=== PATIENT | female | born 1980 | race Caucasian/White ===

== ENCOUNTER → 2018-01-31 10:58 | Outpatient (CLI) | payer OTHER, SELFPAY | PROVIDERS: Family Provider Family Medicine; PCP Family Medicine; Visit Provider Family Medicine | DX: N39.0 Urinary tract infection, site not specified (principal) | CPT/HCPCS: 87086; 87088 ==

== ENCOUNTER → 2018-03-31 11:00 | Outpatient (CLI) | payer OTHER, SELFPAY ==
[2018-03-31 12:48] LABS: Vitamin D,25 Hydroxy 19.2 ng/mL (29.95-100.01)
[2018-03-31 12:50] LABS: Thyroid Stim Hormone (TSH) 0.45 uIU/mL (0.358-3.74)
== END ==
PROVIDERS: Family Provider Family Medicine; PCP Family Medicine; Visit Provider Family Medicine
DX: E55.9 Vitamin D deficiency, unspecified (principal); F41.9 Anxiety disorder, unspecified
CPT/HCPCS: 36415; 82306; 84443

== ENCOUNTER → 2018-04-04 13:14 | Outpatient (CLI) | payer OTHER, SELFPAY | PROVIDERS: Visit Provider Obstetrics & Gynecology | DX: N39.0 Urinary tract infection, site not specified (principal) | CPT/HCPCS: 87086; 87088 ==

== ENCOUNTER → 2018-05-11 13:13 | Outpatient (CLI) | payer OTHER, SELFPAY ==
[2018-05-16 09:07] LABS: HPV Reflexed? NOT INDICATED
== END ==
PROVIDERS: Family Provider Family Medicine; PCP Family Medicine; Visit Provider Obstetrics & Gynecology
DX: Z12.4 Encounter for screening for malignant neoplasm of cervix (principal)
CPT/HCPCS: 88175; G0145

== ENCOUNTER → 2018-07-04 15:43 | Outpatient (CLI) | payer OTHER, SELFPAY ==
[2018-07-04 19:42] LABS: Chlamydia Trachomatis by PCR Negative (Negative); Neisserai gonorrhoeae by PCR Negative (Negative); Probe Check PASS; Sample Adequacy Control PASS; Specimen Processing Control PASS
== END ==
PROVIDERS: Family Provider Family Medicine; PCP Family Medicine; Referring Provider Obstetrics & Gynecology; Visit Provider Obstetrics & Gynecology
DX: Z11.3 Encounter for screening for infections with a predominantly sexual mode of transmission (principal)
CPT/HCPCS: 87491; 87591

== ENCOUNTER → 2018-07-21 12:07 | Outpatient (CLI) | payer OTHER, SELFPAY ==
[2018-07-21 14:19] LABS: Absolute Neutrophil Count 3.9 X10^3/uL (2.0-7.7); Basophil# 0.02 X10^3/uL; Basophil% 0.3 % (0-1); Eosinophil# 0.17 X10^3/uL; Eosinophils% 2.5 % (0-5); Hematocrit 40.1 % (37-47); Lymphocyte % 31.4 % (19-41); Mean Corp Hgb Conc 32.4 g/gl (32-36); Mean Corpuscular Hgb 28.3 pg (27.0-32.0); Mean Corpuscular Volume 87.2 fL (81-99); Mean Platelet Vol. 10.9 fl (6.2-12.0); Monocyte# 0.51 X10^3/uL; Monocyte% 7.6 % (0-10); Neutrophil # 3.88 X10^3/uL (2.7-7.7); Neutrophil % 58.1 % (47-70); Platelet Count 204 K/mm3 (150-450); RBC Distribution Width CV 12.5 % (11.6-14.6); RBC Distribution Width SD 39.8 fl (35.1-43.9); White Blood Count 6.7 K/mm3 (4.4-11.0)
[2018-07-21 14:20] LABS: POSITIVE COUNT NO; POSITIVE DIFFERENTIAL NO; POSITIVE MORPHOLOGY NO
[2018-07-21 14:44] LABS: ALB/GLOB Ratio 1.1 RATIO (0.9-2.4); AST(SGOT) 18 U/L (15-37); Alanine Aminotransfer ALT/SGPT 27 U/L (13-56); Albumin, Serum 3.8 g/dL (3.2-5.0); Alkaline Phosphatase 52 U/L (45-117); Anion Gap 6 (5-15); BUN 17 mg/dL (7-18); BUN/Creat Ratio 19.4 RATIO (10-20); Calcium,Total 8.4 mg/dL (8.5-10.1); Chloride 105 mmol/L (98-107); Creatinine, Serum 0.88 mg/dL (0.55-1.02); EST Glomerular Filtration Rate 77 mL/min (>60); Est Glom Filt Rate - Afr Amer 93 mL/min (>60); Free T3 2.2 pg/mL (2.18-3.98); Globulin 3.5 g/dL (2.2-4.2); Glucose 83 mg/dL (74-106); Potassium 4.1 mmol/L (3.5-5.1); Protein, Total 7.3 g/dL (6.4-8.2); Sodium Level 139 mmol/L (136-145); T4 Free Direct 0.95 ng/dL (0.76-1.46); Thyroid Stim Hormone (TSH) 1.62 uIU/mL (0.358-3.74)
[2018-07-21 14:53] LABS: Vitamin D,25 Hydroxy 18.6 ng/mL (29.95-100.01)
== END ==
PROVIDERS: Family Provider Family Medicine; PCP Family Medicine; Visit Provider Family Medicine
DX: M25.50 Pain in unspecified joint (principal); E03.9 Hypothyroidism, unspecified; E55.9 Vitamin D deficiency, unspecified
CPT/HCPCS: 36415; 80053; 82306; 84439; 84443; 84481; 85025

== ENCOUNTER 2018-07-25 12:30 | Outpatient (RCR) | payer OTHER, SELFPAY ==
--- NOTE | 2018-04-28 13:06 | MASS.EVAL_ITS ---
Massage Therapy Evaluation: Initial Evaluation Date: 04/20/2018 SUBJECTIVE: Jolynn is a 37 year old female who was referred to the [facility] for a massotherapy evaluation by Dr. Cheatham with the diagnosis of back and neck pain. Jolynn presents today with the symptoms of neck and upper back pain and tension. She also has muscle tension and pain in his low back. She reports having a medical history of chronic neck pain with radiating pain in her neck, upper and mid back. She reports having minimal limitations during her daily activities. OBJECTIVE: Upon observation Jolynn has poor posture with her head forward and shoulders forward from the neutral position in sitting and standing. After examination and palpation I found her to have very high muscle tension with tenderness and myofascial restrictions in her sub occipitals, levator scapulae, trapezius, rhomboids, scalenes, and thoracic paraspinals. Her cervical through lumbar paraspinals were tight and ropey. The first treatment consisted of a one hour massage to her full body with myofascial release, muscle stripping, trigger point compression techniques, and cervical manual traction. ASSESSMENT: I feel that Jolynn is a good candidate for massotherapy at this time. She had a favorable response to the first treatment with reduction in her muscle aches, pain and tension. She was able to relax and tolerate deeper pressure when needed PLAN: The plan of care was reviewed with the patient. The patient is to be seen on as needed basis for a total of ten sessions with the recommendation of once every four weeks for a one hour treatment.
--- NOTE | 2018-08-14 11:20 | DS.PCM_ITS ---
Massage Therapy Discharge Summary: Initial Evaluation: 04/30/2018 Diagnosis: Cervicalgia No. of Visits: Date of last visit: 07/25/2018 Goals: Decreased headaches Decreased back and neck pain Decreased muscle tension This patient is being discharged from our care at the [facility]. Thank you, Ariadne Gonzalez LMT
== END 2018-07-25 19:00 | disposition home or self-care (01) ==
LOC: MASS 12:30
PROVIDERS: Family Provider Family Medicine; PCP Family Medicine; Visit Provider Family Medicine
DX: M54.2 Cervicalgia (principal); M54.9 Dorsalgia, unspecified
CPT/HCPCS: 97124

== ENCOUNTER → 2018-11-19 14:24 | Outpatient (CLI) | payer OTHER, SELFPAY ==
[2018-11-19 10:20] VITALS: BMI 25.0
[2018-11-19 14:25] LABS: Bacteria 0 SEEN /hpf (None Seen); Mucous, Urine 0 SEEN /hpf (<or=2+); Red Blood Cells-Urine 0 SEEN /hpf (0-5)
[2018-11-19 14:42] LABS: Color, Urine Yellow (Yellow); Glucose, Dipstick Normal (Normal); Ketone-Dipstick Negative (Negative); Leukocyte Esterase-Dipstick Negative /ul (Negative); Nitrite-Dipstick Negative (Negative); Occult Blood-Urine Negative /ul (Negative); Protein-Dipstick Negative (Negative); Urine Bilirubin Dipstick Negative (Negative); Urine Clarity Clear (Clear); Urine Urobilinogen Normal (Normal)
[2018-11-19 14:51] LABS: Squamous Epithelial Cells - UA 0-5 SEEN /hpf (5-10); White Blood Cells 0-5 SEEN /hpf (0-5)
== END ==
PROVIDERS: Family Provider Family Medicine; PCP Family Medicine; Referring Provider Physician Assistant; Visit Provider Physician Assistant
DX: R30.0 Dysuria (principal)
CPT/HCPCS: 81001; 87086; 87088

== ENCOUNTER → 2019-03-12 | Outpatient (CLI) | payer OTHER, SELFPAY ==
[2018-11-19 10:20] VITALS: BMI 25.0
[2019-03-12 10:06] LABS: Mucous, Urine 0 SEEN /hpf (<or=2+); Red Blood Cells-Urine 0 SEEN /hpf (0-5)
[2019-03-12 13:20] LABS: Color, Urine Straw (Yellow); Glucose, Dipstick Normal (Normal); Ketone-Dipstick 5 mg/dl (Negative); Leukocyte Esterase-Dipstick 500 /ul (Negative); Nitrite-Dipstick Negative (Negative); Occult Blood-Urine 25 /ul (Negative); Protein-Dipstick 30 mg/dl (Negative); Specific Gravity, Urine 1.025 (1.002-1.030); Urine Bilirubin Dipstick Negative (Negative); Urine Clarity Cloudy (Clear); Urine Urobilinogen Normal (Normal)
[2019-03-12 13:23] LABS: White Blood Cells >100 SEEN /hpf (0-5)
[2019-03-12 13:24] LABS: Amorphous Sediment 3+; Bacteria 4+ /hpf (None Seen); Squamous Epithelial Cells - UA 0-5 SEEN /hpf (5-10)
== END | disposition home or self-care (01) ==
LOC: LABSPEC 10:03
PROVIDERS: Family Provider Family Medicine; PCP Family Medicine; Referring Provider Family Medicine; Visit Provider Family Medicine
DX: R30.0 Dysuria (principal)
CPT/HCPCS: 81001; 87086; 87088

== ENCOUNTER → 2019-04-26 08:41 | Outpatient (CLI) | payer OTHER, SELFPAY ==
[2018-11-19 10:20] VITALS: BMI 25.0
[2019-04-26 10:49] LABS: Thyroid Stim Hormone (TSH) 0.69 uIU/mL (0.358-3.74)
[2019-04-27 14:43] LABS: PTHIN 60.6 pg/mL (18.4-80.1)
== END ==
PROVIDERS: Family Provider Family Medicine; PCP Family Medicine; Referring Provider Family Medicine; Visit Provider Family Medicine
DX: E03.9 Hypothyroidism, unspecified (principal); E55.9 Vitamin D deficiency, unspecified
CPT/HCPCS: 36415; 82306; 83970; 84443

== ENCOUNTER → 2019-07-25 13:15 | Outpatient (CLI) | payer SELFPAY ==
[2018-11-19 10:20] VITALS: BMI 25.0
--- NOTE | 2019-07-25 13:32 | MRI_ITS ---
STUDY: BILATERAL BREAST MR WITHOUT AND WITH CONTRAST REASON FOR EXAM: Female, 38 years old. Bilateral implant placement in 2002. Evaluation for implant integrity. TECHNIQUE: Multi-sequence multi-echo imaging of both breasts was performed with a dedicated breast coil. T1-weighted and T2-weighted images were performed without intravenous contrast. COMPARISON: MRI of the breast dated October 12, 2016. FINDINGS: Bilateral subpectoral silicone implants with prominent folds bilaterally, relatively unchanged. No intracapsular or extracapsular rupture. There are no enlarged or abnormal lymph nodes. There is no abnormality in the visualized regions of the chest or liver. MRI/BREAST W/O CONT BILAT IMPRESSION: Bilateral subpectoral silicone implants with prominent folds and no other abnormality. CATEGORY: BIRADS Category 2: Benign. A letter regarding these results will be sent to the patient by the facility within 30 days. Electronically Signed: Horacio Noel MD at 18:00 EST , Service support ,
== END ==
PROVIDERS: Family Provider Family Medicine; PCP Family Medicine; Referring Provider Family Medicine; Visit Provider Family Medicine
DX: Z98.82 Breast implant status (principal)
CPT/HCPCS: 77047

== ENCOUNTER → 2019-10-15 11:53 | Outpatient (CLI) | payer OTHER, SELFPAY ==
[2018-11-19 10:20] VITALS: BMI 25.0
[2019-10-15 15:57] LABS: Free T3 2.6 pg/mL (2.18-3.98); T4 Free Direct 1.07 ng/dL (0.76-1.46); Thyroid Stim Hormone (TSH) 0.75 uIU/mL (0.358-3.74)
== END ==
PROVIDERS: Nurse Practitioner Adult Health; PCP Family Medicine; Referring Provider Family Medicine; Visit Provider Family Medicine
DX: E03.9 Hypothyroidism, unspecified (principal)
CPT/HCPCS: 36415; 84439; 84443; 84481

== ENCOUNTER 2020-03-18 14:00 | Outpatient (RCR) | payer OTHER, SELFPAY ==
[2020-03-10 09:21] VITALS: BMI 25.0
--- NOTE | 2020-03-18 14:36 | BH.MTP_ITS ---
Master Treatment Plan - Patient Information Program Physician:: Dr. Gaona Primary Therapist:: Rosalba Wood, [facility] - Psychiatric Diagnoses Psychiatric Diagnoses:: Major depressive disorder, recurrent, severe without psychosis; generalized anxiety disorder Diagnosis Code(s):: F33.2 - Estimated LOS Estimated LOS (in weeks):: 6 Problem/Goal #1 - Problem/Goal #1 Stated Goal:: Client will decrease depression, feeling of worthlessness, and suicidal ideation due to Major Depression Disorder through Intensive Outpatient Program. Description of Barriers: Pt's negative thought patterns, low self-esteem, dissatisfaction with work, relationship stress and daily suicidal thoughts. Functional Impact: Pt presented to [facility] with increased suicidal thoughts, worsening depression and anxiety. Pt reported struggling with worsening mental health symptoms at beginning of 2019. Pt attributed worsening mental health symptoms to numerous changes within her work department that led to decreased job satisfaction. Pt was planning to move to a different position but once the pandemic happened pt stated there were no positions available. Pt stated her mental health symptoms interfere with her ability to function at baseline while at work. Pt reported she sleeps a lot which impacts her involvement with her daughter. Pt is seeking FMLA off of work due to mental health symptoms. Goal Relevant Strengths/Supports: Pt is resilient, intelligent, goal-oriented, and expresses motivation to get better. - Objectives Objective #1 Stated Objective: Identify and replace 3-4 negative and distorted thought pa tterns that reinforce depressive symptoms.?? Interventions: Therapist will help client identify distorted, negative beliefs about self and world and replace those messages with positive, affirmative messages.? Discharge Criteria: Client will have achieved this goal when can identify at least 3 negative and distorted messages and replace those messages with positive, affirmative messages and be able to combat suicidal thoughts. Target Date: 04/29/20 Review Date: 04/15/20 Objective #2 Stated Objective: Pt will decrease depressive symptoms AEB pt?s score on the DSM 5 cross-cutting measure and improve pt?s daily functioning. Interventions: Through groups and individual therapy, pt will be provided with education on cognitive distortions, mistaken beliefs, and identifying and combating negative self-talk. Therapist will assist pt with getting back into the activities she once enjoyed as well as increasing healthy coping strategies. Discharge Criteria: Pt will have met this goal when pt?s score on the DSM 5 c ross cutting measure for depression has been decreased and per pt?s report daily functioning has improved. Target Date: 04/29/20 Review Date: 04/15/20 Problem/Goal #2 - Problem/Goal #2 Stated Goal:: Client will reduce overall frequency, intensity, and duration of the anxiety so that daily functioning is not impaired.? Description of Barriers: Pt's negative thought patterns, low self-esteem, dissatisfaction with work, relationship stress and daily suicidal thoughts. Functional Impact: Pt presented to [facility] with increased suicidal thoughts, worsening depression and anxiety. Pt reported struggling with worsening mental health symptoms at beginning of 2019. Pt attributed worsening mental health symptoms to numerous changes within her work department that led to decreased job satisfaction. Pt was planning to move to a different position but once the pandemic happened pt stated there were no positions available. Pt stated her mental health symptoms interfere with her ability to function at baseline while at work. Pt reported she sleeps a lot which impacts her involvement with her daughter. Pt is seeking FMLA off of work due to mental health symptoms. Goal Relevant Strengths/Supports: Pt is resilient, intelligent, goal-oriented, and expresses motivation to get better. - Objectives Objective #1 Stated Objective: Client will learn and implement 2-3 calming skills to reduce overall anxiety and manage anxiety symptoms. Interventions: Therapist will teach client calming/relaxation skills and assign client homework which practices relaxation skills daily. Discharge Criteria: Client will have achieved this goal when can verbalize at least 2 calming skills and implement those skills successfully. Target Date: 04/29/20 Review Date: 04/15/20 Objective #2 Stated Objective: Pt will decrease anxious symptoms AEB pt?s score on the DSM 5 cross-cutting measure improve pt?s daily functioning. Interventions: Through groups and individual therapy, pt will be provided education about anxiety?s impact on body and common physiological reaction to anxiety. Therapist will teach pt appropriate breathing techniques and build healthy coping skills to manage daily anxieties. Discharge Criteria: Pt will have met this goal when pt?s score on the DSM 5 cross cutting measure for anxiety has been decreased and per pt?s report daily functioning has improved. Target Date: 04/29/20 Review Date: 04/15/20
--- NOTE | 2020-03-18 15:33 | BH.MDN ---
Multi-Disciplinary Note - Note 60-min Individual Time Started:: 13:00 Date: 03/18/20 Time Stopped:: 14:00
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
--- NOTE | 2020-03-19 13:09 | BH.PSY.EVA_ITS ---
Initial Treatment Plan - Patient Information Visit Information: ADMISSION DATE: EXPECTED LOS: 4-6 weeks - Problems/Symptoms Problem #1:: Depression Symptom:: Sadness, crying, hopelessness, worthlessness, anhedonia, suicidal paola ation, biological disruption of sleep Problem #2:: Anxiety Symptom:: Inner restlessness< rumination, worry
--- NOTE | 2020-03-20 13:33 | BH.MDN ---
Multi-Disciplinary Note - Note 45-min Individual Time Started:: 11:05 Date: 03/20/20 Time Stopped:: 11:45
--- NOTE | 2020-03-21 14:34 | BH.MDN ---
Multi-Disciplinary Note - Note 45-min Individual Time Started:: 11:02 Date: 03/21/20 Time Stopped:: 11:50
--- NOTE | 2020-03-25 14:34 | BH.MDN ---
Multi-Disciplinary Note - Note 45-min Individual Time Started:: 14:33 Date: 03/25/20 Time Stopped:: 15:19
--- NOTE | 2020-03-31 09:05 | BH.SGPN.GN ---
Behaviors/Verbalizations/Mental Status: []Client alert and oriented, neatly dressed and groomed. Eye contact good. Motor activity appropriate. Speech within normal limits. Affect unable to gather due to wearing a mask for COVID-19 protocol, mood dysthymic. Thoughts linear, logical, no signs of hallucinations or delusions. Reviewed client?s symptom tracker, and client indicated a 2/5 for thoughts of suicide and 0/5 for risk of suicide. Client Response/Progress/Benefit: []Client responded well to session, receptive to feedback and support. Client's first day of IOP group and client reports feeling anxious and depressed this morning. Client shared her depression and anxiety are what brought client to IOP and client shared her symptoms have been getting worse since October. Client stated she was unable to take time off work because her department was under-staffed. Client stated when she finally took time off for her mental health I lost it. Client reported she wants to work on building healthy coping skills to reduce her anxiety and depression. Client would like to improve her mental health, so client can return to work and function at her baseline. Appeared to benefit from connecting with peers. Will continue IOP tx to prevent decompensation, maintain safety, and improve emotional regulation. Narrative Note: []
--- NOTE | 2020-03-31 10:14 | BH.SGPN.GN ---
Behaviors/Verbalizations/Mental Status: []Client alert and oriented, casual dress, hygiene tended to. Eye contact fair. Motor activity appropriate. Speech within normal limits. Affect could not be assessed due to pt wearing a mask as a requirement for COVID-19 pandemic. mood anxious and dysthymic. Thoughts linear, logical, no signs of hallucinations or delusions. Client Response/Progress/Benefit: []Pt receptive to session, quiet but provided input at times and listened attentively to peers. Provided input as the group brainstormed the positive and negative aspects of stress on physical and mental health. Group did well to identify that the benefits of stress include: motivates us, heightened senses/focus, increased productivity, and keeps us safe. Client identified her current stressors that impact her the most include: feeling like not good enough mom for her daughter, not feeling good enough for her boyfriend and wanting to find a new job. Seemed to benefit from increased awareness of personal stressors and understanding impact of stress of the mind and body. First day in IOP groups. Recommended to continue IOP tx to improve healthy coping skill application, increase self-confidence, and prevent decompensation. Narrative Note: []
--- NOTE | 2020-03-31 11:16 | BH.SGPN.GN ---
Behaviors/Verbalizations/Mental Status: []Client alert and oriented, casually dressed and groomed. Eye contact good. Motor activity appropriate. Speech within normal limits, quiet. Affect unable to gather due to wearing a mask for COVID-19 protocol, mood depressed and anxious. Thoughts linear, logical, no signs of hallucinations or delusions. Client Response/Progress/Benefit: []Client engaged participant in session AEB client listening attentively to others, providing some input, and taking notes during session. Client reported when she does not manage stress well client experiences increased isolation and negative thinking. Reports this ?helps in the short-term but makes things worse in the long-run?. Client contributing during discussion about the 4 A's of managing stress. Client able to give different strategies for all the A's and indicated agreeing with several of the suggestions presented by the group. Identified she wants to work on managing stressor of feeling ?I?m not enough for my daughter? by identifying and altering her distorted thoughts and instead focusing on her strengths as a mother. Client shared this will help reduce negative thoughts and increase self-confidence. Client seemed to benefit from increased awareness of the impact of stress on mental health and increasing repertoire of stress management strategies. Will continue IOP tx to promote use of healthy coping skills, improve management of depression and anxiety, as well as prevent decompensation. Narrative Note: []
--- NOTE | 2020-03-31 14:35 | BH.MDN ---
Multi-Disciplinary Note - Note 45-min Individual Time Started:: 12:08 Date: 03/31/20 Time Stopped:: 12:46
--- NOTE | 2020-04-01 09:05 | BH.SGPN.GN ---
Behaviors/Verbalizations/Mental Status: [] Client alert and oriented, casual dress, hygiene tended to. Eye contact good. Motor activity appropriate. Speech within normal limits. Affect unable to accurately assess as client wearing mask per COVID-19 protocol, mood depressed and anxious. Thoughts linear, logical, no signs of hallucinations or delusions. Reviewed client?s symptom tracker, suicidal ideation self-reported as a 2/5 which is consistent with baseline, pt denies plan, or intent as of 04/01/20. Client Response/Progress/Benefit: [] Pt responded well to session, attentive and willing to provide input. Reports feeling anxious today as it is her second day in group treatment and is still learning to adjust to group setting. She did well to identify current mental health wins from prior day which included not going back to bed after group and spending time with her daughter. Did well to challenge herself to identify spending time with her daughter as a personal strength as a mother which she reports has been an area of struggle recently. Pt noted that her current stressor includes ongoing negative thoughts related to her current relationship. Identified thought challenging as a strategy helpful in managing her distortions. Progress limited as pt new to IOP setting, though appears to be doing well to internalize skills learned. Pt to continue IOP tx to increase coping skill repertoire, improve thought challenge skills, reduce depressive symptoms, and prevent decompensation.
--- NOTE | 2020-04-01 11:13 | BH.SGPN.GN ---
Behaviors/Verbalizations/Mental Status: []Client alert and oriented, casual appearance. Eye contact good. Motor activity appropriate. Speech within normal limits. Affect unable to gather due to wearing a mask for COVID-19 protocol, mood depressed. Thoughts linear, logical, no signs of hallucinations or delusions. Client Response/Progress/Benefit: []Client responded well to session, participating during the group activity and willing to complete the worksheet. Client completed the fear of failure worksheet and reported that fear of failure has kept client from pursuing a higher position at work and being vulnerable in relationships. Client able to identify barriers that reinforce her fear of failure which included: negative self-talk, discounting positives, lack of self-care, and unrealistic expectations. Client attentive during discussion of the different strategies to help overcome fear of failure. Group identified strategies such as: self-compassion, grounding, challenging distortions, and positive affirmations. Client reported her past failures have taught client that ?there are other chances, it?s not absolute.? Client appeared to benefit from learning ways to overcome fear of failure. Will continue IOP tx to prevent decompensation, increase healthy coping skills, and reduce distortions. Narrative Note: []
--- NOTE | 2020-04-03 13:36 | BH.MDN ---
Multi-Disciplinary Note - Note 60-min Individual Time Started:: 09:09 Date: 04/03/20 Purpose of session/treatment goals addressed:: To address current symptoms, negative thoughts, and stressors. Another goal was to create small behavioral activation goals for today. Eye Contact:: Good Motor Activity:: Appropriate Appearance:: Neat Speech:: Soft Mood:: Dysthymic Affect:: Congruent - tearful Thoughts:: Linear, Logical, No evidence of hallucinations/delusions noted Staff Interventions:: Therapist used active listening and open-ended questions to explore client's current stressors, symptoms, and negative thoughts. Therapist provided psychoeducation on maintenance cycles, distorted thoughts, and depression. Therapist used cognitive restructuring to help client identify and challenge distorted thoughts reinforcing depression and anxiety. Therapist used strengths perspective to help client identify mental health wins and combat self-judgment. Therapist gave client homework to engage in behavioral activation activities using LUNA (accomplishment, closeness, and enjoyment). Client Response:: Client responded well to session, open to meeting with this therapist as her usual IOP therapist is off today. Client stated on days she does not come to IOP, client has a very difficult time getting out of bed. Client reported I won't even be tired, I'll just lay in bed. Client connected with psychoeducation on depression and maintenance cycles. Client was tearful at times, especially when using should language on herself and thinking about her boyfriend. Client often used cognitive distortions and was receptive to this therapist helping client challenge them. Client admits to being hard on herself and shared that her low self-worth has caused client to push away supports. Discussed mind-reading and how pushing away supports reinforces depression and negative self-talk. Client and therapist discussed the benefits of self-care and client willing to set an LUNA goal today. Client stated her depression makes it hard for client to get things done because client does not have motivation. Client also has not been enjoying things, but client recognized that she cannot wait to find enjoyment client must create it. Client's goal today was to clean her bathroom, play a game with her daughter, and go to the [employer] store for supplies to try pour painting. Client shared she will follow through with these goals because typically if I tell someone I'll do something I do it. Plans to attend group tomorrow. Risks/Concerns:: Client reports having fleeting suicidal ideations every day, but denies any intent to act on these thoughts as of 04/03/20. Client reports ability to keep herself safe today and was future oriented. Client plans to go get craft supplies after IOP and play a game with her daughter ramona. Daughter is what keeps client from acting on her suicidal ideations. No access to weapons and her stepmother keeps client's medications. Progress Toward Goals/Plan:: Client's first week of IOP. Per client's report she is connecting well with peers and it is helpful to know I'm not alone. Client endorses a depressed mood with anhedonia, lack of energy, isolative behaviors, fleeting SI with methods of overdosing, negative thoughts of self, crying spells, weight loss, and lack of motivation. Client continues to feel able to keep herself safe and client does not have access to weapons and her stepmother has client's medications. Client will continue IOP tx to prevent decompensation, maintain safety, and increase healthy coping skills. Time Stopped:: 10:04
--- NOTE | 2020-04-04 09:00 | BH.SGPN.GN ---
Behaviors/Verbalizations/Mental Status: [] Eye contact is good. Motor activity is appropriate. Appearance is casual. Speech is Appropriate. Mood is euthymic. Affect is full. Thoughts are linear and logical. No evidence of psychosis. Reviewed daily check in sheet and no reports of suicidal ideations or intent. Client Response/Progress/Benefit: [] Pt participated at times during group discussion. Emotion for today is cautiously hopeful. Symptom tracker notes 4/5 for anxiety and hopelessness and 2/5 for agitation. Shared with the group that she completed her goal yesterday which involved LUNA in which she accomplished something, was close with someone, and did something that she enjoyed. States it was the best I've felt in months. Insight into how the tasks improved her mental health. Able to identify how she wanted to isolate however pushed herself to do something different which was effective. Progress noted. Benefited from group support, encouragement, and feedback. Will continue in IOP to maintain safety, improve functioning , and improve functioning to return to work. Narrative Note: []
--- NOTE | 2020-04-04 10:00 | BH.SGPN.GN ---
Behaviors/Verbalizations/Mental Status: []Client alert and oriented, casual appearance. Eye contact good. Motor activity appropriate. Speech within normal limits. Affect unable to gather due to wearing a mask for COVID, mood euthymic. Thoughts linear, logical, no signs of hallucinations or delusions. Client Response/Progress/Benefit: []Client responded well to session, attentive during discussion and engaged during the activity. Client connected with the quote and the barriers associated with making changes. Group reported even though change can be scary, change can be positive. Worked with the group to identify barriers to making change, which included: toxic supports, lack of resources and money, lack of time, cognitive distortions, and fear of failure. Client was frequently nodding when the group discussed fear of failure and fear of success as barriers to making changes. Client participated in the activity where they identified and discussed the emotions related to change. Benefited from increased awareness and understanding of emotions, benefits, and barriers related to change. Will continue IOP tx to prevent decompensation, maintain safety, and reduce cognitive distortions that reinforce low self-esteem. Narrative Note: []
--- NOTE | 2020-04-04 11:14 | BH.SGPN.GN ---
Behaviors/Verbalizations/Mental Status: []Client alert and oriented, casually dressed and groomed. Eye contact good. Motor activity appropriate. Speech within normal limits. Affect unable to gather due to wearing a mask for COVID-19 protocol, mood anxious. Thoughts linear, logical, no signs of hallucinations or delusions. Client Response/Progress/Benefit: []Client was an active participant throughout AEB actively listening and taking notes. Client attentive during discussion on the change process and review of emotions one might experience throughout the process of change. Expressed relating to the examples provided by fellow participants on their experiences in different stages of change. Client indicated discouragement, fear, and stress as emotions she has associated with change in the past. Client benefited from working with the group to identify potential strategies for promoting healthy change behaviors. Identified wanting to make more of an effort to track personal progress as a means of reminding herself of progress made towards the desired change already. Shared this will help remind her of where she is doing well even when faced with setbacks. Progress noted in pt self-report of increased skill application for challenging negative thoughts, though continues to struggle with negative self-talk and depression. Recommended continued IOP tx to prevent decompensation, promote increase use of affirmations, and increase application of anxiety and depression management skills. Narrative Note: []
--- NOTE | 2020-04-07 09:01 | BH.SGPN.GN ---
Behaviors/Verbalizations/Mental Status: []Client alert and oriented, casually dressed and groomed. Eye contact good. Motor activity appropriate. Speech within normal limits. Affect unable to gather due to wearing a mask for COVID-19 protocol- but tearful, mood dysthymic and anxious. Thoughts linear, logical, no signs of hallucinations or delusions. Reviewed client?s symptom tracker, 2/5 for thoughts of suicide and 0/5 for risk or intent as of 04/07/20. Future oriented. Client Response/Progress/Benefit: []Client responded well to session, attentive and providing supportive statements. Client reports feeling sick to my stomach today due to ruminations and stressors within her relationship. Client declined to go into detail about the relationship stressors. Client stated she only stayed in bed one day this weekend which is progress as client has been significantly struggling to get out of bed. Client shared she went for a hike, took pictures of the [place], and practiced thought challenging this weekend. Appeared to benefit from reflecting on her generalization of coping skills. Progress noted as client reported reduced isolation this weekend. Will continue IOP tx as to prevent decompensation, improve emotional regulation, and reduce negative thinking. Narrative Note: []
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
--- NOTE | 2020-04-07 11:15 | BH.SGPN.GN ---
Behaviors/Verbalizations/Mental Status: []Client alert and oriented, casually dressed and groomed. Eye contact fair. Motor activity appropriate. Speech within normal limits. Affect could not be assessed due to pt wearing a mask as a requirement during the COVID-19 pandemic. Mood depressed and anxious. Thoughts linear, logical, no signs of hallucinations or delusions. Client Response/Progress/Benefit: []Client responded well to session, contributing at times to discussion, and appeared to listen attentively to peers. Remained attentive during psychoeducation on the boundary setting styles and nodded as fellow participants discussed areas in which they have struggled with each style. Pt stated she has porous boundaries with her family and friends because she struggles with saying no and just goes along with what others want to do. Pt reported she has rigid boundaries within her romantic relationship because she keeps her current boyfriend at a distance because of fear she will get hurt. Pt recognizes Pt attributed having porous boundaries to having a whom is very rigid so she doesn't feel like her opinions matter. Pt did complete task of identifying a small goal she can work towards to improve her boundaries. Seemed to benefit from increased awareness of how her current boundary style impacts her mental health. Will continue IOP tx to increase use of healthy coping skills, maintain safety, and prevent decompensation. Narrative Note: []
--- NOTE | 2020-04-08 10:05 | BH.SGPN.GN ---
Behaviors/Verbalizations/Mental Status: []Client alert and oriented, neatly dressed and groomed. Eye contact good. Motor activity appropriate. Speech within normal limits. Affect unable to gather due to wearing a mask for COVID-19 protocol, mood dysthymic. Thoughts linear, logical, no signs of hallucinations or delusions Client Response/Progress/Benefit: []Client was an active participant as shown by contributing to discussion. Client shared connecting to group topic of self-care and commented that she often puts off self-care by telling herself ?I just need to get through this month.? However, client recognized this only makes her mental health suffer. Client helped the group discuss the costs of not practicing self-care which included: poor functioning, increased depression and anxiety, poor memory, lack of concentration, more negative thinking, and harms relationships. Participated in the discussion of the common myths about self-care including: ?one and done,? selfish, not a big deal, makes a person look weak, and not having time. Client participated in the discussion on debunking of these myths. Client seemed to benefit from increased awareness of the importance of self-care and challenging common myths that prevent practicing self-care. Progress noted as client reports more awareness of distortions that reinforce depression and anxiety. Will continue IOP tx to further decrease intensity of symptoms that impair functioning and to reduce cognitive distortions. Narrative Note: []
--- NOTE | 2020-04-08 11:14 | BH.SGPN.GN ---
Behaviors/Verbalizations/Mental Status: []Client alert and oriented, casual dress, hygiene tended to. Eye contact good. Motor activity appropriate. Speech within normal limits. Affect could not be assessed due to pt wearing a mask for COVID-19 safety precautions. mood anxious and depressed. Thoughts linear, logical, no signs of hallucinations or delusions. Client Response/Progress/Benefit: [] Client remained a more active participant AEB pt providing increased input during session, listening attentively to others, and willing to complete self-assessment worksheet. Contributed to group discussion on various areas of self-care, benefits, and types of self-care activities for each area. Expressed that balance in these different areas can be difficult to maintain at times. Client completed activity in which she assessed her own utilization of the different areas of self-care. She was able to identify current practices she actively uses, as well as areas she can improve upon. Client reported she can improve her areas of emotional and social self-care. Stated she could begin to do so by making more of an effort to reach out to her supports more often rather than isolating or relying solely on one support. Client appeared to benefit from increasing awareness of how she can improve self-care balance. Progress noted as client has been able to increase self-awareness and begin to learn healthy coping skills, though continues to appear to struggle with distorted thoughts associated with her own self-worth and relationships with others that impedes pt ability to set boundaries and engage in self-care. Will continue IOP tx to increase utilization of healthy coping skills, challenge negative thoughts, maintain safety, and prevent decompensation. Narrative Note: []
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
--- NOTE | 2020-04-09 09:02 | BH.SGPN.GN ---
Behaviors/Verbalizations/Mental Status: []Client alert and oriented, casually dressed and groomed. Eye contact good. Motor activity appropriate. Speech within normal limits, quiet. Affect unable to gather due to wearing a mask for COVID-19 protocol, mood dysthymic and anxious. Thoughts linear, logical, no signs of hallucinations or delusions. Reviewed client?s symptom tracker. Client suicidal ideation reported as a 2/5 which is consistent with baseline, denies any current plan or intent as of 04/09/20. Client Response/Progress/Benefit: []Pt responded well to session, actively engaged throughout and was willing to process with group. Reports feeling ?disappointed today as she discussed being upset she has allowed others to violate her boundaries in the past and negatively impact her emotions. Pt was receptive of and appeared to benefit from support provided by group as well as identifying personal areas of progress in this area. Noted that she has made progress in creating new boundaries and following through with maintaining them. Discussed her goal had been to turn off her phone before bed to prevent from answering calls and texts late at night. Expressed feeling empowered by her ability to do so successfully which had encouraged her to leave her phone in the car during group as well. Expressed this will help to focus on the present rather than ruminate about why her boyfriend isn?t texting her which has been an ongoing stressor. Share improved positive self-talk as a result as well. Pt will continue IOP tx to increase utilization of healthy coping and thought challenge skills, improve anxiety management, and prevent decompensation. Narrative Note: []
--- NOTE | 2020-04-09 10:10 | BH.SGPN.GN ---
Behaviors/Verbalizations/Mental Status: []Client alert and oriented, casual dress, hygiene tended to. Eye good. Motor activity appropriate. Speech within normal limits. Affect unable to assess as pt wearing a mask per COVID-19 protocol, mood dysthymic. Thoughts linear, logical, no signs of hallucinations or delusions. Client Response/Progress/Benefit: []Pt responded well to session AEB contributing to discussion. Pt appeared to connect well with the topic of resilience AEB nodding and report that being flexible in life is adventageous. Pt worked with the group during discussion of the costs of resisting change and the benefits of adapting to adversity. Participated in the activity and stated that it can be hard to be resilient when life throw a lot at her. Attentive during psychoeducation on various bradford factors in developing personal resilience. Pt contributed during group discussion identifying benefits of each factor in fostering resilience. Pt seemed to benefit from increasing awareness of strategies to increase personal resilience and the impacts of resilience on managing mental health sx. Progress noted in pt?s reduced suicidal ideations. Will continue IOP tx to promote the use of healthy coping skills, reduce depressive symptoms, and decrease negative self-talk. Narrative Note: []
--- NOTE | 2020-04-09 11:10 | BH.SGPN.GN ---
Behaviors/Verbalizations/Mental Status: [] Eye contact is good. Motor activity is appropriate. Appearance is casual. Speech is Appropriate. Mood is anxious. Affect is congruent. Thoughts are linear and logical. No evidence of psychosis. Client Response/Progress/Benefit: [] Pt was an active participant in group discussions and activity. Attentive during psychoeducation. In pt's small group they looked at defining and discussing how the certain building blocks of resiliency (making connections, avoid seeing crises as insurmountable, accept that change is a part of living, move toward your goals, and take decisive action) help one be self-reliant. Pt believes that she is best at making connections and set a goal to work on improve her keeping things in perspective and avoid seeing crisis as being insurmountable to increase her resilience. Progress noted. Pt benefited from education on the 10 building blocks of resilience and was able to identify areas to work on to improve resilience. Will continue in IOP to maintain safety, improve functioning to return to work, and learn more effective coping skills. Narrative Note: []
--- NOTE | 2020-04-09 11:24 | PCM.BH.PN ---
Progress Note Progress Note: Subjective: Patient is a 39-year-old female with a history of depression and anxiety who is seen in follow-up at the [facility] IOP program. I last saw the patient 3 weeks ago and no medication changes were made at that time as she had just started Wellbutrin and her dose of Prozac had just been increased about 3 days prior to when I saw her. The patient states that she feels she is benefiting from the IOP program and is making progress. Her mood is better insofar as she feels less depressed than she did before but is still very down. Her anxiety symptoms she feels are not improved. She still feels jittery and shaky all the time. She has somewhat of a decreased sleep but wakes up and cannot get back to sleep at times and gets about 5 hours of sleep at night. Her appetite is still little decreased but her weight is now stable. The patient states that she still has fleeting suicidal ideation at times but she says I will never act on it. She still only gets 1 week of medication at a time because she had a plan to overdose on medication but she states that this is not an active plan now. Patient feels her daughter is protective against her completing suicide. Patient goes back to work in about 2 weeks and is worried that her anxiety is not under enough control. Current psych medications: Prozac 60 mg p.o. daily (on this for 3 weeks); 1 Wellbutrin XL 150 mg p.o. every morning (x3 weeks now). Objective: Mental status exam: Patient is a 39-year-old female who appears normal for stated age and is seen wearing a mask due to the COVID pandemic. She has no psychomotor agitation or retardation. Eye contact is good and speech is normal rate and rhythm and fluent with no pressure. Mood is depressed and anxious. Affect is constricted and consistent with depression. Thought process: Goal-directed and organized. Thought content: There is evidence of fleeting suicidal ideation with a history of plan to overdose. No evidence of hallucinations or delusions. No evidence of active suicidal ideation. Insight: Some present. Judgment: Intact. Impulsivity: Moderate. Diagnosis: Major depressive disorder, recurrent, severe without psychosis; generalized anxiety disorder; hypo-thyroidism; primary support and work issues Plan: The patient will continue the IOP program as the education, support, structure, individual and group therapy will hopefully prevent worsening of the patient's symptoms which might require hospitalization. The risks, options, possible complications and side effects of various medications were discussed with the patient and she understands and accepts these. She felt safe during the interview and if at any time she does not feel safe she will let us know or go to the emergency room. The patient was given several options with medications. She was offered the option of Remeron at bedtime which would help with sleep and anxiety. However she refuses this as Remeron has a common side effect of weight gain. The patient wishes to stop the Prozac because she feels it never really helped her. The Prozac will be discontinued and the patient will be started on Effexor XR 75 mg p.o. daily. She will take half a tablet p.o. for the first 2 or 3 days and then increase to a whole tablet of 75 mg daily. She understands that when her anxiety improves her sleep should also improve. I will see the patient in follow-up in 1 to 2 weeks and at that time we will consider a medication for sleep if her sleep difficulty persists. The patient was offered Seroquel 50 mg for sleep but the patient does not want to start more than 1 medicine at a time.
--- NOTE | 2020-04-11 09:00 | BH.SGPN.GN ---
Behaviors/Verbalizations/Mental Status: [] Eye contact is good. Motor activity is appropriate. Appearance is neat. Speech is Appropriate. Mood is anxious. Affect is congruent. Thoughts are linear and logical. No evidence of psychosis. Reviewed daily check in sheet and pt reports 08/19 for suicidal ideations and for intent. Client Response/Progress/Benefit: [] Pt was an active participant in group discussion. Emotion for today is anxious. Shared with the group that her goal since last IOP was to write down and label her negative thoughts. Pt states that the exercise was insightful as she did not realize how often she used cognitive distortions. Progress noted per pt report. Notes increased awareness and insight. Also continues to utilize grounding, mindfullness, and opposite action skills. Benefited from group support, encouragement, and feedback. Will continue in IOP to maintain safety and improve functioning to return to work. Narrative Note: []
--- NOTE | 2020-04-11 10:10 | BH.SGPN.GN ---
Behaviors/Verbalizations/Mental Status: []Client alert and oriented, casually dressed and groomed. Eye contact good. Motor activity appropriate. Speech soft. Affect unable to gather due to wearing a mask for COVID-19 protocol, mood euthymic. Thoughts linear, logical, no signs of hallucinations or delusions. Client Response/Progress/Benefit: []Client was an engaged participant throughout group session AEB client taking notes and contributing in discussion. Group discussed healthy versus unhealthy coping skills and what contributes to people using unhealthy skills. The group stated unhealthy coping skills tend to be easier, instant gratification, and learned behaviors. Client agreed that learning healthy coping skills takes time and effort, but they have more long-term benefits. Client participated in the challenge activity and agreed with the group on the importance of creating a strong foundation of healthy coping skills in order to manage life stressors. Client reported feeling anxious during the activity and stated ?I didn?t want to mess it up for us.? Client tried to avoid participating in building the tower at times due to anxiety, but did well to challenge herself and participate anyway. Client seemed to benefit from increased awareness of importance of increasing healthy coping skills and consequences of utilizing unhealthy coping skills. Client will continue IOP tx to improve mood stability and reduce negative thinking. Narrative Note: []
--- NOTE | 2020-04-11 11:15 | BH.SGPN.GN ---
Behaviors/Verbalizations/Mental Status: []Client alert and oriented, neatly dressed and groomed. Eye contact good. Motor activity appropriate. Speech within normal limits. Affect unable to gather due to wearing a mask for COVID-19 protocol, mood euthymic and anxious. Thoughts linear, logical, no signs of hallucinations or delusions Client Response/Progress/Benefit: []Client responded well to session, connected with activity and participating in discussion. Agreed with peers that it is important to have a balance of healthy internal and external coping skills to best prevent crisis. Client contributed as the group discussed the different categories of coping skills which included distraction, emotional release, grounding, self-love, and thought challenging. Provided examples for each category, but reported she struggles with the self-love category. Client participated in creating a coping skills ?menu? for the five categories of coping skills. Client's coping skill menu included: watching TV, guided imagery, baking, positive affirmations, and asking ?would I say this to a loved one.? Client appeared to benefit from increasing repertoire of healthy coping skills. Client progress shown by increased engagement in groups and reduced SI. Will continue IOP tx to further decrease anxiety, depression, and improve mood stability. Narrative Note: []
--- NOTE | 2020-04-14 09:05 | BH.SGPN.GN ---
Behaviors/Verbalizations/Mental Status: []Client alert and oriented, casual dress, hygiene tended to. Eye contact fair. Motor activity appropriate. Speech within normal limits. Affect could not be assessed due to pt wearing a mask as requirement of COVID-19 pandemic. mood anxious. Thoughts linear, logical, no signs of hallucinations or delusions.Reviewed client?s symptom tracker, pt denies current suicidal thoughts or intention to date. Client Response/Progress/Benefit: []Pt responded well to session AEB pt listening attentively to others and openly sharing thoughts and feelings. Pt stated her goal was to use thought challenge by reminding herself would I say this to someone else. Pt reported she was able to accomplish her goal of having increased awareness of her negative thoughts and able to challenge many of her thoughts. Pt stated she hadn't realized how negative she is towards herself until she intentionally paid attention to it. Pt reported she felt less depressed this weekend and able to stay out of bed during the day. Pt stated she spent quality time with her daughter and also spent time with other family. Progress noted with pt utilizing thought challenge and reporting decrease in depressive symptoms. Pt to continue IOP to continue use of thought challenge, increase self-esteem and prevent decompensation. Narrative Note: []
--- NOTE | 2020-04-14 10:13 | BH.SGPN.GN ---
Behaviors/Verbalizations/Mental Status: []Client alert and oriented, casual dress, hygiene tended to. Eye contact fair. Motor activity appropriate. Speech within normal limits. Affect unable to gather due to client wearing a mask for COVID protocol, mood euthymic and anxious. Thoughts linear, logical, no signs of hallucinations or delusions. Client Response/Progress/Benefit: []Client responded well to session, attentive throughout. Listened and participated throughout group discussion defining conflict and the differences between internal and external conflict. Client shared ?I view conflict as bad, so I?m having a hard time thinking of positives.? Group reported the benefits of addressing conflict as well as identified and discussed consequences of not addressing conflict. Client attentive and contributing during psychoeducation of the different conflict resolution styles. Client reports her conflict style is avoiding and shared ?I avoid until it builds and I explode over nothing.? Client stated this causes negative thinking and negatively impacts client?s relationships ?because they didn?t even know I was upset.? Progress noted as client has been reporting no SI for almost a week. Will continue IOP tx to prevent decompensation, increase the use of healthy coping skills, and reduce negative thinking. Narrative Note: []
--- NOTE | 2020-04-14 11:13 | BH.SGPN.GN ---
Behaviors/Verbalizations/Mental Status: []Client alert and oriented, casually dressed and groomed. Eye contact fair to good. Motor activity appropriate. Speech within normal limits. Affect unable to gather due to wearing a mask for COVID-19 protocol, mood depressed and anxious. Thoughts linear, logical, no signs of hallucinations or delusions. Client Response/Progress/Benefit: []Pt engaged in session AEB listening attentively and taking notes throughout, though remained mostly passive throughout discussion portions of group. Pt participated during the activity in which participants were challenged to eliminate various items through group census. Pt attentive during discussion identifying conflict resolution skills used to complete the task, as well as additional skills for better managing conflict in daily life. Appeared to benefit from psychoeducation regarding impact of conflict on mental health and relationships. Worked with group to identify healthy skills for conflict resolution. Pt identified trying to focus on staying present and not bringing up the past during conflict as a skill she would like to try using when faced with potential conflict situations. Progress noted in pt self-report of improved ability to identify personal progress and challenge negative thoughts as well as improved boundary setting. Will continue IOP tx to promote more consistent use of healthy coping skills, continue to improve communication and depression management, and prevent decompensation. Narrative Note: []
== END 2020-04-14 23:59 ==
LOC: BHIOP 14:00
PROVIDERS: PCP Family Medicine; Referring Provider Psychiatry & Neurology Psychiatry; Visit Provider Psychiatry & Neurology Psychiatry
DX: F33.2 Major depressive disorder, recurrent severe without psychotic features (principal); F41.8 Other specified anxiety disorders; E03.9 Hypothyroidism, unspecified; Z79.899 Other long term (current) drug therapy
CPT/HCPCS: H0035; 90832; 90834; 90837; 90853

== ENCOUNTER → 2020-04-03 12:11 | Outpatient (CLI) | payer OTHER, SELFPAY ==
[2020-03-10 09:21] VITALS: BMI 25.0
[2020-04-03 15:44] LABS: Vitamin D,25 Hydroxy 33.8 ng/mL
[2020-04-03 15:54] LABS: Thyroid Stim Hormone (TSH) 1.13 uIU/mL (0.358-3.74)
== END ==
PROVIDERS: PCP Family Medicine; Referring Provider Family Medicine; Visit Provider Family Medicine
DX: M25.50 Pain in unspecified joint (principal)
CPT/HCPCS: 36415; 82306; 84443

== ENCOUNTER 2020-04-15 09:00 | Outpatient (RCR) | payer OTHER, SELFPAY ==
[2020-03-10 09:21] VITALS: BMI 25.0
--- NOTE | 2020-04-15 09:03 | BH.SGPN.GN ---
Behaviors/Verbalizations/Mental Status: [] Client alert and oriented, casually dressed and groomed. Eye contact good. Motor activity appropriate. Speech within normal limits. Affect unable to gather due to wearing a mask for COVID-19 protocol, mood dysthymic and anxious. Thoughts linear, logical, no signs of hallucinations or delusions. Reviewed client?s symptom tracker, no risk for suicidal ideation, plan, or intent as of 04/15/20. Client Response/Progress/Benefit: [] Pt responded well to session, engaged and willing to process with group. Reports feeling ?anxious today and expressed that this is related to her current stressor which is her mother quitting her job. Pt shared she often struggles with taking on the responsibility of fixing other?s problems. Did well to identify that setting personal boundaries with herself to limit time invested in helping her mom find a new job as well as boundaries with her mother will be important in continuing to make progress. Expressed use of radical acceptance, thought challenging, and mindfulness skills over the past few days which have aided in further improving her overall mental health. Discussed plans to begin journaling this evening as a means of better focusing on the positives as well as for emotional release. Appeared to benefit from support provided by the group environment. Progress noted in improved boundary setting and use of self-care, though continues to struggle with distorted thoughts impacting self-esteem. Will continue IOP tx to continue to promote healthy change behaviors, reduce anxiety and depression, and prevent decompensation. Narrative Note: []
--- NOTE | 2020-04-15 10:20 | BH.SGPN.GN ---
Behaviors/Verbalizations/Mental Status: []Client alert and oriented, casually dressed and groomed. Eye contact good. Motor activity appropriate. Speech within normal limits. Affect unable to gather due to client wearing a mask. Mood anxious. Thoughts linear, logical, no signs of hallucinations or delusions. Client Response/Progress/Benefit: []Client responded well to session, engaged and contributed throughout session. Client listened during group discussion on importance of managing emotions on continued mental health and wellness. Client shared when she becomes frustrated, she becomes ?irrational and I lose sight of the problem.? Group identified barriers emotions can cause during communication. These barriers included: jumping topics, irrational thinking, shutting down, name-calling, and passive-aggressive behaviors. Client participated in the challenge activity and did well to remain calm and positive despite running into barriers. Expressed she just tried to focus on trusting that ?the group wouldn?t run me into things.? Client appeared to benefit from increasing awareness of how emotions can impact mental health and practicing in the moment coping skills. Progress noted in client?s report of no SI for the past week and report of practicing coping skills outside of IOP. Will continue IOP tx to further decrease depressive symptoms, combat distortions, and improve daily functioning. Narrative Note: []
--- NOTE | 2020-04-15 11:22 | BH.SGPN.GN ---
Behaviors/Verbalizations/Mental Status: []Client alert and oriented, casually dressed and appropriately groomed. Eye contact fair. Motor activity appropriate. Speech within normal limits. Affect could not be assessed due to pt wearing a mask as a requirement during COVID-19 pandemic. mood anxious. Thoughts linear, logical, no signs of hallucinations or delusions. Client Response/Progress/Benefit: []Client engaged in session AEB client providing input during discussion and completing worksheet. Attentive during psychoeducation on 4 zones of regulation. Client able to identify feelings and behaviors for each zone. Client reported when she is in the blue zone she tends to isolate, feeling like everything is a mountain, difficulty completing daily responsibilities, and sleeping more. Group identified coping skills one can use to support self in each zone which included: opposite action, exercise, positive self-talk, upbeat music, self-care, thought challenge and grounding. Client reported she will practice the skills of journaling, setting goals, and thought challenge. Benefited from increased education on zones of regulation or stages of alertness for emotions and healthy coping skills to use for each zone. Will continue IOP tx to continue use of healthy coping skills, challenge distorted thoughts and prevent decompensation. Narrative Note: []
--- NOTE | 2020-04-16 09:02 | BH.SGPN.GN ---
Behaviors/Verbalizations/Mental Status: []Client alert and oriented, neatly dressed and groomed-wearing make up and jewelry. Eye contact good. Motor activity appropriate. Speech within normal limits. Affect unable to gather due to wearing a mask for COVID-19 protocol, mood euthymic. Thoughts linear, logical, no signs of hallucinations or delusions. Reviewed client?s symptom tracker, no risk for suicidal ideation, plan, or intent as of 04/16/20. Client Response/Progress/Benefit: []Client responded well to session, attentive and providing supportive feedback. Client reports feeling calm and proud this morning. Client shared her gameplan from group yesterday was to journal and client accomplished this. Client reported she is beginning to recognize that she has made progress and is starting to feel better. Client shared I even put makeup and jewelry on today. Client stated she has been using thought challenging and opposite action which has helped client break depressive cycles. Client reported before she began regularly practicing thought challenging I didn't realize how negative I was being to myself. Client shared her stressor today is her mother's employment status, but client is trying to remind herself that she can set boundaries with her mother. Appeared to benefit from reflecting on progress and growth. Progress noted in client's reduced depressive symptoms, no report of SI, and increased application of coping skills. Will continue IOP tx to promote gains, further combat distorted thought patterns, and improve daily functioning to help client return to work. Narrative Note: []
--- NOTE | 2020-04-16 10:12 | BH.SGPN.GN ---
Behaviors/Verbalizations/Mental Status: []Client alert and oriented, casually dressed and appropriately groomed. Eye contact fair. Motor activity appropriate. Speech within normal limits. Affect could not be assessed due to pt wearing a mask as a requirement during COVID-19 pandemic. mood anxious. Thoughts linear, logical, no signs of hallucinations or delusions. Client Response/Progress/Benefit: []Client was an engaged participant AEB client appearing to connect with others comments during discussion and participating in activity. Client connected with peers comments that sometimes you don't realize you are on the wrong path because lack awareness. Client helped the group discuss barriers that keep them stuck from choosing a healthier path to mental wellness. These barriers included: external stressors, comfort, lack of awareness, temptations, family and friends, and distortions. Group worked together to identify examples of personal pitfalls which included: depression, anxiety, lack of self-care, holding in emotions, avoidance, no motivation, and not communicating with supports. Engaged during the activity and did well to manage own emotions throughout. Benefited from increased awareness on the impact that pitfalls can have on mental health. Will continue IOP tx to further decrease negative thinking, increase self-confidence, and prevent decompensation. Narrative Note: []
--- NOTE | 2020-04-17 11:15 | BH.SGPN.GN ---
Behaviors/Verbalizations/Mental Status: []Client alert and oriented, casually dressed and groomed. Eye contact good. Motor activity appropriate. Speech within normal limits. Affect unable to gather due to client wearing a mask for COVID-19 protocol, mood euthymic/anxious. Thoughts linear, logical, no signs of hallucinations or delusions. Client Response/Progress/Benefit: [] Client receptive of session, engaged throughout AEB client participating in discussion, asking questions, and listening to others. Processed activity with group and connected it to overcoming personal pitfalls in life. Client completed a worksheet where she identified personal pitfalls impacting mental health progress. Identified pitfalls as: anxiety, depression, feeling out of control, past experiences, difficulty trusting others, negative thoughts, and procrastination. Attentive and contributing during group brainstorm of strategies to overcome pitfalls. Client stated she will work on the pitfall of procrastination. Client stated she will work on this by planning and scheduling tasks for specific times ahead of time, as well as use a production planner. Benefited from identifying personal pitfalls and strategies to overcome these pitfalls. Progress noted in self-report of reduced depression and improved boundary setting, though continues to struggle in these areas. Client to continue IOP level of care to improve self-confidence, continue to promote healthy change behaviors, and improve daily functioning. Narrative Note: []
--- NOTE | 2020-04-18 09:07 | BH.SGPN.GN ---
Behaviors/Verbalizations/Mental Status: []Client alert and oriented, neatly dressed and groomed. Eye contact good. Motor activity appropriate. Speech within normal limits. Affect unable to gather due to wearing a mask for COVID-19 protocol, mood euthymic and anxious. Thoughts linear, logical, no signs of hallucinations or delusions. Reviewed client?s symptom tracker, no risk for suicidal ideation, plan, or intent as of 04/18/20. Client Response/Progress/Benefit: []Client responded well to session, attentive and receptive to peers. Client reports feeling ambivalent this morning due to feeling some anxiety about her relationship and work. Overall, client shared she has been doing better and that her friends have commented on client's improved affect and mood. Client stated she can personally notice more energy, less isolating, and being more active in general. Client shared she followed through with her gameplan from group which was to reduce procrastination. Client stated she did this by planning ahead and making frozen dinners for client and her daughter on busy week nights. Appeared to benefit from reflecting on progress in increased mood stability. Progress noted AEB self-report of reduce intensity of symptoms and no SI. Client continues to struggle with distorted thinking that reinforces low self-esteem. Will continue IOP tx to promote gains and further improve functioning to help client return to work. Narrative Note: []
--- NOTE | 2020-04-18 10:13 | BH.SGPN.GN ---
Behaviors/Verbalizations/Mental Status: []Client alert and oriented, casual dress, hygiene tended to. Eye contact fair. Motor activity appropriate. speech and tone WNL. Affect congruent, mood euthymic. Thoughts linear, logical, no signs of hallucinations or delusions. Client Response/Progress/Benefit: []Client was an engaged participant AEB client providing input throughout session and listened attentively to others. When discussing quote client provided an example of how our choices can change the course of our day/life. Client shared this morning she had to take her daughter to school but her car wouldn't start. Client reported two weeks ago she would have given up and went back to bed, however today she problem solved and took a different path. The group worked together to identify barriers that keep one from choosing a new and healthier path to mental wellness. Attentive during psychoeducation on the chapters of life. Benefited from increased awareness and education on barriers to choosing new wellness paths and chapters of life. Progress noted with client reporting improvement with managing her emotions and problem. Will continue IOP tx continue use of healthy coping skills, improve self-esteem and prevent decompensation. Narrative Note: []
--- NOTE | 2020-04-18 11:16 | BH.SGPN.GN ---
Behaviors/Verbalizations/Mental Status: [] Client alert and oriented, casually dressed and grooming appropriate. Eye contact good. Motor activity appropriate. Speech within normal limits Affect congruent though difficult to determine as client wearing a mask per COVID-19 protocol, mood dysthymic, anxious. Thoughts linear, logical, no signs of hallucinations or delusions. Client Response/Progress/Benefit: []Client engaged in session AEB listening to discussion and taking notes throughout. Client attentive during discussion reviewing ?Chapters of my Life? poem and did well to connect characteristics identified in each chapter to own life. Client indicated feeling she is currently between the 3rd and 4th chapters of her life. Expressed that she would like to move towards more consistently being in Chapter 4. Client did well to work with the group to brainstorm strategies to promote making progress towards their desired chapter. Identified that challenging negative thoughts to keep her perspective positive, as well as using opposite action will keep from remaining ?stuck? in current chapter. Appeared to benefit from increased insight regarding her current ?Chapter? in life and reviewing strategies for promoting continued progress and prevent regression. Progress in report of improved mood and increased boundary setting. Will continue IOP tx to prevent decompensation, maintain gains, and continue to promote healthy change behaviors. Narrative Note: []
--- NOTE | 2020-04-22 09:07 | BH.SGPN.GN ---
Behaviors/Verbalizations/Mental Status: []Client alert and oriented, neatly dressed and groomed- wearing jewelry. Eye contact good. Motor activity appropriate. Speech within normal limits. Affect unable to gather due to wearing a mask for COVID-19 protocol, mood discouraged, but not depressed. Thoughts linear, logical, no signs of hallucinations or delusions. Reviewed client?s symptom tracker, no risk for suicidal ideation, plan, or intent as of 04/22/20. Client Response/Progress/Benefit: []Client responded well to session, receptive to feedback from group and challenging perspective. Client reports feeling discouraged today because it's like I take two steps forward and three steps back. Client receptive to environmental designer and group feedback and was able to challenge her thinking. Client recognized that she has made progress and she deserves to give herself credit, even when client has setbacks. Client reported despite some negative thinking, client showed great strides this weekend towards progress. Client reported using opposite action by going out with two friends this weekend and by practicing thought stopping. Client stated when she recognizes she is thinking negatively, client will tell herself stop in her mind and try and reframe. The group normalized that challenging and reframing thinking takes a lot of time and effort. Appeared to benefit from combating distortions in the moment. Progress noted in client's report of no SI and reduced isolative behaviors. Will continue IOP tx as client continues to struggle with negative thinking that reinforces depression and anxiety. Narrative Note: []
--- NOTE | 2020-04-22 10:11 | BH.SGPN.GN ---
Behaviors/Verbalizations/Mental Status: []Client alert and oriented, casually dressed and appropriately groomed. Eye contact fair. Motor activity appropriate. Speech within normal limits. Affect could not be assessed due to pt wearing a mask as a requirement during COVID-19 pandemic. mood anxious. Thoughts linear, logical, no signs of hallucinations or delusions. Client Response/Progress/Benefit: []Client was an engaged participant AEB client providing input throughout discussion and appeared to listen attentively to others. Client connected with the topic of obstacles and solutions and worked with group to identify common obstacles that keep people stuck. Client shared at the beginning of IOP she felt depressed, hopeless, overwhelmed, and anxious. Pt reported her current reality as starting to make progress with changing her thinking and being able to manage stressors better. Client's realistic, desired reality is to feel stable, happy, and equipped to deal with life stressors. Identified barriers holding her back from desired reality to include: unrealistic expectations, poor boundaries, not knowing what to do with unplanned time, work, and ending relationship. Benefited from group as client was able to identify current and desired mental health state and increase awareness of how barriers can impact progress. Progress noted wiht pt able to note progress compared to when she started IOP. Will continue IOP to maintain gains, continue challenging distorted thoughts and prevent decompensation. Narrative Note: []
--- NOTE | 2020-04-22 11:10 | BH.SGPN.GN ---
Behaviors/Verbalizations/Mental Status: [] Client alert and oriented, casually dressed and appropriately groomed. Eye contact good. Motor activity appropriate. Speech within normal limits. Affect congruent, mood euthymic. Thoughts linear, logical, no signs of hallucinations or delusions. Client Response/Progress/Benefit: [] Client was an active participant in group discussion and attentive during the activity. Engaged during activity and provided ideas on how to cope with internal barriers that keep clients stuck from moving towards goals. Barriers identified by client were: unrealistic and poor boundaries, unplanned time, and lack of relationship. Group helped identify strategies to combat barriers identified by group members. Client reported they would like to work on overcoming the barrier of unplanned time. Client shared they will do this by creating a to-do list of 3-5 tasks as well as spending time making crafts with their support systems. Benefited from group by identifying obstacles and solutions to desired reality. Progress noted in client?s increased self-awareness of barriers and generalization of coping skills. Will continue IOP tx to further reduce anxiety and depression while increasing confidence in coping skills. Narrative Note: []
--- NOTE | 2020-04-23 09:04 | BH.SGPN.GN ---
Behaviors/Verbalizations/Mental Status: [] Client alert and oriented, neatly casually dressed and groomed. Eye contact good. Motor activity appropriate. Speech within normal limits. Affect unable to gather due to wearing a mask for COVID-19 protocol, mood euthymic, anxious. Thoughts linear, logical, no signs of hallucinations or delusions. Reviewed client?s symptom tracker, no risk for suicidal ideation, plan, or intent as of 04/23/20. Client Response/Progress/Benefit: [] Client responded well to session, providing supportive feedback and willing to process with the group. Client reports feeling anxious this morning as she has been struggling to manage thoughts associated with her upcoming return to work. Client reported she has been trying to get in the habit of planning things ahead of time, such as packing her daughter?s lunch the night before, so she is less stressed in the mornings. Client reports this will help to ease into her return to work without feeling highly anxious at the start of the work day. Client did well to identify that scheduling time for individual ?self-care? will be important moving forward, however appeared to struggle with identifying things she feels are responsibilities as self-care if she is doing them when her daughter is not home. Receptive of being challenged on this and was willing to identify painting with a friend as a ?non-responsibility? act she can do for self-care. Appeared to benefit from connecting with others and reflecting on application of coping skills. Will continue IOP tx to reinforce healthy coping skills, create a healthy return to work plan, and prevent decompensation. Narrative Note: []
--- NOTE | 2020-04-23 10:13 | BH.SGPN.GN ---
Behaviors/Verbalizations/Mental Status: []Client alert and oriented, casually dressed and appropriately groomed. Eye contact fair. Motor activity appropriate. Speech within normal limits. Affect could not be assessed due to pt wearing a mask as a requirement during COVID-19 pandemic. mood anxious. Thoughts linear, logical, no signs of hallucinations or delusions. Client Response/Progress/Benefit: []Client engaged throughout session AEB providing input to discussion and taking notes throughout. When processing quote pt stated Connected with discussion on how coping with external crises by using unhealthy coping skills could result in a personal crisis. Group reported that it is important to have awareness of warning signs which can prevent reaching crisis point. Group identified warning signs for crisis and client completed the personal warning signs worksheet. Pt identified personal crisis warning signs to include: sleeping more than usual, negative thinking, and unusual drop in functioning.?Benefited by increasing awareness of crisis and personal warning signs. Progress noted in client increased awareness and self-report of improved overall mood. Will continue IOP tx to continue use of healthy coping, reinforce skills to help with transition back to work and prevent decompensation. Narrative Note: []
--- NOTE | 2020-04-23 11:14 | BH.SGPN.GN ---
Behaviors/Verbalizations/Mental Status: []Client alert and oriented, casually dressed and groomed. Eye contact fair. Motor activity appropriate. Speech within normal limits. Affect unable to gather due to client wearing a mask for the pandemic. Mood anxious. Thoughts linear, logical, no signs of hallucinations or delusions. Client Response/Progress/Benefit: []Client responded well to session as evidenced by client listening attentively to others and providing strategies during discussion. Client identified her warning signs for crisis and gained further awareness of earliest warning signs. Client used the warning signs: negative thinking, sleeping more than usual, and lack of motivation to create her crisis plan. Client created a crisis action plan to help client better manage warning signs for crisis. Client?s plan included: picturing a stop sign in her head, asking herself ?would I tell this to someone I love,? DDD, opposite action, and think of satisfaction after accomplishing the task. Client reported creating a plan will help client be more prepared with healthy choices. Client appeared to benefit from creating a crisis action plan and increasing self-awareness. Progress noted in client?s continued report of no suicidal ideations and report of applying coping skills. Client to continue IOP tx to further reduce negative thoughts, improve daily functioning, and increase confidence. Narrative Note: []
--- NOTE | 2020-04-23 12:03 | PCM.BH.PN_ITS ---
Progress Note Progress Note: History of Present Illness/Interim History: [] Patient is a 39-year-old female with a history of depression and anxiety who is seen in follow-up at the [facility] behavioral health IOP program. I last saw the patient 2 weeks ago and at that time the patient discontinued Prozac and was started on Effexor XR. She is tolerating the Effexor XR well with no side effects. She feels that her mood is better now on the Effexor. She is still depressed but less depressed than before. Her anxiety is very improved and she says she is not jittery inside now. This has resolved. She no longer feels jittery and shaky all the time. Her sleep is averaging about 6 hours a night. She denies any fleeting suicidal ideation whatsoever now. She denies homicidal ideation, suicidal ideation or plan for suicide. She also denies hallucinations or delusions. She feels she is really benefiting from the IOP program. She is learning valuable skills that are helping her deal with stress. She denies any new stresses since last appointment. Current Psychiatric Medications: [] Prozac 60 mg (discontinued 2 weeks ago); Wellbutrin XL 150 mg p.o. every morning (x5 weeks now); Effexor XR 75 mg p.o. daily (x2 weeks now) Mental Status Examination: [] Patient is a 39-year-old female who is seen wearing a mask due to the pandemic. She is normal for stated age and has no psychomotor agitation or retardation. Her eye contact is good and speech is normal rate and rhythm with and fluent with no pressure. Mood is mildly depressed. Affect is less constricted than before approaching euthymic. Thought process is goal-directed and organized. Thought content: No evidence of suicidal or homicidal ideation. No evidence of hallucinations or delusions. Insight: Improving. Judgment: Intact. Impulsivity: Mild. Diagnoses: [] Major depressive disorder, recurrent, severe without psychosis; generalized anxiety disorder; hypothyroidism; primary support and work issues. [place]: []Major depressive disorder, recurrent, severe without psychosis; generalized anxiety disorder; hypothyroidism; primary support and work issues. Plan: [] Patient will continue the IOP program at [facility] as the support, structure, education, individual and group therapy will prevent worsening of the patient's symptoms which might require hospitalization. She felt safe during the interview and if at any time she does not feel safe she will let us know or go to the emergency room. The risks, options, and possible complications and side effects of medications were discussed with the patient and she understands and accepts these. She will stay on her current medication regimen and no changes were made in medication doses today. She will continue to follow-up with her outpatient providers. A prescription was sent in for Effexor XR 75 mg, 1 p.o. daily, #90 with 0 refills. Also prescription was sent in for Wellbutrin XL 150 mg, 1 p.o. every morning, #90 with 0 refills.
--- NOTE | 2020-04-23 14:36 | BH.MDN ---
Multi-Disciplinary Note - Note 45-min Individual Time Started:: 12:08 Date: 04/23/20 Purpose of session/treatment goals addressed:: Purpose of session was to assess pt's current symptoms and stressors. Also addressed relationship stressors, reviewed assertiveness, and challenge distorted thoughts. Eye Contact:: Fair Motor Activity:: Restless Appearance:: Casual Speech:: Appropriate Mood:: Depressed Affect:: Other - Affect could not be assessed due to pt wearing a mask as a requirement of COVID-19 pandemic. Thoughts:: Linear, No evidence of hallucinations/delusions noted Staff Interventions:: Therapist used open ended questions to elicit pt's current symptoms and stressors. Therapist processed stressor of current relationship. Reviewed healthy vs unhealthy realtionship characteristics. Discussed options for pt to address her relationship. Reinforced healthy coping and assertive communication. Role played assertive communication pt can use when talks with boyfriend. Provided support by using active listening and validating emotions. Client Response:: Pt stated she is continuing to struggle with her relationship. Pt reported she has a good time with her boyfriend on Tuesday but then was frustrated because he barely talked to her the next day. Pt reported she wanted to talk to him on Tuesday because I can't take this anymore (in regards to her relationship). Pt stated when she tried to see him on Tuesday he told her he had a crisis and told her to meet him at his house. Pt reported she didn't go because she didn't think it was a good time and he wouldn't tell her what was going on. Pt stated her boyfriend has not talked to her in 3 days. Pt reported she doesn't think the relationship is going to last because she feels hurt and disrespected by her boyfriend for being ignored. Pt stated if her boyfriend calls her she will be assertive by expressing her thoughts, feelings and options for their relationship. Pt practiced with therapist what she would say to her boyfriend. Pt Time Stopped:: 12:50
--- NOTE | 2020-04-24 09:04 | BH.SGPN.GN ---
Behaviors/Verbalizations/Mental Status: []Client alert and oriented, casually dressed and groomed. Eye contact good. Motor activity appropriate. Speech within normal limits. Affect unable to gather due to wearing a mask for COVID-19 protocol, mood dysthymic, anxious. Thoughts linear, logical, no signs of hallucinations or delusions. Reviewed client?s symptom tracker, no risk for suicidal ideation, plan, or intent as of 04/24/20. Client Response/Progress/Benefit: []Client responded well to session, providing support and was willing to process with the group. Client reports feeling hurt this morning as she has been dealing with relationship issues; however, did not share further. Expressed that she is feeling positive with the progress towards mental health goals she has been able to make over the past few days. Discussed successfully taking time to practice self-care by working in the yard last night and was able to additionally stop herself when she was tired rather than burning herself out. Expressed that this has been something she?s struggled with in the past. Additional positive noted as taking time to use mindfulness and grounding skills by sitting outside and listening to nature. Pt shared a current stressor as discrepancies in her return to work [employer] but did well to identify ways she can cope with the situation by challenging her thoughts and focusing on what?s in her control. Progress noted in client self-report of improved mood and ability to challenge thought distortions. Appeared to benefit from connecting with others and reflecting on application of coping skills. Will continue IOP tx to reinforce healthy coping skills, continue to depressive sx, and prevent decompensation. Narrative Note: []
--- NOTE | 2020-04-24 11:00 | BH.SGPN.GN ---
Behaviors/Verbalizations/Mental Status: []Client alert and oriented, casually dressed and appropriately groomed. Eye contact good. Motor activity appropriate. Speech within normal limits. Affect unable to gather due to wearing a mask during the pandemic, mood euthymic, Thoughts linear, logical, no signs of hallucinations or delusions. Client Response/Progress/Benefit: []Client responded well to the session, attentive and contributing to discussion. Group discussed benefits of healthy communication on mental health which included: getting help, better relationships, less misinterpretations, and improved emotional regulation. Group additionally discussed potential barriers to communication including: shutting down, tone of voice, assumptions, yelling, passive aggressive behaviors, and poor emotional regulation. Attentive during psychoeducation on the four communication styles. Client self-reports identifying most with the passive aggressive communication style. Client shared she tends to be more aggressive over phone conversations rather than in person with her romantic relationships. Client expressed passive aggressive communication leads to guilt which reinforces negative thinking. Client desires to to be more assertive with her communication. Progress noted in increased insight into personal communication styles and barriers. Client will continue in IOP tx further reduce intensity of mental health sx and to improve daily functioning. Narrative Note: []
--- NOTE | 2020-04-24 11:15 | BH.SGPN.GN ---
Behaviors/Verbalizations/Mental Status: []Client alert and oriented, neatly dressed and groomed. Eye contact fair. Motor activity appropriate. Speech within normal limits. Affect unable to gather due to wearing a mask for COVID-19 protocol, mood dysthymic and anxious. Thoughts linear, logical, no signs of hallucinations or delusions. Client Response/Progress/Benefit: []Client responded well to session AEB client listening attentively to others and providing input at times during discussion. Engaged in activity and processing importance of being clear and specific when communicating with others. Attentive during psychoeducation on reviewing assertiveness strategies to improve communication, and selected a assertiveness skill to practice. Client stated she plans to work on using I statements. Client stated struggles with using I statements instead using more aggressive or passive-aggressive language. Client expressed awareness this negatively impacts her relationships. Client seemed to benefit from increasing awareness of healthy strategies to improve communication. Progress noted with client continuing to report no suicidal ideation and improved mood. Will continue IOP tx to promote the use of healthy coping skills, promote transition back to reduced work schedule next week and prevent decompensation. Narrative Note: []
--- NOTE | 2020-04-25 09:00 | BH.SGPN.GN ---
Behaviors/Verbalizations/Mental Status: [] Eye contact is good. Motor activity is appropriate. Appearance is neat. Speech is Appropriate. Mood is anxious. Affect is congruent. Thoughts are linear and logical. No evidence of psychosis. Reviewed daily check in no reports of suicidal ideation. Client Response/Progress/Benefit: [] Pt was an active participant in group discussion. Daily symptom tracker notes 3/5 for anxiety and 1/5 for agitation and hopelessness. Emotion for today is anxious. Reports that she spoke with supervisor beet end today who reports that pt should be ready to be bombarded with questions about where she has been when she returns to work. She had developed a response however is worried that it will not be enough. Group provided some feedback and suggestions. Group also pointed out that she is in control of what boundaries she sets with others. Identified that she does not owe anyone an explanation. Group discussion regarding stigma and boundary setting which was beneficial to pt. Will continue in IOP to help maintain gains and provided support as she transitions back to work. Narrative Note: []
--- NOTE | 2020-04-25 10:02 | BH.SGPN.GN ---
Behaviors/Verbalizations/Mental Status: []Client alert and oriented, neatly dressed and groomed. Eye contact good. Motor activity appropriate. Speech within normal limits. Affect unable to gather due to wearing a mask for COVID-19 protocol, mood euthymic and anxious. Thoughts linear, logical, no signs of hallucinations or delusions Client Response/Progress/Benefit: []Client was an active participant in group discussion and activity, providing input throughout. Client participated in the discussion of striving for progress over perfection. Client shared true progress is ?ups and downs.? Brainstormed with the group the benefits of goal setting which included: increased motivation, sense of accomplishment, increased confidence, growth, and improved mental health. Client helped group discussed the barriers that keep people from either setting goals or following through with goals. Client gave examples of unrealistic expectations, feeling overwhelmed, and negative thinking as barriers to following through with goals. Able to provide feedback during psychoeducation on SMART goals. Engaged in activity and did well to provide ideas and listen to peers. Client appeared to benefit from learning the mental health benefits of setting goals that are SMART. Will continue IOP tx to promote gains and further reduce intensity of mental health symptoms. Narrative Note: []
--- NOTE | 2020-04-25 11:00 | BH.SGPN.GN ---
Behaviors/Verbalizations/Mental Status: []Client alert and oriented, neatly dressed and groomed. Eye contact good. Motor activity appropriate. Speech within normal limits. Affect unable to gather due to wearing a mask for COVID-19 protocol, mood euthymic. Thoughts linear, logical, no signs of hallucinations or delusions Client Response/Progress/Benefit: []Client was engaged during discussion, did well to develop a personal SMART goal. Client chose the goal: to practice setting personal boundaries at work by sharing the same message with her co-workers within the next two weeks. When asked why this goal was important and beneficial to client's mental health, client stated it will protect her privacy and decrease anxiety. Identified the following barriers to completing this goal which included: feeling guilty and co-workers not respecting client?s boundary. Identified solutions to barriers which included: challenge her thoughts or stop the thoughts, practice consistency, and reminding herself she does not have to over share. Benefited from this group by developing a short-term SMART goal related to mental health. Will continue IOP tx to further improve mood stability, increase positive self-talk, and improve daily functioning. Narrative Note: []
--- NOTE | 2020-04-28 09:05 | BH.SGPN.GN ---
Behaviors/Verbalizations/Mental Status: []Client alert and oriented, casual dress, hygiene tended to. Eye contact fair. Motor activity appropriate. Speech within normal limits. Affect congruent, mood euthymic. Thoughts linear, logical, no signs of hallucinations or delusions. Reviewed client?s symptom tracker, pt denies current suicidal thoughts or intention to date. Client Response/Progress/Benefit: []Pt responded well to session AEB pt listening attentively to others and sharing thoughts and feelings. Pt reported her she was able to accomplish her game plan to text back all her friends and support that she has been ignoring since being off work. Pt stated it wasn't as bad as she thought to text back her friends. Pt stated she utilized opposite action to keep her from napping which went well. Pt reported she went walking with her daughter to spend quality time with her. Pt stated she is currently stressed about going back to work. Seemed to benefit from expressing thoughts and feelings and getting support from others. Pt to continue IOP level of care to continue using healthy coping skills, successfully transition back to work and prevent decompensation. Narrative Note: []
--- NOTE | 2020-04-28 10:14 | BH.SGPN.GN ---
Behaviors/Verbalizations/Mental Status: []Client alert and oriented, neatly dressed and groomed. Eye contact good. Motor activity appropriate. Speech within normal limits. Affect unable to gather due to wearing a mask for COVID-19 protocol, mood anxious and dysthymic. Thoughts linear, logical, no signs of hallucinations or delusions. Client Response/Progress/Benefit: []Client was attentive, but did not provide a lot of input during discussion. Client responded to the quote and shared ?it matters how we respond to the forces.? Group discussed and then identified forces that can impact growth and overall mental health. Client listened as peers identified and defined internal and external forces in mental health and their role in growth. Group gave examples of toxic people, adverse experiences, coping skills, and thought patterns during group psychoeducation on examples and impact of negative/positive internal and external forces. Progress noted in client?s self-report of improved functioning and less isolation. Will continue in IOP to promote gains, further decrease negative thinking, and improve self-confidence. Narrative Note: []
--- NOTE | 2020-04-28 11:15 | BH.SGPN.GN ---
Behaviors/Verbalizations/Mental Status: []Eye contact is good. Motor activity is appropriate. Appearance is casual. Speech is Appropriate, less input than in prior groups. Mood is anxious, dysthymic. Affect unable to assess as client wearing a mask per COVID-19 protocol. Thoughts are linear and logical. No evidence of psychosis. Client Response/Progress/Benefit: [] Pt receptive of session, actively engaged in activity AEB communicating with fellow participants and being receptive of ideas provided by group. Worked with group to process the challenge activity and did well to relate this back to daily life. Pt identified personal negative forces impacting mental health progress to include: negative thoughts, her work environment, guilt, procrastination, and family. Group then worked together to identify common positive forces in activity and life which help us grow. Pt identified personal positive forces to include: challenging negative thoughts, challenging her negative attitude, reaching out to friends, and her daughter. Pt was attentive during psychoeducation and appeared to benefit from increased insight on the impact of negative and positive forces on mental wellness. Identified wanting to reduce her negative perspective as a force in her life by focusing on the positives and challenging herself to more actively focus on the present rather than the past. Progress limited as pt appeared to be struggling with negative thoughts and external forces impacting current mood. Pt recommended continued IOP tx to improve emotion regulation, improve healthy boundaries, and continue to work on challenging thought distortions. Narrative Note: []
--- NOTE | 2020-04-30 09:06 | BH.SGPN.GN ---
Behaviors/Verbalizations/Mental Status: []Client alert and oriented, casually dressed and groomed. Eye contact good. Motor activity appropriate. Speech within normal limits. Affect unable to gather due to wearing a mask for COVID-19 protocol, mood anxious and dysthymic. Thoughts linear, logical, no signs of hallucinations or delusions, at times appearing distracted by own thoughts. Reviewed client?s symptom tracker, no risk for suicidal ideation, plan, or intent as of 04/30/20. Client Response/Progress/Benefit: []Client responded well to session, receptive to feedback from peers and provided encouragement to new participants. Client reports feeling frustrated this morning as she has been working to ?let go of the past? but continues to struggle with ruminating on a need for closure. Client receptive of suggestions for finding inner peace and closure provided by a fellow participant. Went on to share that although she longs for closure, she has been doing well to remain more present and actively engaged in the moment when interacting with her daughter. Did well to identify this as a personal win and expressed using positive self-talk as well as various grounding techniques to continue to promote mindfulness. Additional positive noted as successfully making it through he first day back at work without becoming overwhelmed. Progress noted in self-report of improved thought challenging and active skill application. Appeared to benefit from connecting with peers and identifying personal wins. Will continue IOP tx to prevent decompensation, continue to promote mood stability, and improve daily functioning. Narrative Note: []
--- NOTE | 2020-04-30 10:10 | BH.SGPN.GN ---
Behaviors/Verbalizations/Mental Status: []Client alert and oriented, neatly dressed and groomed. Eye contact good. Motor activity appropriate. Speech within normal limits. Affect unable to gather due to wearing a mask for COVID-19 protocol, mood anxious. Thoughts linear, logical, no signs of hallucinations or delusions. Client Response/Progress/Benefit: []Client attentive and providing input to discussion. Contributed during discussion on the quote connecting with impact thoughts can have on mood and behavior. Connected with the discussion about how distorted thought patterns can reinforce mental health symptoms and negatively impact self-esteem and personal relationships. Client attentive throughout the discussion on different types of thought distortions and noted that she connected with all or nothing, catastrophizing and personalization distortions. Client gave an example of a recent distortion which was ?I have to do it all or none of it?. Pt able to recognize this all or nothing thought increases anxiety and can result in avoidance or quitting tasks. Appeared to benefit from increasing awareness of cognitive distortions and how they can impact emotions and behaviors. Client showing progress with increasing her engagement in group. Will continue IOP tx to prevent decompensation, continue to challenge negative thoughts, and helping client transition back to work. Narrative Note: []
--- NOTE | 2020-04-30 11:12 | BH.SGPN.GN ---
Behaviors/Verbalizations/Mental Status: []Client alert and oriented, casually dressed. Eye contact good. Motor activity appropriate. Speech within normal limits. Affect congruent, mood euthymic. Thoughts linear, logical, no signs of hallucinations or delusions. Client Response/Progress/Benefit: []Client was an active participant AEB client providing input throughout session, taking notes, and completing worksheet. Client attentive during psychoeducation and additional discussion on cognitive distortions. Client engaged in discussion about how to reframe distorted thoughts using T.H.I.N.K into more realistic, rational statements. Client worked with her small group to challenge the distortion ?other people have it worse than me, my problems aren?t a big deal.? The group identified distortions of disqualifying the positives, minimizing, and black and white thinking in this thought. Group reframed the thought to ?everyone has problems, no one is better or worse than anyone else.? Client filled out her GAPs worksheet with the gameplan to practice looking at the cognitive distortion ?red flags? to help client catch distortions early. Client seemed to benefit from practicing identifying and reframing distorted thoughts. Client to continue IOP level of care to increase healthy coping, increase self-confidence, and further improve mood stability. Narrative Note: []
--- NOTE | 2020-05-02 09:00 | BH.SGPN.GN ---
Behaviors/Verbalizations/Mental Status: [] Eye contact is good. Motor activity is appropriate. Appearance is casual. Speech is Appropriate. Mood is euthymic. Affect is full. Thoughts are linear and logical. No evidence of psychosis. Reviewed daily check in sheet and no reports of suicidal ideations or intent. Client Response/Progress/Benefit: [] Pt was an active participant in group discussions. Attentive. Provided appropriate feedback. Daily symptom tracker notes 08/19 for anxiety and panic. Emotion for today is content. Pt shared that she has been working on catching her negative thoughts and distortions as well as utilizing thought-stopping skills when she begins to use Red flag statements. Also reports that she is beginning to settle back into work. Has identified that it would be beneficial for her to set up more concrete work boundaries so she doesn't let work run her life. Progress noted per pt report. Will continue in IOP to maintain gains and transition back to full-time work. Benefited from group support, encouragement, and feedback. Narrative Note: []
--- NOTE | 2020-05-02 11:06 | BH.SGPN.GN ---
Behaviors/Verbalizations/Mental Status: []Client alert and oriented, neatly dressed and groomed. Eye contact good. Motor activity appropriate. Speech within normal limits. Affect unable to gather due to wearing a mask for COVID-19 protocol, mood anxious and euthymic. Thoughts linear, logical, no signs of hallucinations or delusions. Client Response/Progress/Benefit: []Client was an active participant in group discussion and provided insight on group topic. Attentive during psychoeducation on mindfulness coping skills and their impact on her mental health wellness. Client shared mindfulness helps a person stay in the moment and shared ?anxiety makes you live in the future and depression makes you live in the past.? Client was able to identify self-soothing and mind-based coping skills she wants to incorporate into her current coping skills. The skills Client chose to practice were writing out positive affirmations and listening to soothing sounds. Progress noted as client has returned to work part-time and reports improved mood stability. Receptive to incorporating new skills. Will continue in IOP tx as client can benefit from reinforcing healthy coping skills and ongoing thought challenging. Narrative Note: []
--- NOTE | 2020-05-02 13:27 | BH.MDN_ITS ---
Multi-Disciplinary Note - Note 45-min Individual Time Started:: 10:08 Date: 05/02/20 Purpose of session/treatment goals addressed:: Purpose of session was to assess pt's current symptoms and stressors. Other topics included: processing interpersonal stressor, identifying skills used and discussing aftercare. Eye Contact:: Good Motor Activity:: Restless Appearance:: Casual Speech:: Appropriate Mood:: Anxious, Other - sad and tearful at times when talking about her relationship. Affect:: Other - affect could not be assessed due to pt wearing a mask as a requiremnt during COVID-19 pandemic. Thoughts:: Linear, Logical, No evidence of hallucinations/delusions noted Staff Interventions:: Therapist used open ended questions to elicit pt's current symptoms and stressors. Therapist processed interpersonal stressor. Therapist validated and normalized pt's thoughts and emotions. Therapist assisted pt with identifying postive skills used while having a difficult conversation with her ex-boyfriend. Therapist discussed tentative plan for aftercare once discharges from [facility] next week. Client Response:: Pt reported she did talk on the phone with her boyfriend about what she has been feeling in the last two weeks since he hasn't talked to her. Pt stated she asked him directly for answers as to why he has shut her out. Pt reported he had expressed how he is struggling with his own mental health and life stressors. pt stated she feels relieved to have expressed how she is feeling to him. Pt reported she ended the relationship because thought it is what is best for both of them at this time. pt stated she still feels sad but knows that she can't handle what has been going on within the relationship for the last 6 weeks. Pt reported she is glad the rollar coaster of emotions with her ex is over and she knows it's time to move on. Pt was seeking reassurance at times during session to see if she did the right thing. Responded well when therapist put the question back to her. Pt identified she did well with trying to be assertive throughout her conversation with her ex. Pt stated she also did well with expressing her true thoughts and feelings versus keeping them in. Pt stated she has been able to manage her emotions while at work. Pt stated she is noticing that things are going to remain the same at work which solidifies her need to find a position that better suits her. Pt stated for aftercare she will follow up with her established outpatient therapist, go to her PCP for medication and would like to be in the [facility] Aftercare group. pt stated she would need to use [place] time in order to make the aftercare group. Risks/Concerns:: Denies current thoughts of suicide, plan or intention to date. Progress Toward Goals/Plan:: Progress noted with pt showing assertive communication, facing her anxieties versus avoiding, and using calming skills to help her manage symptoms in the moment. Pt reports not laying in bed most of the day, improved mood, and better emotional regulation. Pt's interpersonal stressor with her now ex-boyfriend has negatively impacted her moods. Pt seems to be at an acceptance stage that her relationship is over which could help pt focus on moving forward. Pt is to continue IOP to continue use of healthy coping skills, assist pt with transitioning back to work, and prevent decompensation. Time Stopped:: 10:48
--- NOTE | 2020-05-05 09:05 | BH.SGPN.GN ---
Behaviors/Verbalizations/Mental Status: []Client alert and oriented, casually dressed. Eye contact good. Motor activity appropriate. Speech within normal limits. Affect unable to gather due to wearing a mask for COVID-19 protocol, mood euthymic. Thoughts linear, logical, no signs of hallucinations or delusions. Reviewed client?s symptom tracker, no risk for suicidal ideation, plan, or intent as of 05/05/20. Client Response/Progress/Benefit: []Client responded well to session, attentive and engaged throughout session. Client?s goal was to explore affirmations and she researched them but stated ?How do I do them, if I do not believe them?? Client gained insight from other group members and client reports that she plans to practice more affirmations that directly benefit her. Client engaged in self-care over the weekend by keeping herself productive, spending time with support, and taking many walks. Client identified her stressor as ?going back to work full-time next week.? Client stated her emotion as ?calm? this morning. Client benefited from group as she gained more confidence and self-awareness as she created more affirmations for herself. Client will continue IOP and discuss at the end of the week. Client can benefit from two more IOP days to reinforce healthy coping skills and establish aftercare. Narrative Note: []
--- NOTE | 2020-05-05 10:24 | BH.SGPN.GN ---
Behaviors/Verbalizations/Mental Status: []Client alert and oriented, casually dressed and groomed. Eye contact good. Motor activity appropriate. Speech within normal limits. Affect unable to gather due to wearing a mask due to pandemic, mood euthymic. Thoughts linear, logical, no signs of hallucinations or delusions. Client Response/Progress/Benefit: []Client passive participant AEB client providing limited input during group discussions, however did appear to listen attentively to peers and take notes throughout. Group identified the benefits of having a support system such as: accountability, increased self-esteem, gain perspective, and not feeling alone. Client discussed different types of support, and client noted it is important to set boundaries and verbalize needs when building supports.Group also discussed the barriers to accessing support and client noted lack of awareness. Seemed to benefit from increased awareness of different supports available and identifying benefits of social support. Progress noted in client?s reduced depressive symptoms and return to work part-time. Will continue IOP tx to promote mood stability. Narrative Note: []
--- NOTE | 2020-05-05 11:20 | BH.SGPN.GN ---
Behaviors/Verbalizations/Mental Status: []Client alert and oriented, casually dressed and appropriately groomed. Eye contact good. Motor activity appropriate. Speech within normal limits. Affect could not be assessed due to pt wearing a mask as a requirement of the COVID-19 pandemic. mood anxious. Thoughts linear, logical, no signs of hallucinations or delusions. Client Response/Progress/Benefit: []Client an active participant AEB contributing to discussion and taking notes throughout. Client participated in group discussion about the different types of support and benefits different support can provide. Client stated she is good at getting informational support by reaching out for others for additional resources for practical problems. Pt identified she would like to increase social support because she believes she is distant and isolated from others. Client reported one step to increase social support is to research different group activities she could join to increase connection with others. Client seemed to benefit from identifying a type of support she would like to improve upon and brainstorming small steps to take in order to successfully do so. Progress noted as evidenced by client's report of improved mood and decreased use of unhealthy coping. Client to continue IOP tx to maintain gains, continue use of healthy coping skills, and prevent decompensation. Narrative Note: []
--- NOTE | 2020-05-07 09:05 | BH.SGPN.GN ---
Behaviors/Verbalizations/Mental Status: []Client alert and oriented, casually dressed and appropriately groomed. Eye contact good. Motor activity appropriate. speech within normal limits. Affect could not be assessed due to pt wearing a mask as a requirement of the COVID-19 pandemic. mood euthymic. Thoughts linear, logical, no signs of hallucinations or delusions. Client Response/Progress/Benefit: []Pt responded well to session AEB pt listening attentively to peers and openly sharing thoughts and feelings. Patient reported her game plan from last group session was to research different group activities that she could join to increase her social support. Patient stated she has found several art classes that she is interested in joining. Patient reported she will have to move some things around so that she will be able to attend 1 of the classes. Patient reported she is going to spend time with friends this evening to increase her social support. 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 Patient identified feeling calm this morning. Progress noted with patient following through with goal and communicating thoughts and feelings. Patient to continue IOP level of care to continue use of healthy coping skills, successfully transition back to work, and prevent decompensation. Narrative Note: []
--- NOTE | 2020-05-07 10:15 | BH.SGPN.GN ---
Behaviors/Verbalizations/Mental Status: [] Eye contact is good. Motor activity is appropriate. Appearance is neat. Speech is Appropriate. Mood is euthymic. Affect is full. Thoughts are linear and logical. No evidence of psychosis. Client Response/Progress/Benefit: [] Client responded well to session, engaged and participating in group discussion. Client connected with the quote and discussed the difference between ruminating and reflecting for growth with group members. Client helped group identify the importance of change. Group also identified barriers keeping clients from changing. Participated in the discussion and psychoeducation on the different zones of change. Client described her comfort zone as ?isolation, no challenges, and missed opportunities? which keep her from growing as a person and reaching out to support. Appeared to benefit from gaining awareness of the benefits of change as well as the different zones of change. Will continue in IOP to prevent decompensation, increase healthy communication and skills, and stabilize mood. Narrative Note: []
--- NOTE | 2020-05-07 16:58 | BH.MDN ---
Multi-Disciplinary Note - Note 45-min Individual Time Started:: 11:40 Date: 05/07/20 Purpose of session/treatment goals addressed:: Purpose of session was to assess pt's current symptoms and stressors. Other topics included challenging distorted thought patterns and identifying aftercare plan once discharges from [facility] this Tuesday. Eye Contact:: Fair Motor Activity:: Appropriate Appearance:: Casual Speech:: Appropriate Mood:: Euthymic, Anxious Affect:: Congruent Thoughts:: Linear, Logical, No evidence of hallucinations/delusions noted Staff Interventions:: Therapist utilized open ended questions to elicit pt's current symptoms and stressors. Therapist assited pt with recognizing and challenge distorted thoughts pt was having in session about not being a good girlfriend. Therapist attempted to help pt gain awareness of how her negative self-talk can increase depressive symptoms. Therpaist collaborated with pt to identify what topics pt would like to foucs on when returns to therapy with outpatient therapist, Brandie Villaseñor. Client Response:: Pt reported on a positive note I haven't cried in two days over my ex-boyfriend. Pt stated she has observed her mood is improving since trying to accep the ending of her relationship. Pt made comments about I really wasn't a good girlfriend. when she was reflecting back on her relationship. Pt receptive to therapist helping pt reframe her negative self-talk. Pt stated she does want to move forward so plans to focus on increasing her social support. Pt reported she has two good friends but wants to widen her support network. Pt stated she struggles with sharing anything beyond superficial things to other people. Pt recognizes this makes it difficult to have meaningful relationships. Pt stated when she returns to therapy with outpatient therapist she wants to work on: self-esteem, increasing independence, improving view of self and decrease her co-dependency. Risks/Concerns:: Pt denies suicidal ideation, plan and intention. future focused. Progress Toward Goals/Plan:: Progress noted with pt reporting improved mood, increase in awareness, and desire to continue to make improvements. Pt continues to struggle with negative self-talk and poor body image. Pt is to continue [facility] level of care to maintain gains, successfully transition back to work, and prevent decompensation. Plan is for patient to discharge from [facility] this Tuesday. Time Stopped:: 12:20
--- NOTE | 2020-05-09 09:05 | BH.SGPN.GN ---
Behaviors/Verbalizations/Mental Status: []Client alert and oriented, neatly dressed and groomed. Eye contact good. Motor activity appropriate. Speech within normal limits. Affect unable to gather due to wearing a mask for COVID-19 protocol, mood euthymic. Thoughts linear, logical, no signs of hallucinations or delusions. Reviewed client?s symptom tracker, no risk for suicidal ideation, plan, or intent as of 05/09/20. Client Response/Progress/Benefit: []Client responded well to session, attentive and providing words of encouragement to peers. Client reports feeling ?calm? this morning. Client?s last day of IOP tx and client reflected on her growth since starting the program. Client shared ?being here has helped me be more engaged with my daughter and it doesn?t feel forced anymore.? Client also reported she isolates a lot less and can stop her negative thoughts more easily. Client shared she frequently uses opposite action, thought challenging, and self-care. Client told peers ?you have to fake it til you make it, but it works.? Client reported she also made a bucket list of fun activities to help client get out of her comfort zone and be more social. Client shared this is what she wants to work on moving forward. Appeared to benefit from reflecting on gains made in IOP. Will discharge today as client has made significant progress and no longer meets criteria for IOP level of care. Narrative Note: []
--- NOTE | 2020-05-09 10:13 | BH.SGPN.GN ---
Behaviors/Verbalizations/Mental Status: []Client alert and oriented, casual dress, hygiene tended to. Eye contact good. Motor activity appropriate. Speech within normal limits, quiet. Affect could not be assessed due to pt wearing a face mask as precaution against coronavirus. Mood euthymic and anxious. Thoughts linear, logical, no signs of hallucinations or delusions. Client Response/Progress/Benefit: [] Pt remained an active participant AEB providing input and taking notes throughout. Appeared to connect with topic of healthy boundaries and identified that for her a barrier to establishing healthy boundaries has been fear of disappointing others. Pt additionally discussed struggling to know when her boundaries have been violated in the past. Worked with group to identify potential benefits of healthy boundaries which included: increased sense of respect, increased self-confidence, acting in line with own values, and improved ability to advocate for oneself. Pt participated in discussion reviewing various types of boundaries and the importance of each areas in maintaining positive mental health. Appeared to benefit from increased awareness of benefits and costs associated with healthy and unhealthy boundaries, as well as gaining insight into her own personal boundaries. Progress noted in pt increased ability to follow through with healthy personal boundaries. Given progress made, pt will discharge from IOP program and is scheduled to begin Aftercare program to maintain gains, continue to promote healthy change behaviors, and prevent decompensation. Narrative Note: []
== END 2020-05-09 14:00 | disposition home or self-care (01) ==
LOC: BHIOP 09:00
PROVIDERS: PCP Family Medicine; Referring Provider Psychiatry & Neurology Psychiatry; Visit Provider Psychiatry & Neurology Psychiatry
DX: F33.2 Major depressive disorder, recurrent severe without psychotic features (principal); F41.8 Other specified anxiety disorders; E03.9 Hypothyroidism, unspecified; Z79.899 Other long term (current) drug therapy
CPT/HCPCS: H0035; 90834; 90853

== ENCOUNTER 2020-05-15 14:02 | Outpatient (RCR) | payer OTHER, SELFPAY ==
[2020-03-10 09:21] VITALS: BMI 25.0
--- NOTE | 2020-05-15 14:05 | BH.SGPN.GN ---
Behaviors/Verbalizations/Mental Status: [] Client alert and oriented, casually dressed and groomed. Eye contact good. Motor activity appropriate. Speech within normal limits. Affect unable to assess as client wearing a mask per COVID-19 protocol, mood euthymic and anxious. Thoughts linear, logical, no signs of hallucinations or delusions. Client Response/Progress/Benefit: []Pt first day in aftercare program. She responded well to session, provided input and listened attentively to peers. Reported feeling ?tense? today and attributed this to ongoing struggles with adjusting to her recent return to work. Discussed difficulties in adjusting to not being able to go for her daily walks now that she does not get home until after dark. Pt receptive of and appeared to benefit from support provided by group. Reports plans to find creative alternatives for self-care as she adjusts to her new schedule. Pt engaged in discussion on self-advocacy. Worked with group to identify the benefits of self-advocacy, as well as common barriers. Identified a personal barrier as struggling with believing she deserves to advocate for her own needs. Did well to work with group to identify strategies to increase ability to advocate for oneself. Pt reported she wants to continue to work on regularly reminding herself that she has the right to ask for what she needs as well as practice implementing consistent boundaries. Pt seemed to benefit from reviewing areas of progress and skill application, as well as learning about how to increase self-advocacy. Pt to continue aftercare program to promote ongoing skill application, continue to maintain stability, and prevent decompensation. Narrative Note: []
--- NOTE | 2020-05-22 10:57 | BH.MTP_ITS ---
Master Treatment Plan - Patient Information Program Physician:: Dr. Zaman Primary Therapist:: Rosalba Wood [facility] - Psychiatric Diagnoses Psychiatric Diagnoses:: Major depressive disorder, recurrent, moderate without psychosis; generalized anxiety disorder; hypothyroidism; primary support and work issues. Diagnosis Code(s):: F33.1 - Estimated LOS Estimated LOS (in weeks):: 12 Problem/Goal #1 - Problem/Goal #1 Stated Goal:: client will maintain or see a reduction in symptoms AEB client score on the DSM 5 cross-cutting measure and improve client's daily functioning. - Objectives Objective #1 Stated Objective: Client will continue to consistently apply healthy coping skills to maintain progress made in IOP tx. Interventions: Through group therapy, client will review warning signs and triggers as well as healthy coping skills learned in IOP tx to successfully maintain gains while transitioning into outpatient therapy. Discharge Criteria: Client will have accomplished this goal when client's score on the DSM-5 cross-cutting measure has either maintained or reduced over a 12 week period. Target Date: 08/07/20 Review Date: 06/12/20 Objective #2 Stated Objective: Client will learn and utilize 2-3 maintenance strategies to prevent decompensation. Interventions: Through group therapy, client will be provided with education on healthy maintenance behaviors, relapse prevention techniques, and healthy coping strategies. Discharge Criteria: Client will have accomplished this goal when can report using at least 2 maintenance skills to prevent decompensation. Target Date: 08/07/20 Review Date: 06/12/20
--- NOTE | 2020-05-29 14:00 | BH.SGPN.GN ---
Behaviors/Verbalizations/Mental Status: []Client alert and oriented, neatly dressed and groomed. Eye contact good. Motor activity appropriate. Speech within normal limits. Affect unable to gather due to wearing a mask for COVID-19 protocol, mood dysthymic. Thoughts linear, logical, no signs of hallucinations or delusions. Client Response/Progress/Benefit: []Client responded well to session, actively contributing. Client stated she feels ?sad? today but overall client has been doing well with self-care and following through with goals. Client has been using opposite action, journaling, spending time with her daughter, and thought challenging to cope with symptoms and stressors this week. Client contributed to the discussion on gratitude and its benefits. Client attentive during discussion of internal vs. external gratitude. Client receptive to participating in the group seven-day gratitude challenge. Client selected one gratitude reflection per day and stated she will implement this through writing. Receptive to discussion on intentionality and self-accountability. Client shared she will hold herself accountable by writing her daily gratitude each night after client puts her daughter to bed. Appeared to benefit from connecting with peers and practicing gratitude. Client will continue IOP aftercare to promote mood stability and reinforce healthy coping skills. Narrative Note: []
--- NOTE | 2020-06-12 14:05 | BH.SGPN.GN ---
Behaviors/Verbalizations/Mental Status: [] Client alert and oriented, casual dress, hygiene tended to. Eye contact good. Motor activity appropriate. Speech within normal limits. Affect congruent, mood euthymic. Thoughts linear, logical, no signs of hallucinations or delusions. Client Response/Progress/Benefit: []Pt attentive and provided input throughout. Noted feeling ?happy? today as she has continued to make strides in setting healthy boundaries and reminding herself ?I deserve to take care of myself?. Shared feeling empowered and more confident as a result. Expressed using thought challenging, positive self-talk, and opposite action to continue to make gains. Noted reduced guilt as well given consistent skill application. Pt engaged in group discussion reviewing the mental health benefits of establishing a consistent daily routine. Group identified benefits to include: improving sense of purpose, increasing self-confidence, reducing stress, and improving follow through. Connected with discussion on common barriers impacting routine follow-through and engaged in brainstorming strategies to overcome identified barriers. Shared that using opposite action helps to keep her on track with her routine. Pt identified wanting to improve her current routine by setting out her daughter?s things for the next day ahead of time. Shared this will help to support her mental health by reducing stressors in the morning and improving ability to start the day positive. Pt seemed to benefit from support provided by peers and reviewing the mental health benefits of routine. Progress noted in pt self-reports of improved sx management and more consistent application of self-love via boundary setting. Pt to continue aftercare group to improve consistent use of healthy coping, maintain gains, and prevent decompensation. Narrative Note: []
--- NOTE | 2020-06-27 11:18 | BH.MTP ---
Master Treatment Plan - Patient Information Program Physician:: Dr. Hamida Recinos Primary Therapist:: Rosalba Wood - Psychiatric Diagnoses Psychiatric Diagnoses:: Major depressive disorder, recurrent, severe without psychosis; generalized anxiety disorder; hypothyroidism; primary support and work issues. Diagnosis Code(s):: F 33.2 - Estimated LOS Estimated LOS (in weeks):: 12 Problem/Goal #1 - Problem/Goal #1 Stated Goal:: Client will maintain or see a reduction in symptoms AEB client score on the DSM 5 cross-cutting measure and improve client's daily functioning. - Objectives Objective #1 Stated Objective: Client will continue to consistently apply healthy coping skills to maintain progress made in IOP tx. Interventions: Through group therapy, client will review warning signs and triggers as well as healthy coping skills learned in IOP tx to successfully maintain gains while transitioning into outpatient therapy. Discharge Criteria: Client will have accomplished this goal when client's score on the DSM-5 cross-cutting measure has either maintained or reduced over a 12 week period. Target Date: 08/07/20 Review Date: 06/12/20 Objective #2 Stated Objective: Client will learn and utilize 2-3 maintenance strategies to prevent decompensation. Interventions: Through group therapy, client will be provided with education on healthy maintenance behaviors, relapse prevention techniques, and healthy coping strategies. Discharge Criteria: Client will have accomplished this goal when can report using at least 2 maintenance skills to prevent decompensation. Target Date: 08/07/20 Review Date: 06/12/20
== END 2020-06-14 23:59 ==
LOC: BHOG 14:02
PROVIDERS: PCP Family Medicine; Referring Provider Psychiatry & Neurology Psychiatry; Visit Provider Psychiatry & Neurology Psychiatry
DX: F33.1 Major depressive disorder, recurrent, moderate (principal); F41.1 Generalized anxiety disorder; E03.9 Hypothyroidism, unspecified
CPT/HCPCS: 90853

== ENCOUNTER 2020-06-19 14:00 | Outpatient (RCR) | payer OTHER, SELFPAY ==
[2020-03-10 09:21] VITALS: BMI 25.0
--- NOTE | 2020-06-19 14:00 | BH.SGPN.GN ---
Behaviors/Verbalizations/Mental Status: []Client alert and oriented, neatly dressed and groomed. Eye contact good. Motor activity appropriate. Speech within normal limits. Affect congruent, mood euthymic. Thoughts linear, logical, no signs of hallucinations or delusions. Client Response/Progress/Benefit: []Client receptive of session, engaged throughout and notes feeling ?happy? today. Client shared she had a good week so far and reports feeling calm during times when I would normally be stressed. Client stated she followed through with her goal from last week which helped client feel less stressed in the morning. Client reports using thought challenging, positive affirmations, and exercise to cope with her emotions this week. Receptive of discussion on personal accountability and its importance in maintaining mental health stability. Engaged in discussion on different accountability styles and brainstorming strategies for improving ability to hold themselves accountable. Client identified that for homework she wants to finish a book for her book club by next week. Client reported she can hold herself accountable by setting a timer for 30 minutes each night to help client focus on reading. Client seemed to benefit from support from peers and increasing understanding of personal accountability benefits and strategies. Progress noted in client?s application of coping skills and optimistic perspective on college. Will continue IOP aftercare group. Narrative Note: []
--- NOTE | 2020-07-03 14:01 | BH.SGPN.GN ---
Behaviors/Verbalizations/Mental Status: []Client alert and oriented, wearing work scrubs, hygiene tended to. Eye contact good. Motor activity appropriate. Speech within normal limits. Affect congruent, mood euthymic, anxious. Thoughts linear, logical. No signs of hallucinations or delusions. Client Response/Progress/Benefit: [] Client responded well to session, attentive and engaged throughout. Client reported she struggled over the past week with working on goal to challenge her negative internal dialogue. Expressed that she was able to recognize when her thoughts were negative but struggled to challenge them; however, was able to make some progress in this area. Identified skills used to work towards goal as: journaling, opposite action, and practicing self-care. Client stated stressor today as ongoing issues with setting unrealistic expectations for herself, though appeared to respond well and benefited from support provided by the group. Contributed during discussion on making healthy choices and the barriers that prevent doing so. Client identified personal barriers to be: fear of the unknown, difficulties accepting help, and negative thoughts. Client attentive throughout discussion of strategies to improve healthy decision making. Noted wanting to improve decision making regarding personal relationships and selected the strategies of ?talking things out first? with supports and creating a pro/con list as the game plan for the week. Appeared to benefit from reflecting on application of coping skills, identifying barriers, and creating a game plan to improve healthy decision-making skills. Narrative Note: []
--- NOTE | 2020-07-03 16:26 | BH.TPR ---
Treatment Plan Review Date of Admission:: 05/15/20 Date of Treatment Plan Review:: 07/03/20 Admitting Diagnoses:: Major depressive disorder, recurrent, moderate without psychosis; generalized anxiety disorder; hypothyroidism; primary support and work issues. Current Diagnoses:: Major depressive disorder, recurrent, moderate without psychosis; generalized anxiety disorder; hypothyroidism; primary support and work issues. Patient's Response to Treatment:: Client is engaged in IOP aftercare as evidenced by client's participation in group discussions, self-report of consistently applying coping skills, and self-report of ongoing mood stability. Status of Current Problems and Symptoms: Client reports current stressors which include setting unrealistic expectations for herself and combating negative thinking. Client also reports some stressors at work and stress due to the upcoming holidays. Problem #1 Problem Name:: Pt. will maintain or see a reduction in sx AEB client score on the DSM-5 Status of Goals:: Objective 1- complete with ongoing work encouraged. Unable to administer the DSM-5, but per client?s self-report, client?s depression and anxiety symptoms are mild-moderate. Client?s symptoms are not currently impacting her familial or occupational functioning. Objective 2- complete with ongoing work encouraged. Client has been consistently reporting use of opposite action, journaling, self-care, spending time with supports, and exercise. Team Recommendations:: Team recommends pt continue IOP aftercare group in addition to attending regular outpatient counseling in order to promote mood stability and emotional regulation.
== END 2020-07-14 23:59 ==
LOC: BHOG 14:00
PROVIDERS: PCP Family Medicine; Referring Provider Psychiatry & Neurology Psychiatry; Visit Provider Psychiatry & Neurology Psychiatry
DX: F33.1 Major depressive disorder, recurrent, moderate (principal); F41.8 Other specified anxiety disorders; E03.9 Hypothyroidism, unspecified
CPT/HCPCS: 90853

== ENCOUNTER 2020-07-17 14:00 | Outpatient (RCR) | payer OTHER, SELFPAY ==
[2020-03-10 09:21] VITALS: BMI 25.0
--- NOTE | 2020-07-17 14:00 | BH.SGPN.GN ---
Behaviors/Verbalizations/Mental Status: []Client alert and oriented, neatly dressed and groomed. Eye contact good. Motor activity appropriate. Speech within normal limits. Affect congruent, mood anxious. Thoughts linear, logical, no signs of hallucinations or delusions. Client Response/Progress/Benefit: []Client responded well to session, checking in using GAPS. Client?s emotion today is ?anxious? due to finding out today that a long-time coworker of client?s is getting a different job. Client reported multiple wins including continuing to go to the gym and working on challenging her expectations. Client states using opposite action and reframing to cope with daily stressors. Receptive of discussion on self-talk and its influence in maintaining long-term mental health stability. Contributed to strategies for improving effective creation and application of believable personal affirmations. Client?s affirmational statements were ?I?m resilient and okay in this moment? and ?I am at peace with what?s happening.? Progress noted in client?s self-report of improved mood stability and more optimistic mindset. Client to continue aftercare group to promote gains and further increase application of healthy coping skills. Narrative Note: []
--- NOTE | 2020-07-31 14:00 | BH.SGPN.GN ---
Behaviors/Verbalizations/Mental Status: []Client alert and oriented, neatly dressed and groomed. Eye contact good. Motor activity appropriate. Speech within normal limits. Affect constricted, mood dysthymic. Thoughts linear, logical, no signs of hallucinations or delusions. Client Response/Progress/Benefit: []Client responded well to session, checked in using her GAPs worksheet. Client?s goal from last session was to work on not beating herself up about the past. Client stated ?it didn?t go very well? and that she continues to struggle with self-forgiveness. Client reports work and the holidays as a stressor. Client receptive to supportive feedback on self-forgiveness. Client engaged well during the discussion of the components of self-compassion. Client connected with the benefits of self-compassion and agreed with peers that it is much easier to be compassionate to others than to self. Client participated in the activity of reframing a recent setback using self-compassion. Client used the example of struggling with self-forgiveness. Client was able to reframe this situation using self-compassion and stated, ?I can let go of past mistakes and establish new ways of thinking.? Client was encouraged to remind herself that regardless of her past client is still worthy of love and acceptance. Client appeared to benefit from practicing self-compassion and gaining supportive feedback. Will continue aftercare to promote mood stability and reinforce healthy coping skills. Narrative Note: []
--- NOTE | 2020-08-14 14:48 | BH.DS ---
Discharge Summary - Demographics Date of Admission:: 05/22/20 Discharge Date: 08/14/20 Presenting Problems at Admission:: Client discharged from IOP tx and transitioned to IOP aftercare to maintain gains client made in IOP and to reinforce healthy coping skills. At admission to IOP aftercare, client reported experiencing slight symptoms of anxiety and depression. Client was also experiencing life stressors including work stress, relationship stress, mental health management, and parenting. Client also continued to struggle with advocating for her needs and challenging negative thinking on a consistent basis. Despite these stressors, client reported ability to cope with her mental health and was activity using healthy skills. Discharge Diagnoses:: Major depressive disorder, recurrent, severe without psychosis F 33.2; generalized anxiety disorder Reason for Discharge:: Client has accomplished her tx goals AEB her ability to maintain mood stability and gains made in IOP. Client will transition to traditional outpatient counseling. - Treatment Progress During Treatment & Response: Client was engaged in IOP aftercare as evidenced by client's participation in group discussions and self-report of consistently applying coping skills. From review to discharge, client's DSM-5 scores decreased overall by 78%. Additionally, client was reporting an improved mood, more positive thinking patterns, consistent use of healthy coping skills, better balance at work, spending more time with her daughter, and consistently practicing self-care. Issues Still to be Addressed:: Client can continue to benefit from outpatient counseling to replace negative core beliefs, improve self-esteem, and increase ability to assertively communicate needs. Discharge Recommendations/Instructions:: Client is encouraged to continue with outpatient counseling on a weekly basis with Brandie Villaseñor at [facility] [place]. Discharge Handout: Complete Discharge Handout with client on aftercare options and continuity of care.
== END 2020-08-14 14:00 | disposition home or self-care (01) ==
LOC: BHOG 14:00
PROVIDERS: PCP Family Medicine; Referring Provider Psychiatry & Neurology Psychiatry; Visit Provider Psychiatry & Neurology Psychiatry
DX: F33.2 Major depressive disorder, recurrent severe without psychotic features (principal); F41.1 Generalized anxiety disorder
CPT/HCPCS: 90853

== ENCOUNTER → 2020-07-28 | Outpatient (CLI) | payer OTHER, SELFPAY ==
[2020-03-10 09:21] VITALS: BMI 25.0
[2020-07-31 10:51] LABS: HPV Reflexed? NOT INDICATED
== END | disposition home or self-care (01) ==
LOC: LABSPEC 17:23
PROVIDERS: PCP Family Medicine; Visit Provider Obstetrics & Gynecology
DX: Z12.4 Encounter for screening for malignant neoplasm of cervix (principal)
CPT/HCPCS: 88175; G0145

== ENCOUNTER → 2021-03-30 12:41 | Outpatient (CLI) | payer OTHER, SELFPAY ==
[2020-03-10 09:21] VITALS: BMI 25.0
[2021-03-30 15:28] LABS: Vitamin D,25 Hydroxy 28.6 ng/mL
[2021-03-30 15:46] LABS: T4 Free Direct 0.92 ng/dL (0.76-1.46); Thyroid Stim Hormone (TSH) 0.75 uIU/mL (0.358-3.74)
== END ==
PROVIDERS: PCP Family Medicine; Referring Provider Family Medicine; Visit Provider Family Medicine
DX: E03.9 Hypothyroidism, unspecified (principal); E55.9 Vitamin D deficiency, unspecified
CPT/HCPCS: 36415; 82306; 84439; 84443

== ENCOUNTER → 2021-05-06 12:50 | Outpatient (CLI) | payer OTHER, SELFPAY ==
[2021-05-06 14:06] LABS: Syphilis Antibodies Non-reactive
[2021-05-06 14:17] LABS: Thyroid Stim Hormone (TSH) 0.71 uIU/mL (0.358-3.74)
== END ==
PROVIDERS: PCP Family Medicine; Referring Provider Family Medicine; Visit Provider Family Medicine
DX: R43.9 Unspecified disturbances of smell and taste (principal)
CPT/HCPCS: 36415; 82140; 84439; 84443; 86780

== ENCOUNTER → 2021-05-08 10:56 | Outpatient (CLI) | payer OTHER, SELFPAY ==
[2021-05-08 11:39] LABS: Internal QC Validated? YES +Cl - CLEAR BKGD; Pregnancy, Urine Negative Negative
== END ==
PROVIDERS: PCP Family Medicine; Visit Provider Dermatology Pediatric Dermatology
DX: L70.8 Other acne (principal); Z79.899 Other long term (current) drug therapy
CPT/HCPCS: 81025

== ENCOUNTER → 2021-05-25 16:21 | Outpatient (CLI) | payer OTHER, SELFPAY ==
--- NOTE | 2021-05-25 16:33 | MRI_ITS ---
STUDY: MRI BRAIN WITHOUT CONTRAST REASON FOR EXAM: Female, 40 years old. Change in smell TECHNIQUE: Standardized multiplanar fat and water weighted pulse sequences were obtained. COMPARISON: None. FINDINGS: Brain parenchyma is intact without focal lesions, mass effect, extra parenchymal fluid collections, hydrocephalus or herniation. Region of olfactory bulbs are normal. Major vascular flow structures are intact. Craniocervical junction is unremarkable. Paranasal sinuses are clear. MRI/Brain without Contrast IMPRESSION: 1. Unremarkable brain MRI. Electronically Signed: Wendy Dyson MD at 17:55 EDT Tel , Service support ,
== END ==
PROVIDERS: PCP Family Medicine; Referring Provider Family Medicine; Visit Provider Family Medicine
DX: R43.9 Unspecified disturbances of smell and taste (principal)
CPT/HCPCS: 70551

== ENCOUNTER 2021-06-09 11:05 | Outpatient (RCR) | payer OTHER, SELFPAY ==
--- NOTE | 2021-07-28 12:40 | MASS.DISCH ---
Massage Therapy Discharge Summary: Initial Evaluation Date: 06/09/21 Diagnosis: Cervicalgia and back pain No. of Visits: 1 Date of last visit: 06/09/21 This patient is being discharged from our care at the [facility]. Thank you, Ariadne Gonzalez LMT
== END 2021-06-09 19:00 | disposition home or self-care (01) ==
LOC: MASS 11:05
PROVIDERS: PCP Family Medicine; Referring Provider Family Medicine; Visit Provider Family Medicine
DX: M54.2 Cervicalgia (principal)
CPT/HCPCS: 97124

== ENCOUNTER → 2021-06-23 12:43 | Outpatient (CLI) | payer OTHER, SELFPAY ==
[2021-06-23 13:28] LABS: Internal QC Validated? YES +Cl - CLEAR BKGD; Pregnancy, Urine Negative Negative
== END ==
PROVIDERS: PCP Family Medicine; Visit Provider Dermatology Pediatric Dermatology
DX: L70.8 Other acne (principal); Z79.899 Other long term (current) drug therapy
CPT/HCPCS: 36415; 81025

== ENCOUNTER → 2021-07-08 | Outpatient (CLI) | payer OTHER, SELFPAY | END | disposition home or self-care (01) | LOC: LABSPEC 16:51 | PROVIDERS: PCP Family Medicine; Visit Provider Obstetrics & Gynecology | DX: Z11.3 Encounter for screening for infections with a predominantly sexual mode of transmission (principal) ==

== ENCOUNTER → 2021-07-24 13:49 | Outpatient (CLI) | payer OTHER, SELFPAY ==
[2021-07-24 15:34] LABS: Internal QC Validated? YES +Cl - CLEAR BKGD; Pregnancy, Urine Negative Negative
== END ==
PROVIDERS: PCP Family Medicine; Referring Provider Physician Assistant Medical; Visit Provider Physician Assistant Medical
DX: L70.0 Acne vulgaris (principal); Z79.899 Other long term (current) drug therapy; L30.8 Other specified dermatitis; L72.0 Epidermal cyst
CPT/HCPCS: 81025

== ENCOUNTER 2021-09-05 09:39 | Outpatient (CLI) | payer OTHER, SELFPAY ==
[2021-09-05 10:08] LABS: Absolute Lymphocyte Count 1.72 X10^3/uL (0.83-4.51); Basophil# 0.03 X10^3/uL; Basophil% 0.5 % (0-1); Eosinophil# 0.18 X10^3/uL; Eosinophils% 2.8 % (0-5); Hematocrit 41.9 % (37-47); Hemoglobin 13.9 g/dL (12.0-15.0); Lymphocyte # 1.72 X10^3/ul (0.83-4.51); Lymphocyte % 26.3 % (19-41); Mean Corp Hgb Conc 33.2 g/dL (32-36); Mean Corpuscular Hgb 28.7 pg (27.0-32.0); Mean Corpuscular Volume 86.6 fL (81-99); Mean Platelet Vol. 10.5 fl (6.2-12.0); Monocyte# 0.57 X10^3/uL; Monocyte% 8.7 % (0-10); NRBC Flagged by Analyzer 0 % (0-5); Neutrophil % 61.2 % (47-70); Platelet Count 239 K/mm3 (150-450); RBC Distribution Width CV 12.2 % (11.6-14.6); RBC Distribution Width SD 38.7 fl (35.1-43.9); Red Blood Count 4.84 M/mm3 (4.2-5.4); White Blood Count 6.5 K/mm3 (4.4-11.0)
[2021-09-05 10:10] LABS: Internal QC Validated? YES +Cl - CLEAR BKGD
[2021-09-05 10:11] LABS: Pregnancy, Urine Negative Negative
[2021-09-05 10:33] LABS: AST(SGOT) 22 U/L (15-37); Alanine Aminotransfer ALT/SGPT 44 U/L (13-56); Albumin, Serum 3.7 g/dL (3.2-5.0); Alkaline Phosphatase 57 U/L (45-117); Anion Gap 5 (5-15); BUN 13 mg/dL (7-18); BUN/Creat Ratio 15.4 RATIO (10-20); Calcium,Total 8.7 mg/dL (8.5-10.1); Chloride 106 mmol/L (98-107); Cholesterol 222 mg/dL (200); Creatinine, Serum 0.84 mg/dL (0.55-1.02); EST Glomerular Filtration Rate 79 mL/min (>60); Est Glom Filt Rate - Afr Amer 96 mL/min (>60); Globulin 3.8 g/dL (2.2-4.2); Glucose 87 mg/dL (74-106); High Density Lipoprotein 68 mg/dL; Potassium 4.3 mmol/L (3.5-5.1); Protein, Total 7.5 g/dL (6.4-8.2); Sodium Level 139 mmol/L (136-145); Triglycerides 55 mg/dL; Very Low Density Lipoprotein 11 mg/dL (5-40)
== END 2021-09-05 23:59 | disposition short-term general hospital (02) ==
LOC: LAB 09:43
PROVIDERS: PCP Family Medicine; Visit Provider Physician Assistant Medical
DX: L70.0 Acne vulgaris (principal); Z79.899 Other long term (current) drug therapy; Z41.9 Encounter for procedure for purposes other than remedying health state, unspecified; L85.3 Xerosis cutis
CPT/HCPCS: 36415; 80053; 80061; 81025; 85025

== ENCOUNTER 2021-09-24 16:45 | Outpatient (CLI) | payer OTHER, SELFPAY ==
--- NOTE | 2021-09-24 16:40 | BI_ITS ---
MAMMOGRAPHY - BILATERAL SCREENING REASON FOR EXAM: Female, 40 years old. Routine annual screening examination. PERTINENT HISTORY: Grandmother with breast cancer. Bilateral breast implants. TECHNIQUE: Digital bilateral breast sruthi (3D mammographic acquisition) in the CC and MLO projections. 2-D mediolateral oblique (MLO) and craniocaudad (CC) views of both breasts were obtained. CAD: Full Field Digital Mammography with Computer Added Detection was performed. COMPARISON: None. Baseline examination. FINDINGS: Breast Composition: The breasts are extremely dense, which lowers the sensitivity of mammography. There are no dominant masses or suspicious calcifications. Bilateral breast implants are seen. No other significant abnormalities are identified. BI/SCRN MAMM (CAD)W/SRUTHI BILAT IMPRESSION: Negative screening mammogram. Yearly followup mammogram recommended. (A) ASSESSMENT CATEGORY: BIRADS Category 2: Benign. A letter regarding these results will be sent to the patient by the facility within 30 days. Approximately 10% of breast cancers are not detected by mammography. A normal mammogram should not delay biopsy of a clinically suspicious abnormality. [id number] Electronically Signed: Javier Olivo MD at 9:19 EST ,
== END 2021-09-24 23:59 | disposition home or self-care (01) ==
LOC: OPBI 09-25 07:32
PROVIDERS: PCP Family Medicine; Referring Provider Obstetrics & Gynecology; Visit Provider Obstetrics & Gynecology
DX: Z12.31 Encounter for screening mammogram for malignant neoplasm of breast (principal); Z98.82 Breast implant status
CPT/HCPCS: 77063; 77067

== ENCOUNTER 2021-10-13 16:31 | Outpatient (CLI) | payer OTHER, SELFPAY ==
[2021-10-13 17:49] LABS: Internal QC Validated? YES +Cl - CLEAR BKGD; Pregnancy, Urine Negative Negative
== END 2021-10-13 23:59 | disposition home or self-care (01) ==
LOC: MTLAB 16:33
PROVIDERS: PCP Family Medicine; Referring Provider Physician Assistant Medical; Visit Provider Physician Assistant Medical
DX: L70.5 Acne excoriee (principal); Z79.899 Other long term (current) drug therapy
CPT/HCPCS: 81025

== ENCOUNTER → 2021-12-21 | Outpatient (CLI) | payer OTHER, SELFPAY ==
[2021-12-21 14:50] LABS: ALB/GLOB Ratio 1.1 RATIO (0.9-2.4); AST(SGOT) 15 U/L (15-37); Alanine Aminotransfer ALT/SGPT 20 U/L (13-56); Albumin, Serum 3.8 g/dL (3.2-5.0); Alkaline Phosphatase 65 U/L (45-117); Anion Gap 6 (5-15); BUN 17 mg/dL (7-18); BUN/Creat Ratio 18.9 RATIO (10-20); Calcium,Total 8.7 mg/dL (8.5-10.1); Chloride 105 mmol/L (98-107); EST Glomerular Filtration Rate 73 mL/min (>60); Est Glom Filt Rate - Afr Amer 89 mL/min (>60); Globulin 3.6 g/dL (2.2-4.2); Glucose 87 mg/dL (74-106); Protein, Total 7.4 g/dL (6.4-8.2); Sodium Level 137 mmol/L (136-145); T4 Free Direct 0.94 ng/dL (0.76-1.46)
== END | disposition home or self-care (01) ==
LOC: LAB 13:18
PROVIDERS: PCP Family Medicine; Referring Provider Family Medicine; Visit Provider Family Medicine
DX: E03.9 Hypothyroidism, unspecified (principal); R11.0 Nausea
CPT/HCPCS: 36415; 80053; 84439; 84443

== ENCOUNTER → 2022-09-13 | Outpatient (CLI) | payer OTHER, SELFPAY ==
[2022-09-13 18:52] LABS: Free T3 2.2 pg/mL (2.18-3.98); T4 Free Direct 0.99 ng/dL (0.76-1.46); Thyroid Stim Hormone (TSH) 0.98 uIU/mL (0.358-3.74)
== END | disposition home or self-care (01) ==
LOC: MFPLAB 17:02
PROVIDERS: PCP Family Medicine; Visit Provider Family Medicine
DX: E03.9 Hypothyroidism, unspecified (principal)
CPT/HCPCS: 36415; 84439; 84443; 84481

== ENCOUNTER → 2022-11-19 | Outpatient (CLI) | payer SELFPAY ==
--- NOTE | 2022-11-19 12:46 | MRI_ITS ---
STUDY: BILATERAL BREAST MR WITHOUT AND WITH CONTRAST REASON FOR EXAM: Female, 42 years old. History of breast cancer status post placement of bilateral silicone implants. History of right breast abscess in 2012. Screening for breast cancer. TECHNIQUE: Multi-sequence multi-echo imaging of both breasts was performed with a dedicated breast coil. T1-weighted and T2-weighted images were performed before the administration of contrast. T1-weighted images were also performed after the intravenous administration of 14 mL of Clariscan contrast. COMPARISON: Prior breast MRI without contrast dated September 2016. Prior bilateral mammogram dated September 24, 2021. FINDINGS: RIGHT BREAST: Stable bilateral subpectoral silicone implant with minimal background enhancement. No evidence of intracapsular or extracapsular rupture. No abnormal enhancing masses or areas of non-mass enhancement in the right breast. LEFT BREAST: Stable bilateral subpectoral silicone implant with minimal background enhancement. No evidence of intracapsular or extracapsular rupture. No abnormal enhancing masses or areas of non-mass enhancement in the right breast. No enlarged or abnormal lymph nodes. No abnormality in the visualized regions of the chest or liver. MRI/Breast Bilateral W/O and W IMPRESSION: No change in the breast MRI examination without and with contrast. Alternating yearly screening mammogram and breast MRI for evaluation would recommended, if clinically felt to be appropriate. CATEGORY: BIRADS Category 2: Benign. A letter regarding these results will be sent to the patient by the facility within 30 days. Electronically Signed: Horacio Noel, at 9:30 EDT ,
== END | disposition home or self-care (01) ==
PROVIDERS: PCP Family Medicine; Referring Provider Obstetrics & Gynecology; Visit Provider Obstetrics & Gynecology
DX: Z12.39 Encounter for other screening for malignant neoplasm of breast (principal)
CPT/HCPCS: 77049; A9575; C8908

== ENCOUNTER → 2023-03-31 | Outpatient (CLI) | payer OTHER, SELFPAY ==
[2023-03-31 17:04] LABS: Absolute Lymphocyte Count 2.31 X10^3/uL (0.83-4.51); Absolute Neutrophil Count 5.8 X10^3/uL (2.0-7.7); Basophil# 0.05 X10^3/uL; Basophil% 0.5 % (0-1); Eosinophil# 0.42 X10^3/uL; Eosinophils% 4.6 % (0-5); Hematocrit 42.6 % (37-47); Hemoglobin 13.4 g/dL (12.0-15.0); Lymphocyte # 2.31 X10^3/ul (0.83-4.51); Mean Corp Hgb Conc 31.5 g/dL (32-36); Mean Corpuscular Hgb 28.5 pg (27.0-32.0); Mean Corpuscular Volume 90.6 fL (81-99); Mean Platelet Vol. 10.6 fl (6.2-12.0); Monocyte# 0.59 X10^3/uL; Monocyte% 6.4 % (0-10); NRBC Flagged by Analyzer 0 % (0-5); Neutrophil # 5.81 X10^3/uL (2.7-7.7); Platelet Count 229 K/mm3 (150-450); RBC Distribution Width CV 12.3 % (11.6-14.6); RBC Distribution Width SD 40.9 fl (35.1-43.9); White Blood Count 9.2 K/mm3 (4.4-11.0)
[2023-03-31 17:35] LABS: Hemoglobin A1c 4.6 % (3.8-5.6)
[2023-03-31 17:45] LABS: Anion Gap 5 (5-15); BUN 22 mg/dL (7-18); BUN/Creat Ratio 17.6 RATIO (10-20); Calcium,Total 8.8 mg/dL (8.5-10.1); Chloride 105 mmol/L (98-107); Creatinine, Serum 1.25 mg/dL (0.55-1.02); EST Glomerular Filtration Rate 50 mL/min (>60); Est Glom Filt Rate - Afr Amer 60 mL/min (>60); Glucose 90 mg/dL (74-106); Potassium 4.4 mmol/L (3.5-5.1); Sodium Level 137 mmol/L (136-145); Thyroid Stim Hormone (TSH) 1.16 uIU/mL (0.358-3.74)
== END | disposition home or self-care (01) ==
LOC: LAB 16:33
PROVIDERS: Anesthesiology; PCP Family Medicine; Referring Provider Obstetrics & Gynecology; Visit Provider Obstetrics & Gynecology
DX: Z01.818 Encounter for other preprocedural examination (principal)
CPT/HCPCS: 36415; 80048; 83036; 84443; 85025; 86850; 86900; 86901

== ENCOUNTER 2023-04-05 09:44 | Day surgery (SDC) | payer OTHER, SELFPAY ==
--- NOTE | 2023-04-05 10:09 | PCM.HP.BLA ---
History and Physical Date of Admission: 04/05/23 Intake Vital Signs 01/21/2310:46 03/02/2313:50 03/02/2313:50 Height 5 ft 4.5 in 5 ft 4.5 in 5 ft 4.5 in Weight: 139 lb 6 oz BMI 23.6 BP 107/73 113/74 Blood Pressure Location Lt brachial Position Sitting Pulse 90 Pulse Source Monitor Intake Visit Reasons: BS Line Service Person Required: No Is patient in pain?: No Allergies amoxicillin trihydrate [From Augmentin] Allergy (Verified 03/02/23 13:50) Hiveslatex Allergy (Verified 03/02/23 13:50) Rashpotassium clavulanate [From Augmentin] Allergy (Verified 03/02/23 13:50) Hives Medications levothyroxine 200 mcg tablet (Synthroid) PO 09/01/17 [History Confirmed 03/02/23] bupropion HCl 150 mg 24 hr tablet, extended release 150 mg PO DAILY 04/09/20 [History Confirmed 03/02/23] dulaglutide 1.5 mg/0.5 mL subcutaneous pen injector (Trulicity) 1.5 mg subcut QWEEK 10/05/22 [History Confirmed 03/02/23] fluconazole 150 mg tablet (Diflucan) 150 mg PO ONCE #1 TAB 03/01/23 [Rx Confirmed 03/02/23] fluconazole 150 mg tablet (Diflucan) 150 mg PO DAILY 1 day #1 TAB 03/02/23 [Rx Confirmed 03/02/23] Post menopausal: No Patient : No : No PFSH Medical History Back pain Generalized anxiety disorder Major depressive disorder, recurrent severe without psychotic features Neck pain Thyroid disease Surgical History H/O breast implant Family History Grandmother Breast cancer Thyroid disorderAunt DiabetesFather Thyroid disorder Social History adopted: No household members: children number of children: 1 current occupational exposures/hazards: No pets and animals: Yes history of recent travel: Yes ([place]) out of state: Yes out of country: No sexually active: No Smoking Status: Never smoker second hand exposure: No alcohol intake: never substance use type: does not use what type of physical activity do you participate in: weight training seatbelt use: always do you feel safe at home: Yes HPI BS Details: AMISH FELDMAN is a 42 year old G1 who presents for pre-operative exam for a laparoscopic bilateral salpingectomy. History Elective abortions Hx Para 0 Spontaneous abortions Hx # Term Pregnancies Ectopic pregnancies Hx # Pregnancies Multiple births # of living children Past Pregnancies Del. Date Name GA/Weeks Outcome Route Bth Weight Infant Gen Labor Lgth Anesthesia Del [facility] Provider FOB Unknown Simona 2013 ROS Const ROS Unobtainable: All systems reviewed & are unremarkable except as noted in H Resp Resp: Reports system reviewed and no additional complaints, except as documented; Denies cough GI GI: Reports as per HPI Psych Psych: Reports system reviewed and no additional complaints, except as documented Exam Const General: cooperative, healthy appearing, comfortable and no acute distress Resp Effort & Inspection: normal respiratory effort Skin General: no rashes or lesions noted Psych Appearance: grossly normal Speech and Movement: speech and movement normal Coding Level of Care Code Off vis,est,level 3 Diagnoses Contraceptive management Z30.9 Assessment and Plan Assessment and Plan (1) Contraceptive management: Status: Acute Plan: After discussing the patient's diagnosis and treatment plan options, patient wishes to proceed with surgical management. I have discussed with the patient the risks, benefits, and alternatives of the procedure which include but are not limited to risks of anesthesia, bleeding, infection, possible damage to bowel, bladder, or surrounding vasculature which could lead to additional surgery to evaluate any complications. Patient agrees to procedure and wishes to proceed. ACOG/uptodate references given for additional information regarding procedure. plan for laparoscopic bilateral salpingectomy. consent form signed.
[2023-04-05 10:13] LABS: Internal QC Validated? YES +Cl - CLEAR BKGD; Pregnancy, Urine Negative Negative
[2023-04-05 10:25] VITALS: BP 108/75; PULSE 87; RESP 16; TEMP 36.8; O2SAT 100; BMI 23.1
[2023-04-05] MEDS: Lactated Ringers 1,000 ML 15 ML IV ×2 (10:28→12:12)
--- NOTE | 2023-04-05 10:51 | DCINST_ITS ---
Discharge Instructions Diet Discharge Diet: No restrictions Activity Discharge Activity: Return to Normal Activity, May Not Drive (for two weeks or while taking narcotic pain medications.), May Shower and May Take a Tub Bath (in 7 days) May resume sexual activity in: 1 week Weight Bearing Status: Full weight bearing Dressing / Incision Call your doctor if you observe: Using more than 1 pad per hour, Shortness of breath, Chest pain and Uncontrolled pain Suture Line Care: Avoid Pulling/Pushing and Avoid Pinching/Bending Remove Dressing in: 1 week (if present) Cleanse incision/area with: Soap & Water and Keep Dressing Clean & Dry Follow Up Care Please Follow Up With: Valencia Ricketts DO When: Call to make an appointment with your doctor for a follow up incision check in 1-2 weeks. Test Results: Test results from this visit will be discussed in further detail at your follow- up appointment, if applicable. Discharge Plan Admission Primary Reason for Your Visit: laparoscopic bilateral salpingectomy Attending Provider: Valencia Ricketts Primary Care Provider: Napoleon Cheatham Discharge Orders/Prescriptions Prescriptions: New ondansetron HCl 4 mg tablet 4 mg PO Q6H PRN (Reason: nausea and vomiting) Qty: 20 0RF oxycodone-acetaminophen [Percocet] 5-325 mg tablet 1 tab PO Q4H PRN (Reason: pain) 7 Days Qty: 7 0RF Rx Instructions: 1-2 tabs q 4 hrs as needed for pain ibuprofen 800 mg tablet 800 mg PO Q8H PRN (Reason: pain) Qty: 30 0RF Continued levothyroxine [Synthroid] 200 mcg tablet 75 mcg PO DAILY Trulicity 1.5 mg/0.5 mL pen injector 1.5 mg subcut QWEEK venlafaxine 75 mg capsule,extended release 24hr 75 mg PO DAILY Referrals / Follow Up: Napoleon Cheatham MD [Primary Care Provider] - Disposition Disposition (needs filled in before D/C Order can be placed): Home, Self Care
--- NOTE | 2023-04-05 11:08 | OP.PCM_ITS ---
Problems Associated Problem List Diagnoses (1) Contraceptive management: Report of Operation Date of Procedure: 04/05/23 Pre-Operative Diagnosis: desires permanent sterilization Post-Operative Diagnosis: desires permanent sterilization Surgery/Procedure Performed:: laparoscopic bilateral salpingectomy Surgeon: Valencia Ricketts campaign management senior manager: Jose Antonio Mancia Type of Anesthesia: General Description of Procedure: Patient was taken in the operating room and was placed under general anesthesia was prepped and draped in normal sterile fashion in the dorsal lithotomy position. Bladder was drained of clear urine and SCDs were on preoperatively. A vaginal sponge stick was placed. Attention was then paid to the abdominal portion of the procedure and the umbilicus was elevated and injected with Marcaine and after a 5 mm incision was made and a 5 mm trocar was inserted into the abdomen under direct visualization using the laparoscope. Abdomen was insufflated with CO2 gas and a 5 mm optical trocar was placed under direct visualization. A left lower quadrant 5 mm port and a mini grasper suprapubically were placed under direct visualization. Uterus was well visualized and bilateral fallopian tubes identified and bilateral tubes were elevated and transecting across the mesosalpinx and the attachment to the uterine corpus bilaterally the tubes were removed without complication. Excellent hemostasis was noted. Fallopian tubes were removed through the lower port sites without complication. Liver and upper abdomen were visualized notably within normal limits and no other gross abnormalities were seen in the abdomen. All instruments removed from the abdomen after gas was desufflated. Port sites were closed with 3-0 Monocryl Steri's and op sites were applied. All instruments removed from the vagina and patient was awoken and taken recovery in stable condition. Admit VTE Documentation VTE Present on Admission: No VTE Mechan Device Prophylaxis: SCD's Multi Select Codes Urinary/Genital Urinary/Genital CPT Codes: 20395 Laproscopic BS/O
--- NOTE | 2023-04-05 11:10 | FALS_PTH ---
PATIENT: AMISH FELDMAN LOC: [facility] [place] U#:[id number] AGE/SX: 42/F ROOM: RE04/05/[address]: Dr. Valencia Ricketts DO : 1980 BED: DIS: 04/05/2023 SPEC #: [id number] RECD: 04/05/23 12:49 STATUS: MJ OTERO #: [id number] LEO: 04/05/23 11:[address]: Valencia Ricketts DEPT: SURGICAL PATHOLOGY RECD BY: Laura Rader ENTERED: 04/05/23 13:01 SP TYPE: FALL TUBES OTHR DR: Dr. Napoleon Cheatham MD Tissues: Fallopian tube Procedures: Surgery Specimen Level II HEADER OPERATION: Laparoscopic salpingectomy PRE-OP DIAGNOSIS: Elective sterilization TISSUE SUBMITTED: Bilateral fallopian tubes MICROSCOPIC DIAGNOSIS Right and left fallopian tubes, bilateral salpingectomies: Complete cross sections with no pathologic change. AM/am 04/06/23 MICROSCOPIC DESCRIPTION Slides are reviewed. GROSS DESCRIPTION Received in fixative is one container labeled with the patient's name and designated bilateral fallopian tubes. The specimen consists of two fallopian tubes with an average length of 8.0 cm and has an average diameter of 0.6 cm. Both fallopian tubes have normal fimbriated ends. No mass lesions are identified. Vp Biology sections are submitted in two cassettes as follows: 1 - one fallopian tube, 2??the other fallopian tube. / AM:corina 04/05/2023 TC:4 CPT: 36082 x2
[2023-04-05] MEDS: Bupivacaine 0.25% 30 ML Vial (11:29)
[2023-04-05 11:54] VITALS: BP 108/75; BP 123/90; PULSE 83; RESP 16; TEMP 36.3; O2SAT 100
[2023-04-05 12:00] VITALS: BP 108/75; BP 120/86; PULSE 82; RESP 16; O2SAT 100
[2023-04-05 12:15] VITALS: BP 108/75; BP 109/82; PULSE 71; TEMP 36.3; O2SAT 74
[2023-04-05 12:59] VITALS: BP 108/75
== END 2023-04-05 13:17 | disposition home or self-care (01) ==
LOC: SDC 09:44 → AC 09:45
PROVIDERS: PCP Family Medicine; Referring Provider Obstetrics & Gynecology; Visit Provider Obstetrics & Gynecology
PROC: (CPT 58661; principal; 2023-04-05 10:55)
DX: Z30.2 Encounter for sterilization (principal); Z30.49 Encounter for surveillance of other contraceptives; E07.9 Disorder of thyroid, unspecified; Z86.16 Personal history of COVID-19; Z98.82 Breast implant status; F32.A Depression, unspecified; F41.1 Generalized anxiety disorder; E28.2 Polycystic ovarian syndrome
CPT/HCPCS: 58661; 00840; 81025; 88302; J7120; J2405

== ENCOUNTER → 2023-05-24 | Outpatient (CLI) | payer OTHER, SELFPAY ==
[2023-05-24 14:44] LABS: Anion Gap 3 (5-15); BUN 16 mg/dL (7-18); BUN/Creat Ratio 18.1 RATIO (10-20); Calcium,Total 8.7 mg/dL (8.5-10.1); Chloride 105 mmol/L (98-107); Creatinine, Serum 0.88 mg/dL (0.55-1.02); EST Glomerular Filtration Rate 74 mL/min (>60); Est Glom Filt Rate - Afr Amer 90 mL/min (>60); Glucose 68 mg/dL (74-106); Potassium 3.7 mmol/L (3.5-5.1); Sodium Level 138 mmol/L (136-145)
== END | disposition home or self-care (01) ==
LOC: LAB 13:56
PROVIDERS: PCP Family Medicine; Referring Provider Family Medicine; Visit Provider Family Medicine
DX: R79.89 Other specified abnormal findings of blood chemistry (principal)
CPT/HCPCS: 36415; 80048

== ENCOUNTER → 2023-08-02 | Outpatient (CLI) | payer OTHER, SELFPAY ==
--- NOTE | 2023-08-02 08:57 | NEURO_ITS ---
NCS and/or EMG Patient Report Ordering Doctor: Serjio Singh DATE OF SERVICE: 08/02/23 Clinical Summary: This is a 42 year old female presenting with symptoms of cramping in her toes and feet - usually at night while lying in bed. She denies having any numbness or tingling in the lower extremities including the feet. She denies having any back pain or any sciatica symptoms. This EMG/NCS was performed to evaluate for peripheral polyneuropathy. Nerve Conduction Studies Summary: There was left peroneal motor conduction velocity slowing across the fibular head greater than 10 m/s. Otherwise, nerve conduction studies were within normal ranges in the bilateral lower extremities. Needle Examination Summary: Needle examination of select muscles of the bilateral lower extremities was normal. 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 Multi Select Codes Neurology Neurology Interp Codes: 29124-86 Musc test done w/n test comp (interp) (2) and 36928-11 Nrv cndj test 9-10 studies (interp)
== END | disposition home or self-care (01) ==
LOC: PSN 07:28
PROVIDERS: PCP Family Medicine; Referring Provider Podiatrist; Visit Provider Podiatrist
DX: R20.2 Paresthesia of skin (principal)
CPT/HCPCS: 95886; 95912

== ENCOUNTER → 2023-08-29 | Outpatient (CLI) | payer OTHER, SELFPAY ==
--- NOTE | 2023-08-29 10:45 | RAD_ITS ---
STUDY: X-RAY - LUMBAR SPINE REASON FOR EXAM: Female, 42 years old. Bilateral foot cramping TECHNIQUE: 5 view(s) of the lumbar spine were obtained including oblique views. COMPARISON: None FINDINGS: Normal lumbar lordosis. There is no substantial scoliosis. There is a normal alignment of the vertebrae. Normal vertebral bodies and endplates. Normal disc space heights. The soft tissue structures are unremarkable. RAD/L/S Spine Min 4 Views IMPRESSION: Normal x-ray examination of the lumbar spine. Electronically Signed: Javier Olivo MD at 14:22 EST ,
--- OUTSIDE RECORDS SUMMARY | 2023-08-29 11:06 | XMS RPT_ITS | CCD ---
Author Name Unknown Address [address] [place] [id number] Organization [facility] Clinical Note 08-22-2023 Note Date & Type Note Facility 08-22-2023 Note Sunil Guerrero checked the patient chart and our fax inbox, but at this time we have not received her referral. Patient can call her PCP and let them know that we have not received the referral and give them our fax number ([phone]) if needed. Thank you. [facility] Clinical Note 08-22-2023 Note Date & Type Note Facility 08-22-2023 Note Name of Caller: Steve portillo Contact Reason for Appointment: Pt states she needs to schedule. Pt states her pcp sent in a referral. Please advise. Office Name: Neurophysiology and General Neurology [facility] Summary Purpose Family History No Family History Records Found Advance Directives No Advanced Directives Records Found Additional Source Comments INFORMATION SOURCE (unrecogn ized section and content) FOR RECORDS PERTAINING TO PATIENTS WHO ARE OR HAVE BEEN ENROLLED IN A CHEMICAL DEPENDENCY/SUBSTANCEABUSE PROGRAM, SOME INFORMATION MAY BE OMITTED. This clinical summary was aggregated from multiple sources. Caution should be exercised in using it in the provision of clinical care. This summary normalizes information from multiple sources, and as a consequence, information in this document may materially change the coding, format and clinical context of patient data. In addition, data may be omitted in some cases. CLINICAL DECISIONS SHOULD BE BASED ON THE PRIMARY CLINICAL RECORDS. [facility] [employer] provides no warranty or guarantee of the accuracy or completeness of information in this document.
[2023-08-29 15:35] LABS: Erythrocyte Sedimentation Rate < 1 mm/hr (0-30)
[2023-08-29 16:25] LABS: Vitamin B12 321 pg/mL (211-911)
[2023-08-29 17:22] LABS: CRP < 2.90 mg/L (0.0-3.0)
[2023-09-01 12:08] LABS: Anti-Centromere B Ab <0.2 AI (0.0-0.9); Anti-Chromatin <0.2 AI (0.0-0.9); Anti-Jo <0.2 AI (0.0-0.9); Anti-Scleroderma-70 AB <0.2 AI (0.0-0.9); Anti-dsDNA Ab 1 IU/mL (0-9); RNP Ab 0.2 AI (0.0-0.9); SJOGREN'S Anti-SS-A test < 0.2 AI (0.0-0.9); SJOGREN'S Anti-SS-B test < 0.2 AI (0.0-0.9); Smith Ab <0.2 AI (0.0-0.9); Vitamin D 1,25-Dihydroxy 37.2 pg/mL (24.8-81.5)
== END | disposition home or self-care (01) ==
PROVIDERS: PCP Family Medicine; Referring Provider Chiropractor; Visit Provider Chiropractor
DX: M99.05 Segmental and somatic dysfunction of pelvic region (principal); M99.02 Segmental and somatic dysfunction of thoracic region; M54.9 Dorsalgia, unspecified
CPT/HCPCS: 36415; 72110; 82607; 82652; 82746; 85652; 86140; 86225; 86235

== ENCOUNTER → 2023-11-08 | Outpatient (CLI) | payer OTHER, SELFPAY ==
[2023-11-08 13:46] LABS: Mucous, Urine 0 SEEN /hpf (<or=2+); Red Blood Cells-Urine 0 SEEN /hpf (0-5); Squamous Epithelial Cells - UA 0 SEEN /hpf (5-10)
[2023-11-08 14:24] LABS: Glucose, Dipstick Normal (Normal); Ketone-Dipstick Negative (Negative); Leukocyte Esterase-Dipstick 500 /ul (Negative); Nitrite-Dipstick Positive (Negative); Occult Blood-Urine 250 /ul (Negative); Protein-Dipstick 100 mg/dl (Negative); Urine Clarity Cloudy (Clear); Urine Urobilinogen 12 mg/dl (Normal)
[2023-11-08 14:30] LABS: Color, Urine SEE COMMENT BELOW (Yellow); Urine Bilirubin Dipstick 6 mg/dL (Negative)
[2023-11-08 14:32] LABS: White Blood Cells >100 SEEN /hpf (0-5)
[2023-11-08 14:33] LABS: Bacteria 2+ /hpf (None Seen)
== END | disposition home or self-care (01) ==
LOC: LAB 13:43
PROVIDERS: PCP Family Medicine; Referring Provider Family Medicine; Visit Provider Family Medicine
DX: N39.0 Urinary tract infection, site not specified (principal)
CPT/HCPCS: 81001; 87086; 87088; 87186

== ENCOUNTER → 2023-12-09 | Outpatient (CLI) | payer OTHER, SELFPAY | END | disposition home or self-care (01) | LOC: LABSPEC 13:36 | PROVIDERS: PCP Family Medicine; Referring Provider Obstetrics & Gynecology; Visit Provider Obstetrics & Gynecology | DX: Z12.4 Encounter for screening for malignant neoplasm of cervix (principal) | CPT/HCPCS: 87624; 88175; G0145 ==

== ENCOUNTER → 2023-12-28 | Outpatient (CLI) | payer OTHER, SELFPAY ==
--- NOTE | 2023-12-28 14:20 | BI_ITS ---
MAMMOGRAPHY - BILATERAL SCREENING REASON FOR EXAM: Female, 43 years old. Routine annual screening examination. PERTINENT HISTORY: Grandmother with breast cancer. Bilateral breast implants. TECHNIQUE: Digital bilateral breast sruthi (3D mammographic acquisition) in the CC and MLO projections. 2-D mediolateral oblique (MLO) and craniocaudad (CC) views of both breasts were obtained. CAD: Full Field Digital Mammography with Computer Added Detection was performed. COMPARISON: Comparison is made with prior mammogram dated September 24, 2021 and prior MRI of the breast dated November 19, 2022. FINDINGS: Breast Composition: The breasts are extremely dense, which lowers the sensitivity of mammography. There are no dominant masses or suspicious calcifications. Stable appearance of the bilateral breast implants. No other significant abnormalities are identified. There has been no significant change since the prior study. BI/SCRN MAMM (CAD)W/SRUTHI BILAT IMPRESSION: Stable bilateral screening mammogram. Yearly follow-up mammogram recommended. (A) ASSESSMENT CATEGORY: BIRADS Category 2: Benign. A letter regarding these results will be sent to the patient by the facility within 30 days. Approximately 10% of breast cancers are not detected by mammography. A normal mammogram should not delay biopsy of a clinically suspicious abnormality. [id number] Electronically Signed: Javier Olivo MD at 10:47 EDT ,
== END | disposition home or self-care (01) ==
LOC: OPBI 14:20
PROVIDERS: PCP Family Medicine; Visit Provider Obstetrics & Gynecology
DX: Z12.31 Encounter for screening mammogram for malignant neoplasm of breast (principal); Z80.3 Family history of malignant neoplasm of breast
CPT/HCPCS: 77063; 77067

== ENCOUNTER → 2024-01-20 | Outpatient (CLI) | payer OTHER, SELFPAY ==
[2024-01-20 11:02] LABS: AST(SGOT) 14 U/L (15-37); Alanine Aminotransfer ALT/SGPT 19 U/L (13-56)
== END | disposition home or self-care (01) ==
LOC: MTLAB 09:24
PROVIDERS: PCP Family Medicine; Referring Provider Podiatrist; Visit Provider Podiatrist
DX: B35.1 Tinea unguium (principal)
CPT/HCPCS: 36415; 84450; 84460

== ENCOUNTER → 2024-04-04 | Outpatient (CLI) | payer OTHER, SELFPAY ==
[2024-04-04 12:42] LABS: AST(SGOT) 15 U/L (15-37); Alanine Aminotransfer ALT/SGPT 25 U/L (13-56); Estradiol 66.8 pg/mL; Follicle Stimulating Hormone 11.1 mIU/mL; Luteinizing Hormone 3.4 mIU/mL; Thyroid Stim Hormone (TSH) 0.526 uIU/mL (0.358-3.740)
== END | disposition home or self-care (01) ==
LOC: MTLAB 10:24
PROVIDERS: PCP Family Medicine; Referring Provider Obstetrics & Gynecology; Visit Provider Obstetrics & Gynecology
DX: D55.1 Anemia due to other disorders of glutathione metabolism (principal); N92.6 Irregular menstruation, unspecified
CPT/HCPCS: 36415; 82670; 83001; 83002; 84443; 84450; 84460

== ENCOUNTER → 2024-05-25 | Outpatient (CLI) | payer OTHER, SELFPAY ==
[2024-05-25 09:08] LABS: Hematocrit 43.5 % (37-47); Hemoglobin 14.2 g/dL (12.0-15.0); Mean Corp Hgb Conc 32.6 g/dL (32-36); Mean Corpuscular Hgb 28.6 pg (27.0-32.0); Mean Corpuscular Volume 87.7 fL (81-99); Mean Platelet Vol. 10.3 fl (6.2-12.0); Platelet Count 210 K/mm3 (150-450); RBC Distribution Width CV 11.9 % (11.6-14.6); RBC Distribution Width SD 38.6 fl (35.1-43.9); Red Blood Count 4.96 M/mm3 (4.2-5.4); White Blood Count 4.7 K/mm3 (4.4-11.0)
[2024-05-25 09:41] LABS: Ferritin 88 ng/mL (8-252); Iron 95 ug/dL (50-170); Iron Binding Capacity,Total 320 ug/dL (250-450)
[2024-06-01 11:10] LABS: Testosterone, % Free 1.72 % (0.50-2.80); Testosterone, Free 0.33 ng/dL (0.10-0.85); Testosterone, Total 19 ng/dL (4-50)
== END | disposition home or self-care (01) ==
LOC: LAB 08:31
PROVIDERS: PCP Family Medicine; Referring Provider Obstetrics & Gynecology; Visit Provider Obstetrics & Gynecology
DX: N92.0 Excessive and frequent menstruation with regular cycle (principal); L75.0 Bromhidrosis
CPT/HCPCS: 36415; 82627; 82728; 83540; 83550; 84402; 84403; 85027; 82626

== ENCOUNTER 2025-01-08 16:11 | Outpatient (CLI) | payer OTHER, SELFPAY ==
--- NOTE | 2025-01-08 16:16 | US_ITS ---
PROCEDURE: PELVIC W/ TRANSVAGINAL REASON FOR EXAM: RIGHT ADNEXAL MASS ON EXAM TECHNIQUE: Transabdominal and transvaginal pelvic ultrasound COMPARISON: None FINDINGS: LMP: January 01, 2025 Measurements: Uterus: 8.7 cm x 4.4 cm x 3.6 cm with a volume of 70.94 mL Endometrial Thickness: 5 mm. It is trilaminar in appearance. Nabothian cyst of the cervix. Right Ovary: 2.5 cm x 1.4 cm x 1.2 cm with a volume of 2.52 mL. Left Ovary: 3.2 cm x 2.2 cm x 1.7 cm with a volume of 7.48 mL. TRANSABDOMINAL: Uterus: Normal size, myometrial echotexture, and contour. Endometrium: Unremarkable. Right ovary: Normal size and echotexture. Left ovary: Small follicle seen within the ovary measuring 1.3 cm 1.2 cm 1.1 cm. Other: No large pelvic mass identified. Transvaginal sonography was performed to better visualize the endometrium. TRANSVAGINAL: Uterus: Anteverted. Normal contour and myometrial echotexture. Endometrium: Normal echotexture. Right ovary: Normal size and echotexture. Left ovary: Normal size and echotexture. Small left ovarian follicle. Other adnexal findings: None. Cul-de-sac: No free intraperitoneal fluid identified. Tenderness: No tenderness US/Pelvic w/ Transvaginal IMPRESSION: Small left ovarian follicle. No other abnormality is seen. Reading Location: [place] [id number]
== END 2025-01-08 23:59 | disposition home or self-care (01) ==
PROVIDERS: PCP Family Medicine; Referring Provider Obstetrics & Gynecology; Visit Provider Obstetrics & Gynecology
DX: R10.31 Right lower quadrant pain (principal)
CPT/HCPCS: 76830; 76856

== ENCOUNTER → 2025-01-11 | Outpatient (CLI) | payer OTHER, SELFPAY ==
--- NOTE | 2025-01-11 12:45 | BI_ITS ---
EXAM: SCRN MAMM (CAD)W/SRUTHI BILAT DATE: 01/11/2025 CLINICAL HISTORY: F, Age 44 y/o , SCREENING MAMMOGRAM Grandmother with breast cancer. Bilateral breast implants. BREAST CANCER RISK ASSESSMENT: Not assessed. TECHNIQUE: Bilateral screening digital breast tomosynthesis with 2D and 3D images. Computer aided detection. COMPARISON: Prior exam(s) dated December 28, 2023.. FINDINGS: TISSUE DENSITY: The breast tissue is extremely dense which lowers the sensitivity of mammography. Bilateral Breast Mammographic Findings: No significant masses, calcifications or other abnormalities are identified. Stable appearance of the bilateral breast implants. No suspicious masses, areas of developing architectural distortion, or suspicious calcifications. There has been no significant interval change. BI/SCRN MAMM (CAD)W/SRUTHI BILAT IMPRESSION: OVERALL FINAL ASSESSMENT: BIRADS 2 BENIGN FINDING RECOMMENDATION: Routine annual follow-up in 1 Year A letter with findings and recommendations will be mailed to the patient. Reading Location: [place] [id number]
== END | disposition home or self-care (01) ==
LOC: OPBI 12:43
PROVIDERS: PCP Family Medicine; Referring Provider Obstetrics & Gynecology; Visit Provider Obstetrics & Gynecology
DX: Z12.31 Encounter for screening mammogram for malignant neoplasm of breast (principal); Z80.3 Family history of malignant neoplasm of breast
CPT/HCPCS: 77063; 77067

== ENCOUNTER → 2025-04-13 | Outpatient (CLI) | payer OTHER, SELFPAY ==
--- OUTSIDE RECORDS SUMMARY | 2025-04-13 09:35 | XMS RPT_ITS | CCD ---
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 [facility] Care Team Providers Care Md Allergy Immunology Name Role Phone Unavailable Primary Care Provider Unavailabl e Linden, Abdias A Primary Care Provider [phone] ABBY HOYOS Attending Unavailable CHEATHAM, ABDIAS Primary Care Unavailable SANDRA REYNOLDS Referring Unavailable Unavailable Primary Care Provider Unavailabl e Valencia Ricketts Attending Unavailabl e Vande Valencia Lowe Referring Unavailabl e Cheatham, Abdias Primary Care Unavailable Valencia Ricketts Attending Unavailabl e VandValencia Groves Referring Unavailabl e Cheatham, Abdias Primary Care Unavailable Serjio Singh Consulting Unavailable Ángele Valencia Lowe Attending Unavailabl e Cheatham, Abdias Referring Unavailable Cheatham, Abdias Primary Care Unavailable Cheatham, Abdias Referring Unavailable Cheatham, Abdias Primary Care Unavailable Valencia Ricketts Attending Unavailabl e Serjio Singh Referring Unavailable Cheatham, Abdias Primary Care Unavailable Serjio Singh Attending Unavailable Cheatham, Abdias Primary Care Unavailable Valencia Ricketts Referring Unavailabl e Vande Valencia Lowe Attending Unavailabl e Cheatham, Abdias Primary Care Unavailable Valencia Ricketts Referring Unavailabl e Vande Valencia Lowe Attending Unavailabl e Assessment, Health Risk Attending Unavaila ble Assessment, Health Risk Referring Unavaila ble Cheatham, Abdias Primary Care Unavailable Allergies Allergy Classification Reported Allergen(s) Allergy Type Date of Onset Reaction(s) Facility (4 sources) Amoxicillin-Pot Clavulanate; Translations: [AMOXICILLIN-POT CLAVULANATE] Drug Intolerance 3 [facility] (1 source) Amoxicillin Drug Allergy [facility] (1 source) Latex Drug allergy (disorder) 5 [facility] (1 source) Potassium Drug Allergy [facility] Medications Current Medications Medication Drug Class(es) Dates Sig (Normalized) Sig (Original) benzonatate 100 mg oral capsule (1 source) Non-narcotic Antitussive Start: 09-02-2024 take 2 capsules by mouth every eight hours as needed benzonatate (TESSALON PERLE) 100 mg capsule Take 2 capsules by mouth three times a day as needed. 30 capsule 09/02/2024 Active Famotidine (1 source) Histamine-2 Receptor Antagonist FAMOTIDINE (PEPCID ORAL) Take by mouth as needed. Active levothyroxine sodium 0.075 mg oral tablet (2 sources) l-Thyroxine Start: 07-30-2023 take 1 tablet by mouth once daily before breakfast levothyroxine (Synthroid, Levoxyl) 75 MCG tablet Take 75 mcg by mouth every morning (before breakfast). 0 07/30/2023 Active Ondansetron (1 source) Serotonin-3 Receptor Antagonist ONDANSETRON HCL (ZOFRAN ORAL) Take by mouth as needed. Active oseltamivir 75 mg oral capsule (1 source) Neuraminidase Inhibitor Start: 09-02-2024 End: 09-07-2024 take 1 capsule by mouth twice daily oseltamivir (TAMIFLU) 75 mg capsule Take 1 capsule by mouth two times a day for 5 days. 10 capsule 09/02/2024 09/07/2024 Active Trulicity 3 MG/0.5ML solution pen-injector (1 source) Start: 07-30-2023 inject 3 mg by subcutaneous injection every week Trulicity 3 MG/0.5ML solution pen-injector Inject 3 mg under the skin 1 (one) time per week. 0 07/30/2023 Active 24 hr venlafaxine 75 mg extended release oral capsule (1 source) Serotonin and Norepinephrine Reuptake Inhibitor Start: 09-26-2023 take 1 capsule by mouth once daily venlafaxine XR (Effexor XR) 75 MG 24 hr capsule Take 75 mg by mouth daily. 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] Onset: 04-20-2024 Chronic Influenza (1 source) Influenza due to Influenza A virus; Translations: [Influenza due to other identified influenza virus with other respiratory manifestations] 09-02-2024 Episodic Menstrual disorders (1 source) Excessive and frequent menstruation with regular cycle; Translations: [Excessive and frequent menstruation with regular cycle] Onset: 06-18-2024 Chronic Other connective tissue disease (1 source) Cramp; Translations: [Cramp and spasm] 11-03-2023 Episodic Other screening for suspected conditions (not mental disorders or infectious disease) (1 source) Encounter for screening mammogram for malignant neoplasm of breast; Translations: [Encounter for screening mammogram for malignant neoplasm of breast] Onset: 01-17-2025 Episodic Other upper respiratory infections (1 source) Upper respiratory infection; Translations: [Acute upper respiratory infection, unspecified] 09-02-2024 Episodic Residual codes; unclassified (1 source) Viral syndrome; Translations: [Other general symptoms and signs] 09-02-2024 Episodic Unclassified (2 sources) New Patient; Translations: [New Patient] Onset: 11-01-2023 Past or Other Problems Problem Classification Problem Date Documented Da te Episodic/Chronic Mycoses (1 source) Tinea unguium; Translations: [Tinea unguium] Onset: 01-30-2024 Episodic Other skin disorders (1 source) Bromhidrosis; Translations: [Bromhidrosis] Onset: 05-07-2024 Episodic Results Test Name Value Interpretation Reference Range Facility SCRN MAMM (CAD)W/SRUTHI BILATo n 01-11-2025 SCRN MAMM (CAD)W/SRUTHI BILAT [facility] Imaging Services [address] [place], [place] [id number] SCRN MAMM (CAD)W/SRUTHI BILAT MR#: [id number] Acct: [id number] Name: AMISH CUETO Rep #: [id number] : 1980 F 44 From: Javier rivera MD PCP: Dr. Abdias Cheatham MD Status: [facility] CLI Study: SCRN MAMM (CAD)W/SRUTHI BILAT Date of Exam: 12/15 Exam# [id number] Ordering Dr: Valencia Ricketts DO EXAM: SCRN MAMM (CAD)W/SRUTHI BILAT DATE: 01/11/2025 CLINICAL HISTORY: F, Age 44 y/o , SCREENING MAMMOGRAM Grandmother with breast cancer. Bilateral breast implants. BREAST CANCER RISK ASSESSMENT: Not assessed. TECHNIQUE: Bilateral screening digital breast tomosynthesis with 2D and 3D images. Computer aided detection. COMPARISON: Prior exam(s) dated December 28, 2023.. FINDINGS: TISSUE DENSITY: The breast tissue is extremely dense which lowers the sensitivity of mammography. Bilateral Breast Mammographic Findings: No significant masses, calcifications or other abnormalities are identified. Stable appearance of the bilateral breast implants. No suspicious masses, areas of developing architectural distortion, or suspicious calcifications. There has been no significant interval change. BI/SCRN MAMM (CAD)W/SRUTHI BILAT IMPRESSION: OVERALL FINAL ASSESSMENT: BIRADS 2 BENIGN FINDING RECOMMENDATION: Routine annual follow-up in 1 Year A letter with findings and recommendations will be mailed to the patient. Reading Location: [place] [address] CC: Dr. Abdias Cheatham MD; Dr. Valencia Ricketts DO Rail Transportation Operator: Signed [facility] Pelvic w/ Transvaginalon Pelvic w/ Transvaginal [facility] Imaging Services [address] [place] [id number] Pelvic w/ Transvaginal MR#: [id number] Acct: [id number] Name: AMISH CUETO Rep #: [id number] : 1980 F 44 From: Javier rivera MD PCP: Dr. Abdias Cheatham MD Status: REG CLI Study: Pelvic w/ Transvaginal Date of Exam: 01/08/25 Exam# [id number] Ordering Dr: Valencia Ricketts DO PROCEDURE: PELVIC W/ TRANSVAGINAL REASON FOR EXAM: RIGHT ADNEXAL MASS ON EXAM TECHNIQUE: Transabdominal and transvaginal pelvic ultrasound COMPARISON: None FINDINGS: LMP: January 01, 2025 Measurements: Uterus: 8.7 cm x 4.4 cm x 3.6 cm with a volume of 70.94 mL Endometrial Thickness: 5 mm. It is trilaminar in appearance. Nabothian cyst of the cervix. Right Ovary: 2.5 cm x 1.4 cm x 1.2 cm with a volume of 2.52 mL. Left Ovary: 3.2 cm x 2.2 cm x 1.7 cm with a volume of 7.48 mL. TRANSABDOMINAL: Uterus: Normal size, myometrial echotexture, and contour. Endometrium: Unremarkable. Right ovary: Normal size and echotexture. Left ovary: Small follicle seen within the ovary measuring 1.3 cm 1.2 cm 1.1 cm. Other: No large pelvic mass identified. Transvaginal sonography was performed to better visualize the endometrium. TRANSVAGINAL: Uterus: Anteverted. Normal contour and myometrial echotexture. Endometrium: Normal echotexture. Right ovary: Normal size and echotexture. Left ovary: Normal size and echotexture. Small left ovarian follicle. Other adnexal findings: None. Cul-de-sac: No free intraperitoneal fluid identified. Tenderness: No tenderness US/Pelvic w/ Transvaginal IMPRESSION: Small left ovarian follicle. No other abnormality is seen. Reading Location: [place] [address] CC: Dr. Abdias Cheatham MD; Dr. Valencia Ricketts DO Rail Transportation Operator: Signed [facility] Bung Sewer Office Visit Reporton 01-04-2025 Bung [facility]er Office Visit Report [facility] [address], [address] [place] [address] OFFICE VISIT Date of Service: 01/04/25 MR#: [id number] Acct: [id number] Name: AMISH CUETO Rep #: [id number] : 1980 Provider: Dr. Valencia Mendez DO Age/Sex: 44/F Location: 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 Is patient in pain?: No Allergies amoxicillin trihydrate (From Augmentin) Allergy (Verified 01/04/25 09:32) Hives latex Allergy (Verified 01/04/25 09:32) Rash potassium clavulanate (From Augmentin) Allergy (Verified 01/04/25 09:32) Hives Medications ???Medication ???Instructions ???Recorded ???Confirmed ???Type levothyroxine 200 mcg tablet 75 mcg PO DAILY 09/01/17 01/04/25 History (Synthroid) venlafaxine 37.5 mg 37.5 mg PO QDAY 05/07/24 01/04/25 History capsule,extended release 24 hr (Effexor XR) dulaglutide 1.5 mg/0.5 mL 3 mg subcut QWEEK 01/04/25 5 History subcutaneous pen injector (Trulicity) Post menopausal: No Patient : No : No PFSH Medical History Depression Non-smoker Leg cramps History of echocardiogram Generalized anxiety disorder Major depressive disorder, recurrent severe without psychotic features Back pain Neck pain Thyroid disease Surgical History Status post laparoscopy H/O breast implant Family History Grandmother Breast cancer Thyroid disorder Aunt Diabetes Father Thyroid disorder Social History (Updated 01/04/25 @ 09:39 by Crystal Pulido) adopted: No household members: children number of children: 1 current occupational exposures/hazards: No pets and animals: Yes history of recent travel: Yes ([place]) out of state: Yes out of country: No sexually active: No Smoking Status: Never smoker second hand exposure: No alcohol intake: never substance use type: does not use what type of physical activity do you participate in: weight training frequency: 3-4 times per week seatbelt use: always do you feel safe at home: Yes History Elective abortions Hx Para 0 Spontaneous abortions Hx # Term Pregnancies Ectopic pregnancies Hx # Pregnancies Multiple births # of living children Past Pregnancies Del. Date Name GA/Weeks Outcome Route Bth Weight [facility] Unknown [place] 2012 HPI Encounter for routine gynecological examination Details: AMISH CUETO is a 44 year old who presents for annual exam. has discomfort prior to menses on her right lower side Last PAP: 12/09/23 History of abnormal PAP: no Last mammogram: 12/28/23 History of abnormal mammogram: no, has implants Colon cancer screening: due next year Other preventative health care screenings: up to date, followed by Abdias Cheatham Female Reproductive History Cycle Length: 21-35 Bleeding Duration: 5 Questions: metorrhagia: No, sexually active: Yes, dyspareunia: No and PCB: No Menopausal Symptoms: No hot flashes, No night sweats, No weight change, No mood changes, No difficulty concentrating, No sleep problems and No change in libido ROS Const Constitutional: Reports as per HPI; Denies fatigue, increased appetite, poor appetite, night sweats, weight gain or weight loss Cardio Card: Denies chest pain Resp Resp: Denies cough or dyspnea GI GI: Reports as per HPI; Denies abdominal pain, bloating, constipation, nausea or vomiting : Reports as per HPI and other; Denies difficulty voiding, dysuria, hematuria, hot flashes, nipple discharge, pelvic pain, prolapse symptoms, urinary frequency, urinary incontinence, urinary urgency, vaginal discharge, vaginal d ryness, vaginal odor or vaginal pruritus Skin Skin/Breast: Denies changing lesions, breast mass, breast pain, breast skin changes or nipple discharge Psych Psych: Denies anxiety, change in libido, depression or difficulty concentrating Exam Const General: cooperative, healthy appearing, comfortable, no acute distress, well developed and well groomed HENIN Head: normal to inspection and normocephalic Ears: hearing grossly normal bilaterally and external ears normal Nose: external nose normal Face and sinus: normal facial exam Neck Neck: normal visual inspection, full ROM and no lymphadenopathy Thyroid: thyroid normal Chest Chest palpation inspection: normal inspection of the chest Breast inspection: normal (more content not included)... [facility] CNOVon 09-02-2024 CNOV Office Visit (UCWSTR ) AMISH CUETO ([id number]) 1980 F Date Time Provider Department 09/02/24 9:30 AM SARAH CRUMMARISELA During your visit today, we recorded the following information about you: Temperature Pulse Respiration Blood pressure 98.6 degrees 110/minute 20/minute 126/88 Weight Last Period 64 kg 08/19/24 Sarah Crum, MISAEL.SENIOR ADVISOR 09/02/2024 10:11 AM Signed Subjective The history is provided by the patient. No manganese breaker was used. HPI Amish Cueto is a 43 year old female who presents today for CC of flu like symptoms - fever, chills, body aches, cough, congestion, ear pressure, and runny nose for 2 days. She has used Ibuprofen and mucinex with little relief. 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 BP 126/88 Pulse 110 Temp 37 ?C (98.6 ?F) Resp 20 Wt 64 kg (141 lb 1.5 oz) LMP 08/19/2024 (Exact Date) SpO2 98% Social History Tobacco Use Smoking status: Never History reviewed. No pertinent past medical history. I have confirmed and edited as necessary, the [facility] Review of Systems Constitutional: Positive for chills, fever and malaise/fatigue. HENT: Positive for congestion, ear pain, sinus pain and sore throat. Respiratory: Positive for cough. Negative for sputum production, shortness of breath and wheezing. Cardiovascular: Negative for chest pain. Gastrointestinal: Negative for abdominal pain, diarrhea, nausea and vomiting. Musculoskeletal: Positive for myalgias. Neurological: Negative for headaches. Objective Physical Exam Vitals and nursing note reviewed. HENT: Head: Normocephalic and atraumatic. Right Ear: Ear canal and external ear normal. A middle ear effusion (clear) is present. Tympanic membrane is bulging. Left Ear: Ear canal and external ear normal. A middle ear effusion (clear) is present. Tympanic membrane is bulging. Nose: Mucosal edema, congestion and rhinorrhea present. Right Sinus: No maxillary sinus tenderness or frontal sinus tenderness. Left Sinus: No maxillary sinus tenderness or frontal sinus tenderness. Mouth/Throat: Pharynx: Uvula midline. Posterior oropharyngeal erythema (mild) and postnasal drip present. No oropharyngeal exudate. Cardiovascular: Rate and Rhythm: Normal rate and regular rhythm. Heart sounds: Normal heart sounds. Pulmonary: Effort: Pulmonary effort is normal. Breath sounds: Normal breath sounds. Lymphadenopathy: Head: Right side of head: No submental, submandibular or tonsillar adenopathy. Left side of head: No submental, submandibular or tonsillar adenopathy. Cervical: No cervical adenopathy. Skin: General: Skin is warm and dry. Neurological: Mental Status: She is alert. Psychiatric: Mood and Affect: Affect normal. ASSESSMENT/PLAN: 1. Flu-like symptoms - ICD9: 780.99, ICD10: R68.89 (primary diagnosis) Home isolation until fever free Testing ordered Comfort measures discussed - see patient instructions. When to seek higher level of care Notified in 12-24 hours with results, [facility] - COVID AND INFLUENZA A/B AND RSV PCR, ROUTINE - INFLUENZA AANDB MOLECULAR (POC) 2. URI with cough and congestion - ICD9: 465.9, ICD10: J06.9 - Discussed viral etiology and rationale for treatment. - Symptomatic treatment with prn analgesia - Supportive care with fluids and rest - The patient may also use OTC cough and cold meds as needed and warm salt water gargles, throat lozenges and/or OTC throat spray as needed. - Follow up in one week if symptoms persist or sooner if worsening of symptoms - COVID AND INFLUENZA A/B AND RSV PCR, ROUTINE 3. Influenza A - ICD9: 487.1, ICD10: J10.1 Started on Tamiflu today, side effects discussed Follow up with PCP prn Diagnosis and treatment plan were discussed and questions were answered to the patient's satisfaction. Pt acknowledged understanding of concepts and follow up plan. Specific signs and symptoms that would indicate the need for higher level of care were discussed in detail warranting prompt ER evaluation. Sarah Crum APRN.Sarah Montoya APRN.LIU 09/02/2024 10:02 AM Signed covid and influenza test ordered You will be notified in 12-24 hours, results available on MyChart Home isolation until fever free for 24 hours without tylenol or ibuprofen. Rest, increase water intake Motrin or Tylenol as needed for fever or pain. Salt water gargles, chloraseptic spray or lozenges as needed for sore throat. Warm beverages, honey. Nasal saline spray as needed Cool mist humidifier at night Tylenol (generic acetaminophen) 500 mg-2 tabs every 8 hrs. as needed for fever and aches Ibuprofen 600 mg (3-200mg tablets) every 6 hours -Sudafed (generic is fine), behind the counter, 2x30 mg tabs twice daily as needed for congestion -Mucinex (generic is fine) Guaifenesin 1200 mg twice daily to help with cough and to thin out (more content not included)... Normal [facility] COVID AND INFLUENZA A/B AND RSV PCR, ROUTINEon 09-02-2024 SARS-CoV-2 (COVID-19) RNA JORJE+probe Ql (Unsp spec) SARS-COV-2 (AGENT OF COVID-19) RNA: Not detected INFLUENZA A RNA: Detected INFLUENZA B RNA: Not detected RESPIRATORY SYNCYTIAL VIRUS (RSV) RNA: Not detected Abnormal [facility] Comment on above: Performed By: #### C VFS #### [facility] CLIA [id number] [address] [place] [address] [place] INFLUENZA A&B MOLECULAR (POC )on 09-02-2024 Flu A (POCT) Positive Abnormal Negative [facility] Comment on above: Location:[address], [place], [address] Interpretation and review of laboratory results Abnormal [facility] Procedural Control Valid [facility] Location:[address] POINT OF CARE [facility] DHEA Sulfateon 06-01-2024 DHEA SULFATE 204.0 ug/dL Normal 57.3-279.2 [facility] Comment on above: Order Comment: NN Result Comment: Perf ormed at: - [facility] [address] [id number] Locomotive Crane Operator Helper: Yuriy Peralta PhD, Phone: [phone] Performed at: - [address] [id number] Locomotive Crane Operator Helper: Dyan Temple MD, Phone: [phone] Performed By: #### L 501.4405, L501.4100 #### [facility] [address] [place], [address] Testosterone, Total / Freeon 06-01-2024 TESTOSTER,FREE 0.33 ng/dL Normal 0.10-0.85 [facility] Comment on above: Order Comment: NN Performed By: #### L 501.4405, L501.4100 #### [facility] [address] [place], [address] TESTOSTER,TOTAL 19 ng/dL Normal 4-50 [facility] Comment on above: Order Comment: NN Performed By: #### L 501.4405, L501.4100 #### [facility] [address] [place], [address] TESTOSTERONE,%F 1.72 Normal 0.50-2.80 [facility] Comment on above: Order Comment: NN Performed By: #### L 501.4405, L501.4100 #### [facility] [address] [place], [address] CBC, Employeeon 05-25-2024 Absolute Lymph 1.30 X10 3/uL Normal 0.83-4.51 [facility] Comment on above: Performed By: #### L 501.4405, L501.4100 #### [facility] [address] [place], [address] Absolute Neut 2.7 X10 3/uL Normal 2.0-7.7 [facility] Comment on above: Performed By: #### L 501.4405, L501.4100 #### [facility] [address] [place], [address] Basophils/100 WBC (Bld) 0.7 % Normal 0-1 [facility] Comment on above: Performed By: #### L 501.4405, L501.4100 #### [facility] [address] [place], [address] Eosinophils/100 WBC (Bld) 4.3 % Normal 0-5 [facility] Comment on above: Performed By: #### L 501.4405, L501.4100 #### [facility] [address] [place], [address] Erythrocyte distribution width (RBC) [Ratio] 12.0 % Normal 11.6-14.6 [facility] Comment on above: Performed By: #### L 501.4405, L501.4100 #### [facility] [address] [place], [address] Hematocrit (Bld) [Volume fraction] 43.4 % Normal 37-47 [facility] Comment on above: Performed By: #### L 501.4405, L501.4100 #### [facility] [address] [place], [address] Hemoglobin (Bld) [Mass/Vol] 14.1 g/dL Normal 12.0-15.0 [facility] Comment on above: Performed By: #### L 501.4405, L501.4100 #### [facility] [address] [place], [address] Lymphocytes/100 WBC (Bld) 28.2 % Normal 19-41 [facility] Comment on above: Performed By: #### L 501.4405, L501.4100 #### [facility] [address] [place], [address] MCH (RBC) [Entitic mass] 28.6 pg Normal 27.0-32.0 [facility] Comment on above: Performed By: #### L 501.4405, L501.4100 #### [facility] [address] [place], [address] MCHC (RBC) [Mass/Vol] 32.5 g/dL Normal 32-36 [facility] Comment on above: Performed By: #### L 501.4405, L501.4100 #### [facility] [address] [place], [address] MCV (RBC) [Entitic vol] 88.0 fL Normal 81-99 [facility] Comment on above: Performed By: #### L 501.4405, L501.4100 #### [facility] [address] [place], [address] Monocytes/100 WBC (Bld) 7.6 % Normal 0-10 [facility] Comment on above: Performed By: #### L 501.4405, L501.4100 #### [facility] [address] [place], [address] Neutrophils/100 WBC (Bld) 59.0 % Normal 47-70 [facility] Comment on above: Performed By: #### L 501.4405, L501.4100 #### [facility] [address] [place], [address] NRBC # 0.00 10 3/uL Normal 0-5 [facility] Comment on above: Performed By: #### L 501.4405, L501.4100 #### [facility] [address] [place], [address] Nucleated RBC (Bld) [#/Vol] 0 10*3/uL Normal 0-5 [facility] Comment on above: Performed By: #### L 501.4405, L501.4100 #### [facility] [address] [place], [address] Platelet mean volume (Bld) [Entitic vol] 10.4 fL Normal 6.2-12.0 [facility] Comment on above: Performed By: #### L 501.4405, L501.4100 #### [facility] [address] [place], [address] Platelets (Bld) [#/Vol] 212 10*3/uL Normal 150-450 [facility] Comment on above: Performed By: #### L 501.4405, L501.4100 #### [facility] [address] [place], [address] RBC (Bld) [#/Vol] 4.93 10*6/uL Normal 4.2-5.4 [facility] Comment on above: Performed By: #### L 501.4405, L501.4100 #### [facility] [address] [place], [address] RDW SD 38.8 fl Normal 35.1-43.9 [facility] Comment on above: Performed By: #### L 501.4405, L501.4100 #### [facility] [address] [place], [address] WBC (Bld) [#/Vol] 4.6 10*3/uL Normal 4.4-11.0 [facility] Comment on above: Performed By: #### L 501.4405, L501.4100 #### [facility] [address] [place], [address] CBC-Complete Blood Cnt No Di ffon 05-25-2024 Erythrocyte distribution width (RBC) [Ratio] 11.9 % Normal 11.6-14.6 [facility] Comment on above: Performed By: #### L 501.4405, L501.4100 #### [facility] [address] [place], [address] Hematocrit (Bld) [Volume fraction] 43.5 % Normal 37-47 [facility] Comment on above: Performed By: #### L 501.4405, L501.4100 #### [facility] [address] [place], [address] Hemoglobin (Bld) [Mass/Vol] 14.2 g/dL Normal 12.0-15.0 [facility] Comment on above: Performed By: #### L 501.4405, L501.4100 #### [facility] [address] [place], [address] MCH (RBC) [Entitic mass] 28.6 pg Normal 27.0-32.0 [facility] Comment on above: Performed By: #### L 501.4405, L501.4100 #### [facility] [address] [place], [address] MCHC (RBC) [Mass/Vol] 32.6 g/dL Normal 32-36 [facility] Comment on above: Performed By: #### L 501.4405, L501.4100 #### [facility] [address] [place], [address] MCV (RBC) [Entitic vol] 87.7 fL Normal 81-99 [facility] Comment on above: Performed By: #### L 501.4405, L501.4100 #### [facility] [address] [place], [address] Platelet mean volume (Bld) [Entitic vol] 10.3 fL Normal 6.2-12.0 [facility] Comment on above: Performed By: #### L 501.4405, L501.4100 #### [facility] [address] [place], [address] Platelets (Bld) [#/Vol] 210 10*3/uL Normal 150-450 [facility] Comment on above: Performed By: #### L 501.4405, L501.4100 #### [facility] [address] [place], [address] RBC (Bld) [#/Vol] 4.96 10*6/uL Normal 4.2-5.4 [facility] Comment on above: Performed By: #### L 501.4405, L501.4100 #### [facility] [address] [place], [address] RDW SD 38.6 fl Normal 35.1-43.9 [facility] Comment on above: Performed By: #### L 501.4405, L501.4100 #### [facility] [address] [place], [address] WBC (Bld) [#/Vol] 4.7 10*3/uL Normal 4.4-11.0 [facility] Comment on above: Performed By: #### L 501.4405, L501.4100 #### [facility] [address] [place], [address] Employee Profileon 4 Albumin [Mass/Vol] 4.2 g/dL Normal 3.2-5.0 [facility] Comment on above: Performed By: #### L 501.4405, L501.4100 #### [facility] [address] [place], [address] Albumin/Globulin [Mass ratio] 1.2 {ratio} Normal 0.9-2.4 [facility] Comment on above: Performed By: #### L 501.4405, L501.4100 #### [facility] [address] [place], [address] ALK P 46 U/L Normal 45-117 [facility] Comment on above: Performed By: #### L 501.4405, L501.4100 #### [facility] [address] [place], [address] ALT [Catalytic activity/Vol] 37 U/L Normal 13-56 [facility] Comment on above: Performed By: #### L 501.4405, L501.4100 #### [facility] [address] [place], [address] AST [Catalytic activity/Vol] 21 U/L Normal 15-37 [facility] Comment on above: Performed By: #### L 501.4405, L501.4100 #### [facility] [address] [place], [address] Bilirubin [Mass/Vol] 0.50 mg/dL Normal 0.20-1.00 [facility] Comment on above: Result Comment: For patients on eltrombopag therapy, use of Dimension [place] TBIL is not recommended. Performed By: #### L 501.4405, L501.4100 #### [facility] [address] [place], [address] Bilirubin.direct [Mass/Vol] 0.14 mg/dL Normal 0.00-0.30 [facility] Comment on above: Performed By: #### L 501.4405, L501.4100 #### [facility] [address] [place], [address] BUN/CRE 15.1 RATIO Normal 10-20 [facility] Comment on above: Performed By: #### L 501.4405, L501.4100 #### [facility] [address] [place], [address] CA,Total 8.9 mg/dL Normal 8.5-10.1 [facility] Comment on above: Performed By: #### L 501.4405, L501.4100 #### [facility] [address] [place], [address] Chloride [Moles/Vol] 106 mmol/L Normal 98-107 [facility] Comment on above: Performed By: #### L 501.4405, L501.4100 #### [facility] [address] [place], [address] CHOL:HDL 2.00 Normal [facility] Comment on above: Performed By: #### L 501.4405, L501.4100 #### [facility] [address] [place], [address] Cholesterol [Mass/Vol] 189 mg/dL Normal 200 [facility] Comment on above: Result Comment: <200 mg/dL Desirable 200-240 mg/dL Borderline >240 mg/dL High Risk Performed By: #### L 501.4405, L501.4100 #### [facility] [address] [place], [address] Cholesterol in HDL [Mass/Vol] 96 mg/dL Normal [facility] Comment on above: Result Comment: The drugs N-Acetylcysteine and Metamizole may falsely depress this assay. Reference Range HDL <40 mg/dL Low HDL Cholesterol HDL >or= 60 mg/dL High HDL Cholesterol Performed By: #### L 501.4405, L501.4100 #### [facility] [address] [place], [address] Cholesterol in LDL [Mass/Vol] 84 mg/dL Normal 0-130 [facility] Comment on above: Performed By: #### L 501.4405, L501.4100 #### [facility] [address] [place], [address] Cholesterol in VLDL [Mass/Vol] 9 mg/dL Normal 5-40 [facility] Comment on above: Performed By: #### L 501.4405, L501.4100 #### [facility] [address] [place], [address] CO2 [Moles/Vol] 28.0 mmol/L Normal 21.0-32.0 [facility] Comment on above: Performed By: #### L 501.4405, L501.4100 #### [facility] [address] [place], [address] Creatinine [Mass/Vol] 1.00 mg/dL Normal 0.55-1.02 [facility] Comment on above: Result Comment: The validity of the calculated GFR GFRAA in patients over 70 years has not been determined. Clinical correlation is essential. Performed By: #### L 501.4405, L501.4100 #### [facility] [address] [place], [address] EST GFR - AA 78 mL/min Normal >60 [facility] Comment on above: Result Comment: Afri can Nepalese GFR Calc Performed By: #### L 501.4405, L501.4100 #### [facility] [address] [place], [address] GAP 4 Low 5-15 [facility] Comment on above: Performed By: #### L 501.4405, L501.4100 #### [facility] [address] [place], [address] GFR/1.73 sq M.predicted among non-blacks MDRD (S/P/Bld) [Vol rate/Area] 65 mL/min/{1.73_m2} Normal >60 [facility] Comment on above: Result Comment: Non- GFR Calc Performed By: #### L 501.4405, L501.4100 #### [facility] [address] [place], [address] Globulin (S) [Mass/Vol] 3.5 g/dL Normal 2.2-4.2 [facility] Comment on above: Performed By: #### L 501.4405, L501.4100 #### [facility] [address] [place], [address] Glucose [Mass/Vol] 82 mg/dL Normal 74-106 [facility] Comment on above: Performed By: #### L 501.4405, L501.4100 #### [facility] [address] [place], [address] LDH 194 U/L Normal 84-246 [facility] Comment on above: Performed By: #### L 501.4405, L501.4100 #### [facility] [address] [place], [address] Phosphate [Mass/Vol] 3.1 mg/dL Normal 2.5-4.9 [facility] Comment on above: Performed By: #### L 501.4405, L501.4100 #### [facility] [address] [place], [address] Potassium [Moles/Vol] 4.6 mmol/L Normal 3.5-5.1 [facility] Comment on above: Performed By: #### L 501.4405, L501.4100 #### [facility] [address] [place], [address] Sodium [Moles/Vol] 139 mmol/L Normal 136-145 [facility] Comment on above: Performed By: #### L 501.4405, L501.4100 #### [facility] [address] [place], [address] T PROT 7.7 g/dL Normal 6.4-8.2 [facility] Comment on above: Performed By: #### L 501.4405, L501.4100 #### [facility] [address] [place], [address] Triglyceride [Mass/Vol] 47 mg/dL Normal [facility] Comment on above: Result Comment: The drugs N-Acetylcysteine and Metamizole may falsely depress this assay. Serum Triglycerides Reference Interval Normal <150 mg/dL Borderline high 150 - 199 mg/dL High 200 - 499 mg/dL Very High > or = 500 mg/dL Performed By: #### L 501.4405, L501.4100 #### [facility] [address] [place], [address] Urea nitrogen [Mass/Vol] 15 mg/dL Normal 7-18 [facility] Comment on above: Performed By: #### L 501.4405, L501.4100 #### [facility] [address] [place], [address] URIC 2.9 mg/dL Normal 2.6-6.0 [facility] Comment on above: Result Comment: The drugs N-Acetylcysteine and Metamizole may falsely depress this assay. Performed By: #### L 501.4405, L501.4100 #### [facility] [address] [place], [address] Ferritinon 05-25-2024 Ferritin [Mass/Vol] 88 ng/mL Normal 8-252 [facility] Comment on above: Performed By: #### L 501.4405, L501.4100 #### [facility] [address] [place], [address] Ironon 05-25-2024 Iron [Mass/Vol] 95 ug/dL Normal 50-170 [facility] Comment on above: Performed By: #### L 501.4405, L501.4100 #### [facility] [address] [place], [address] Iron Binding Capacity,Totalo n 05-25-2024 TIBC 320 ug/dL Normal 250-450 [facility] Comment on above: Performed By: #### L 501.4405, L501.4100 #### [facility] [address] [place], [address] [facility] Office Visit Reporton 05-07-2024 [facility] Office Visit Report [facility] [address], [address] [place] [address] OFFICE VISIT Date of Service: 05/07/24 MR#: [id number] Acct: [id number] Name: AMISH CUETO Rep #: [id number] : 1980 Provider: Dr. 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 Required: No Is patient in pain?: No Allergies amoxicillin trihydrate (From Augmentin) Allergy (Verified 05/07/24 13:23) Hives latex Allergy (Verified 05/07/24 13:23) Rash potassium clavulanate (From Augmentin) Allergy (Verified 05/07/24 13:23) Hives Medications ???Medication ???Instructions ???Recorded ???Confirmed ???Type levothyroxine 200 mcg tablet 75 mcg PO DAILY 09/01/17 05/07/24 History (Synthroid) dulaglutide 1.5 mg/0.5 mL 1.5 mg subcut QWEEK 10/05/22 05/07/24 History subcutaneous pen injector (Trulicity) venlafaxine 37.5 mg 37.5 mg PO QDAY 05/07/24 05/07/24 History capsule,extended release 24 hr (Effexor XR) Post menopausal: No Patient : No : No PFSH Medical History Depression Non-smoker Leg cramps History of echocardiogram Generalized anxiety disorder Major depressive disorder, recurrent severe without psychotic features Back pain Neck pain Thyroid disease Surgical History Status post laparoscopy H/O breast implant Family History Grandmother Breast cancer Thyroid disorder Aunt Diabetes Father Thyroid disorder Social History adopted: No household members: children number of children: 1 current occupational exposures/hazards: No pets and animals: Yes history of recent travel: Yes ([place]) out of state: Yes out of country: No sexually active: No Smoking Status: Never smoker second hand exposure: No alcohol intake: never substance use type: does not use what type of physical activity do you participate in: weight training seatbelt use: always do you feel safe at home: Yes HPI Frequent menses Details: AMISH CUETO is a 43 year old who presents for discussion about menses every 14-21 days. She also has the complaint of tachycardia as high as 160's sitting and up to 230 with exercise. Her pcp ordered an echo which was normal but no holter monitor or ekg yet. She would like referral to Dr. Abad. She has noticed other changes such as more body odor and hair on chin. History Elective abortions Hx Para 0 Spontaneous abortions Hx # Term Pregnancies Ectopic pregnancies Hx # Pregnancies Multiple births # of living children Past Pregnancies Del. Date Name GA/Weeks Outcome Route Bth Weight Infant Gen Labor Lgth Anesthesia Del Locatn Provider FOB Unknown Simona 2012 ROS Const ROS Unobtainable: All systems reviewed are unremarkable except as noted in H Resp Resp: Reports system reviewed and no additional complaints, except as documented; Denies cough GI GI: Reports as per HPI Psych Psych: Reports system reviewed and no additional complaints, except as documented Exam Const General: cooperative, healthy appearing, comfortable and no acute distress Resp Effort Inspection: normal respiratory effort Skin General: no rashes or lesions noted Psych Appearance: grossly normal Speech and Movement: speech and movement normal Coding Level of Care Code Off vis,est,level 4 Diagnoses Polymenorrhea N92.0 Body odor L75.0 Assessment and Plan Assessment and Plan (1) Polymenorrhea: Status: Acute (2) Body odor: Status: Acute Plan: will start with some iron studies and hormone evaluation. estradiol and FSH/LH will not be helpful until after menses stops and will not change our plan. She has had her thyroid checked recently. referring to Cardiology. Orders: Orders CBC-Complete Blood Cnt No Diff Today L75.0 - Bromhidrosis, N92.0 - Excessive and frequent menstruation with regular cycle Iron Binding Capacity,Total Today L75.0 - Bromhidrosis, N92.0 - Excessive and frequent menstruation with regular cycle Iron Today L75.0 - Bromhidrosis, N92.0 - Excessive and frequent menstruation with regular cycle Ferritin Today L75.0 - Bromhidrosis, N92.0 - Excessive and frequent menstruation with regular cycle Testosterone, Total / Free Today L75.0 - Bromhidrosis DHEA Sulfate Today L75.0 - Bromhidrosis Plan Details Goals Barriers: Goals Decrease spasm Decrease pain Improve mobility Felix (more content not included)... Normal [facility] AST(SGOT)on 04-04-2024 AST [Catalytic activity/Vol] 15 U/L Normal 15-37 [facility] Comment on above: Performed By: #### L 3300.1750, L501.4100, L501.4405, L3100.5055, L501.9520 #### [facility] [address] [place], [address] Alanine Aminotransferas (SGP T)on 04-04-2024 ALT [Catalytic activity/Vol] 25 U/L Normal 13-56 [facility] Comment on above: Performed By: #### L 3300.1750, L501.4100, L501.4405, L3100.5055, L501.9520 #### [facility] [address] [place], [address] Estradiolon 04-04-2024 ESTRADIOL 66.8 pg/mL Normal [facility] Comment on above: Result Comment: NORM AL REFERENCE RANGES FEMALE FOLLICULAR 21.4 - 164.8 pg/mL MID-CYCLE PEAK 49.9 - 367.2 pg/mL LUTEAL 40.2 - 259.0 pg/mL POST-MENOPAUSAL ON MHT <11.0 - 462.1 pg/mL NOT ON MHT <11.0 - 58.3 pg/mL MALE <11.0 - 52.5 pg/mL NOTE: [facility] HAS CONFIRMED THE DRUG FULVETRANT (FASLODEX) MAY CAUSE FALSELY ELEVATED ESTRADIOL RESULTS WHEN USING THIS TEST METHOD. IF PATIENT IS TAKING FULVESTRANT AN ALTERNATIVE METHOD SHOULD BE USED TO DETERMINE ESTRADIOL CONCENTRATION. Performed By: #### L 501.4405, L501.4100 #### [facility] [address] [place], [place], [address] FSH and LHon 04-04-2024 FSH 11.1 mIU/mL Normal [facility] Comment on above: Result Comment: NORMAL REFERENCE RANGES FEMALE FOLLICULAR 2.3 - 12.6 mIU/mL MID-CYCLE PEAK 5.2 - 17.5 mIU/mL LUTEAL 1.7 - 12.9 mIU/mL POST-MENOPAUSAL ON MHT 5.9 - 72.8 mIU/mL NOT ON MHT 12.7 - 132.2 mlU/mL MALE 0.7 - 10.8 mIU/mL Performed By: #### L 3300.1750, L501.4100, L501.4405, L3100.5055, L501.9520 #### [facility] [address] [place], [address] LH 3.4 mIU/mL Normal [facility] Comment on above: Result Comment: NORMAL REFERENCE RANGES FEMALE FOLLICULAR 1.9 - 26.2 mIU/mL MID-CYCLE PEAK 22.8 - 76.1 mIU/mL LUTEAL 0.6 - 16.6 mIU/mL POST-MENOPAUSAL ON MHT 1.1 - 52.4 mIU/mL NOT ON MHT 8.6 - 61.8 mIU/mL MALE 1.2 - 10.6 mIU/mL Performed By: #### L 3300.1750, L501.4100, L501.4405, L3100.5055, L501.9520 #### [facility] [address] [place], [address] Thyroid Stim Hormone (TSH)on 04-04-2024 TSH 0.526 uIU/mL Normal 0.358-3.740 [facility] Comment on above: Performed By: #### L 3300.1750, L501.4100, L501.4405, L3100.5055, L501.9520 #### [facility] [address] [place], [address] AST(SGOT)on 01-20-2024 AST [Catalytic activity/Vol] 14 U/L Low 15-37 [facility] Comment on above: Performed By: #### L 501.4405, L501.4100 #### [facility] [address] [place], [place], [address] Alanine Aminotransferas (SGP T)on 01-20-2024 ALT [Catalytic activity/Vol] 19 U/L Normal 13-56 [facility] Comment on above: Performed By: #### L 501.4405, L501.4100 #### [facility] [address] [place], [place], [address] Office Visiton 11-01-2023 Follow-up visit [id number] Amish Cueto 1980 F Date Provider Department Center 11/01/2023 ABBY MORRELL [facility] NEURO P None Family History Problem Relation Age of Onset Other Mother's Brother Comments: Shy-drager Syndrome Multiple sclerosis Maternal Cousin Family Status - Relation Status Age at Mother's Brother Alive Maternal Cousin Other Level of Service:42912 [place] OFFICE/OUTPATIENT NEW MODERATE MDM 45 MINUTES Reason for Visit and Comments: New Patient [542] - EMG showed possible mononeuropathy in both feet. Normal [facility] Progress Noteon 11-01-2023 Progress Note Department of Neurological Sciences Initial Consult Note CHIEF COMPLAINT: Chief Complaint Patient presents with New Patient EMG showed possible mononeuropathy in both feet. Reason for Consult: toe spasms HISTORY OF PRESENT ILLNESS: The patient is a 42 y.o. female who presents for evaluation of cramping of her toes. She is unaccompanied for her visit today. She reports that in May of 2023 she began experiencing a severe, painful spasm in her toes bilaterally. She states she will go to bed for the night and as soon as she settles in the bed her toes will spasm. She states this was happening every night at first. The spasm will last 10-15 minutes. She advises that currently the spasms are random for several days at a time and then she will not experience any for a few days. She reports about 3 times a week she will experience the spasms. She has seen a chiropractor and a door attendant. 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 --Reports some mild lower lumbar pain at times, nothing chronic. --Patient also advises of an incidence in May of 2021 where she began smelling cigarette smoke when there was no smoke around her. An MRI of her brain was ordered at the time. This was reported normal. She states she still will randomly experience this still currently. --She denies any history of migraines in her family or with herself. --Patient is positive for anxiety and depression. --There is family history of Shy-drager syndrome and multiple sclerosis. --Patient is a non smoker. She does not drink alcohol currently. Past Medical History: Past Medical History: Diagnosis Date Anxiety Depression Hypothyroidism PCOS (polycystic ovarian syndrome) Prediabetes Past Surgical History: Past Surgical History: Procedure Laterality Date BREAST AUGMENTATION WITH IMPLANT (HISTORICAL) TUBAL LIGATION Medications: Current Outpatient Medications Medication Sig Dispense Refill levothyroxine (Synthroid, Levoxyl) 75 MCG tablet Take 75 mcg by mouth every morning (before breakfast). Trulicity 3 MG/0.5ML solution pen-injector Inject 3 mg under the skin 1 (one) time per week. venlafaxine XR (Effexor XR) 75 MG 24 hr capsule Take 75 mg by mouth daily. No current facility-administered medications for this visit. Allergies: Amoxicillin-pot clavulanate Social History: Social History Socioeconomic History Marital status: Spouse name: Not on file Number of children: Not on file Years of education: Not on file Highest education level: Not on file Occupational History Not on file Tobacco Use Smoking status: Never Smokeless tobacco: Never Vaping Use Vaping Use: Never used Substance and Sexual Activity Alcohol use: Not Currently Drug use: Not Currently Sexual activity: Not on file Other Topics Concern Not on file Social History Narrative Not on file Social Determinants of Health Financial Resource Strain: Not on file Food Insecurity: Not on file Transportation Needs: Not on file Physical Activity: Not on file Stress: Not on file Social Connections: Not on file Intimate Partner Violence: Not on file Housing Stability: Not on file Family History: Family History Problem Relation Name Age of Onset Other Mother's Brother Shy-drager Syndrome Multiple sclerosis Maternal Cousin REVIEW OF SYSTEMS: Review of Systems Constitutional: Negative. HENT: Positive for rhinorrhea. Eyes: Negative. Respiratory: Negative. Cardiovascular: Negative. Gastrointestinal: Positive for nausea. Endocrine: Negative. Genitourinary: Negative. Musculoskeletal: Positive for back pain, myalgias and neck stiffness. Toe cramps Skin: Negative. Allergic/Immunologic: Negative. Neurological: Positive for numbness (positional). Hematological: Bruises/bleeds easily. Psychiatric/Behaviora l: The patient is nervous/anxious. PHYSICAL EXAM: Vitals: BP 93/68 (BP Location: Left arm) Pulse 85 Temp 36.8 ?C (98.2 ?F) (Infrared) Ht 5' 4.5 (1.638 m) Wt 133 lb (60.3 kg) BMI 22.48 kg/m? Physical Exam Constitutional: Appearance: Normal appearance. HENT: Head: Normocephalic and atraumatic. Nose: Nose normal. Mouth/Throat: Mouth: Mucous membranes are moist. Pharynx: Oropharynx is clear. Eyes: General: Vision grossly intact. Gaze aligned appropriately. Extraocular Movements: Extraocular movements intact. Conjunctiva/sclera: Conjunctivae normal. Pupils: Pupils are equal, round, and reactive to light. Neck: Trachea: Trachea and phonation normal. Cardiovascular: Rate and Rhythm: Normal rate and regular rhythm. Pulses: Normal pulses. Heart sounds: Normal heart sounds. Pulmonary: Effort: Pulmonary effort is normal. Breath sounds: Normal breath sounds. Abdominal: General: Abdomen is flat. Bowel sounds are normal. Palpations: Abdomen is s (more content not included)... Normal [facility] 09-09-2023 36 Referral attached. [facility] 09-08-2023 36 Name of caller: Amish Contact phone number: [phone] Relationship to Patient: Patient Provider: Dr Hoyos Practice: Neuro Chief Complaint/Reason for Call: Neuro [facility] did receive patient's Referral via fax - requested to have scanned into patient's Chart so it could be attached to patient's appt with Dr Hoyos on 11-01-2023. Please scan into Chart so it can be attached. Thank you. Best time of day caller can be reached: any Patient advised that office/PCP has 24-48 business hours to return their call: No [facility] 08-31-2023 36 Name of Caller: Amish Contact Reason for Appointment: Amish is having a referral sent to the office. Please call to schedule when referral is received. Office Name: Neurology Medication Refills need, if any: N/A Medication Name: N/A Normal [facility] 36 Name of Caller: Amish Contact Reason for Appointment: Amish is having a referral sent to the office. Please call to schedule when referral is received. Office Name: Neurology Medication Refills need, if any: N/A Medication Name: N/A [facility] Vital Signs Date Time Vital Sign Value Performing Clinician Elisa cui 09-02-2024 09:41-0500 Body temperature 98.6 [degF] Sarah Radames [employer] PROGRAM TECHNICIAN.SENIOR ADVISOR Work Phone: [facility] 09-02-2024 09:41-0500 Body weight 64 kg Sarah Radames [employer] PROGRAM TECHNICIAN.SENIOR ADVISOR Work Phone: [facility] 09-02-2024 09:41-0500 Diastolic blood pressure 88 mm[Hg] Sarah Radames COUNTY PROGRAM TECHNICIAN.SENIOR ADVISOR Work Phone: [facility] 09-02-2024 09:41-0500 Heart rate 110 /min Sarah Radames COUNTY PROGRAM TECHNICIAN.SENIOR ADVISOR Work Phone: [facility] 09-02-2024 09:41-0500 Respiratory rate 20 /min Sarah Radames COUNTY PROGRAM TECHNICIAN.SENIOR ADVISOR Work Phone: [facility] 09-02-2024 09:41-0500 SaO2% (BldA) [Mass fraction] 98 % Sarah Radames COUNTY PROGRAM TECHNICIAN.SENIOR ADVISOR Work Phone: [facility] 09-02-2024 09:41-0500 Systolic blood pressure 126 mm[Hg] Sarah Radames COUNTY PROGRAM TECHNICIAN.SENIOR ADVISOR Work Phone: [facility] 11-01-2023 08:07-0400 Body height 163.8 cm Abby Hoyos MD Work Phone: [facility] 11-01-2023 08:07-0400 Body mass index (BMI) [Ratio] 22.48 kg/m2 Abby Hoyos MD Work Phone: [facility] 11-01-2023 08:07-0400 Body temperature 98.2 [degF] Abby Hoyos MD Work Phone: [facility] 11-01-2023 08:07-0400 Body weight 60.33 kg Abby Hoyos MD Work Phone: [facility] 11-01-2023 08:07-0400 Diastolic blood pressure 68 mm[Hg] Abby Hoyos MD Work Phone: [facility] 11-01-2023 08:07-0400 Heart rate 85 /min Abby Hoyos MD Work Phone: [facility] 11-01-2023 08:07-0400 Systolic blood pressure 93 mm[Hg] Abby Hoyos MD Work Phone: [facility] Encounters Encounter Date Encounter Type Care Provider Facility Start: 01-11-2025 End: 01-11-2025 ambulatory [facility] Facility:[facility] Start: 01-08-2025 End: 01-08-2025 ambulatory [facility] Facility:[facility] Start: 01-04-2025 End: 01-04-2025 ambulatory [facility] Facility:[facility] Start: 09-02-2024 End: 09-02-2024 ambulatory Facility:[facility] Start: 09-02-2024 End: 09-02-2024 Patient encounter procedure Sarah Crum COUNTY PROGRAM TECHNICIAN.SENIOR ADVISOR Work Phone: [facility] Comment on above: Flu-like symptoms (P rimary Dx); URI with cough and congestion; Influenza A Start: 05-25-2024 ambulatory Health Risk Assessment Facility:[facility] Start: 05-25-2024 End: 05-25-20[facility] Start: 05-07-2024 End: 05-07-2024 ambulatory Valencia Kyle Lowe Facility:[facility] Start: 04-04-2024 End: 04-04-2024 ambulatory Valencia Ricketts Facility:[facility] Start: 01-20-2024 End: 01-20-2024 ambulatory Serjio Singh Facility:[facility] Start: 11-01-2023 End: 11-01-2023 ambulatory ABBY HOYOS [facility] Start: 11-01-2023 End: 11-01-2023 Office outpatient new 45 minutes Abby Hoyos MD Work Phone: [facility] Comment on above: Cramp in muscle (Melissa herve Dx) Start: 08-31-2023 Telephone encounter Wei maddox MD Work Phone: [facility] Start: 08-22-2023 Telephone encounter Doug vernon DO Work Phone: [facility] Comment on above: Appointment Request; Appointment; Referral (Please scan Referral received in Chart. ) Procedures Date Procedure Procedure Detail Performing Clinician Start: 09-02-2024 INFLUENZA A&B MOLECU LAR (POC) Sarah Crum APRN.SENIOR ADVISOR Work Phone: Plan of Treatment Date Care Activity Detail Author Start: 2040 RSV Immunization age d 60 or older (1 - 1-dose 60+ series) RSV Immunization aged 60 or older (1 - 1-dose 60+ series) [facility] Start: 2030 Zoster Vaccines (1 o f 2) Zoster Vaccines (1 of 2) [facility] Start: 09-05-2028 DTaP/Tdap/Td Vaccine s (2 - Td or Tdap) DTaP/Tdap/Td Vaccines (2 - Td or Tdap) [facility] Start: 09-05-2028 Urine microalbumin profile DTaP,Tdap,Td Vaccine (2 - Td or Tdap) [facility] Start: 04-15-2024 Covid-19 Vaccine ( season) Covid-19 Vaccine ( season) [facility] Start: 04-15-2023 COVID-19 Vaccine ( season) COVID-19 Vaccine ( season) [facility] Start: 04-15-2023 Influenza vaccination Influenza Vacc ine (#1) [facility] Start: 2020 Screening for malign ant neoplasm of breast [facility] Start: 2010 Screening for malign ant neoplasm of cervix [facility] Start: 07-16-2009 MMR Vaccines (1 of 1 - Standard series) MMR Vaccines (1 of 1 - Standard series) [facility] Start: 07-16-2009 Varicella vaccination Varicell a Vaccines (1 of 2 - 13+ 2-dose series) [facility] Start: 2001 Screening for malign ant neoplasm of cervix [facility] Start: 11-18-1999 DTaP/Tdap/Td Vaccine s (1 - Tdap) DTaP/Tdap/Td Vaccines (1 - Tdap) [facility] Start: 11-18-1999 Hepatitis B Vaccine (1 of 3 - 19+ 3-dose series) Hepatitis B Vaccine (1 of 3 - 19+ 3-dose series) [facility] Start: 11-18-1999 Hepatitis B Vaccines (1 of 3 - 19+ 3-dose series) Hepatitis B Vaccines (1 of 3 - 19+ 3-dose series) [facility] Start: 1998 Anxiety Screening Anxiety Screening [facility] Start: 1998 Depression Screening Depression Scre ening [facility] Start: 1998 Hepatitis C screening Hepatitis C Sc reening [facility] Start: 1998 HIV screening HIV Screening [facility] Start: 1992 Depression Screening Depression Scre ening [facility] Start: 1981 MMR Vaccines (1 of 1 - Standard series) MMR Vaccines (1 of 1 - Standard series) [facility] Start: 1981 Varicella vaccination Varicell a Vaccines (1 of 2 - 2-dose childhood series) [facility] Start: 05-19-1981 COVID-19 Vaccine (#1) COVID-19 Vacci ne (#1) [facility] Start: 1980 Hepatitis B Vaccines (1 of 3 - 3-dose series) Hepatitis B Vaccines (1 of 3 - 3-dose series) [facility] Start: 1980 HIV screening HIV Screening [facility] Start: 1980 Thyroid stimulating hormone measurement TSH Level [facility] COVID & INFLUENZA A/ B & RSV PCR, ROUTINE COVID & INFLUENZA A/B & RSV PCR, ROUTINE Microbiology Routine Flu-like symptoms URI with cough and congestion Ordered: 09/02/2024 [facility] Work Phone: Comment on above: Ordered: 09/02/2024 Payers Date Payer Category Payer Self-pay 2023 Private Health Insurance KAREN PATTERSON [id number] 2023-Present [address] [place] [id number] Commercial [id number] 2023 Private Health Insurance [id number] 2016 Unknown MMO MMO MHS [id number] 2016-Present [phone] [address] [place] [address] Indemnity [id number] 2016 Unknown [id number] Unknown [id number] Unknown [id number] Unknown [id number] Unknown [id number] Unknown [id number] Unknown [id number] Unknown [id number] Unknown [id number] Social History Date Type Detail [facility] Start: 1980 Sex Assigned At Not on file [facility] Start: 11-01-2023 End: 09-02-2024 Gender identity Not on file [facility] Start: 11-01-2023 End: 09-02-2024 History of Social function [facility] Start: 05-20-2013 End: 11-01-2023 Tobacco smoking status NHIS Never smoked tobacco [facility] Start: 11-01-2023 Tobacco use and exposure Smokeless t obacco non-user [facility] Start: 11-01-2023 Alcohol intake Ex-drinker (finding) [facility] Start: 09-02-2024 Alcoholic beverage intake Not Asked [facility] Clinical Notes 08-22-2023 to 09-02-2024 Patient InstructionsSarah Crum APRN.LIU - 09/02/2024 9:42 AM ESTAbby Hoyos MD - 11/01/2023 8:00 AM EDTTelephone Encounter - Dara MezaASHUTOSH - 09/09/2023 9:01 AM EST Note Date & Type Note Facility 09-02-2024 Instructions Sarah Crum APRN.CNP - 09/02/2024 10:02 AM EST covid and influenza test ordered You will be notified in 12-24 hours, results available on [facility] Home isolation until fever free for 24 hours without tylenol or ibuprofen. Rest, increase water intake Motrin or Tylenol as needed for fever or pain. Salt water gargles, chloraseptic spray or lozenges as needed for sore throat. Warm beverages, honey. Nasal saline spray as needed Cool mist humidifier at night Tylenol (generic acetaminophen) 500 mg-2 tabs every 8 hrs. as needed for fever and aches Ibuprofen 600 mg (3-200mg tablets) every 6 hours -Sudafed (generic is fine), behind the counter, 2x30 mg tabs twice daily as needed for congestion -Mucinex (generic is fine) Guaifenesin 1200 mg twice daily to help with cough and to thin out mucus * Seek medical care immediately, call 911, go to ER if you have chest pain, difficulty breathing, shortness of breath, inability to swallow. documented in this encounter [facility] 09-02-2024 Note HNO ID: [id number] Author: SARAH RCUM APRN.CNP Service: ? Author Type: Nurse Practitioner Type: Progress Notes Filed: 09/02/2024 10:11 Note Text: Subjective The history is provided by the patient. No manganese breaker was used. MIYA Cueto is a 43 year old female who presents today for CC of flu like symptoms - fever, chills, body aches, cough, congestion, ear pressure, and runny nose for 2 days. She has used Ibuprofen and mucinex with little relief. 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 BP 126/88 Pulse 110 Temp 37 ?C (98.6 ?F) Resp 20 Wt 64 kg (141 lb 1.5 oz) LMP 08/19/2024 (Exact Date) SpO2 98% Social History Tobacco Use Smoking status: Never History reviewed. No pertinent past medical history. I have confirmed and edited as necessary, the [facility] Review of Systems Constitutional: Positive for chills, fever and malaise/fatigue. HENT: Positive for congestion, ear pain, sinus pain and sore throat. Respiratory: Positive for cough. Negative for sputum production, shortness of breath and wheezing. Cardiovascular: Negative for chest pain. Gastrointestinal: Negative for abdominal pain, diarrhea, nausea and vomiting. Musculoskeletal: Positive for myalgias. Neurological: Negative for headaches. Objective Physical Exam Vitals and nursing note reviewed. HENT: Head: Normocephalic and atraumatic. Right Ear: Ear canal and external ear normal. A middle ear effusion (clear) is present. Tympanic membrane is bulging. Left Ear: Ear canal and external ear normal. A middle ear effusion (clear) is present. Tympanic membrane is bulging. Nose: Mucosal edema, congestion and rhinorrhea present. Right Sinus: No maxillary sinus tenderness or frontal sinus tenderness. Left Sinus: No maxillary sinus tenderness or frontal sinus tenderness. Mouth/Throat: Pharynx: Uvula midline. Posterior oropharyngeal erythema (mild) and postnasal drip present. No oropharyngeal exudate. Cardiovascular: Rate and Rhythm: Normal rate and regular rhythm. Heart sounds: Normal heart sounds. Pulmonary: Effort: Pulmonary effort is normal. Breath sounds: Normal breath sounds. Lymphadenopathy: Head: Right side of head: No submental, submandibular or tonsillar adenopathy. Left side of head: No submental, submandibular or tonsillar adenopathy. Cervical: No cervical adenopathy. Skin: General: Skin is warm and dry. Neurological: Mental Status: She is alert. Psychiatric: Mood and Affect: Affect normal. ASSESSMENT/PLAN: 1. Flu-like symptoms - ICD9: 780.99, ICD10: R68.89 (primary diagnosis) Home isolation until fever free Testing ordered Comfort measures discussed - see patient instructions. When to seek higher level of care Notified in 12-24 hours with results, available on [facility] - COVID AND INFLUENZA A/B AND RSV PCR, ROUTINE - INFLUENZA AANDB MOLECULAR (POC) 2. URI with cough and congestion - ICD9: 465.9, ICD10: J06.9 - Discussed viral etiology and rationale for treatment. - Symptomatic treatment with prn analgesia - Supportive care with fluids and rest - The patient may also use OTC cough and cold meds as needed and warm salt water gargles, throat lozenges and/or OTC throat spray as needed. - Follow up in one week if symptoms persist or sooner if worsening of symptoms - COVID AND INFLUENZA A/B AND RSV PCR, ROUTINE 3. Influenza A - ICD9: 487.1, ICD10: J10.1 Started on Tamiflu today, side effects discussed Follow up with PCP prn Diagnosis and treatment plan were discussed and questions were answered to the patient's satisfaction. Pt acknowledged understanding of concepts and follow up plan. Specific signs and symptoms that would indicate the need for higher level of care were discussed in detail warranting prompt ER evaluation. Sarah Crum APRN.[facility] 09-02-2024 History of Presen t illness Narrative Subjective The history is provided by the patient. No manganese breaker was used. HPI Amish Cueto is a 43 year old female who presents today for CC of flu like symptoms - fever, chills, body aches, cough, congestion, ear pressure, and runny nose for 2 days. She has used Ibuprofen and mucinex with little relief. 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 BP 126/88 Pulse 110 Temp 37 C (98.6 F) Resp 20 Wt 64 kg (141 lb 1.5 oz) LMP 08/19/2024 (Exact Date) SpO2 98% Social History Tobacco Use Smoking status: Never History reviewed. No pertinent past medical history. I have confirmed and edited as necessary, the [facility] Review of Systems Constitutional: Positive for chills, fever and malaise/fatigue. HENT: Positive for congestion, ear pain, sinus pain and sore throat. Respiratory: Positive for cough. Negative for sputum production, shortness of breath and wheezing. Cardiovascular: Negative for chest pain. Gastrointestinal: Negative for abdominal pain, diarrhea, nausea and vomiting. Musculoskeletal: Positive for myalgias. Neurological: Negative for headaches. Objective Physical Exam Vitals and nursing note reviewed. HENT: Head: Normocephalic and atraumatic. Right Ear: Ear canal and external ear normal. A middle ear effusion (clear) is present. Tympanic membrane is bulging. Left Ear: Ear canal and external ear normal. A middle ear effusion (clear) is present. Tympanic membrane is bulging. Nose: Mucosal edema, congestion and rhinorrhea present. Right Sinus: No maxillary sinus tenderness or frontal sinus tenderness. Left Sinus: No maxillary sinus tenderness or frontal sinus tenderness. Mouth/Throat: Pharynx: Uvula midline. Posterior oropharyngeal erythema (mild) and postnasal drip present. No oropharyngeal exudate. Cardiovascular: Rate and Rhythm: Normal rate and regular rhythm. Heart sounds: Normal heart sounds. Pulmonary: Effort: Pulmonary effort is normal. Breath sounds: Normal breath sounds. Lymphadenopathy: Head: Right side of head: No submental, submandibular or tonsillar adenopathy. Left side of head: No submental, submandibular or tonsillar adenopathy. Cervical: No cervical adenopathy. Skin: General: Skin is warm and dry. Neurological: Mental Status: She is alert. Psychiatric: Mood and Affect: Affect normal. ASSESSMENT/PLAN: 1. Flu-like symptoms - ICD9: 780.99, ICD10: R68.89 (primary diagnosis) Home isolation until fever free Testing ordered Comfort measures discussed - see patient instructions. When to seek higher level of care Notified in 12-24 hours with results, available on mychart - COVID & INFLUENZA A/B & RSV PCR, ROUTINE - INFLUENZA A&B MOLECULAR (POC) 2. URI with cough and congestion - ICD9: 465.9, ICD10: J06.9 - Discussed viral etiology and rationale for treatment. - Symptomatic treatment with prn analgesia - Supportive care with fluids and rest - The patient may also use OTC cough and cold meds as needed and warm salt water gargles, throat lozenges and/or OTC throat spray as needed. - Follow up in one week if symptoms persist or sooner if worsening of symptoms - COVID & INFLUENZA A/B & RSV PCR, ROUTINE 3. Influenza A - ICD9: 487.1, ICD10: J10.1 Started on Tamiflu today, side effects discussed Follow up with PCP prn Diagnosis and treatment plan were discussed and questions were answered to the patient's satisfaction. Pt acknowledged understanding of concepts and follow up plan. Specific signs and symptoms that would indicate the need for higher level of care were discussed in detail warranting prompt ER evaluation. Sarah Crum APRN.LIU documented in this encounter [facility] 11-01-2023 History of Presen t illness Narrative Department of Neurological Sciences Initial Consult Note CHIEF COMPLAINT: Chief Complaint Patient presents with New Patient EMG showed possible mononeuropathy in both feet. Reason for Consult: toe spasms HISTORY OF PRESENT ILLNESS: The patient is a 42 y.o. female who presents for evaluation of cramping of her toes. She is unaccompanied for her visit today. She reports that in May of 2023 she began experiencing a severe, painful spasm in her toes bilaterally. She states she will go to bed for the night and as soon as she settles in the bed her toes will spasm. She states this was happening every night at first. The spasm will last 10-15 minutes. She advises that currently the spasms are random for several days at a time and then she will not experience any for a few days. She reports about 3 times a week she will experience the spasms. She has seen a chiropractor and a door attendant. 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 --Reports some mild lower lumbar pain at times, nothing chronic. --Patient also advises of an incidence in May of 2021 where she began smelling cigarette smoke when there was no smoke around her. An MRI of her brain was ordered at the time. This was reported normal. She states she still will randomly experience this still currently. --She denies any history of migraines in her family or with herself. --Patient is positive for anxiety and depression. --There is family history of Shy-drager syndrome and multiple sclerosis. --Patient is a non smoker. She does not drink alcohol currently. Past Medical History: Past Medical History: Diagnosis Date Anxiety Depression Hypothyroidism PCOS (polycystic ovarian syndrome) Prediabetes Past Surgical History: Past Surgical History: Procedure Laterality Date BREAST AUGMENTATION WITH IMPLANT (HISTORICAL) TUBAL LIGATION Medications: Current Outpatient Medications Medication Sig Dispense Refill levothyroxine (Synthroid, Levoxyl) 75 MCG tablet Take 75 mcg by mouth every morning (before breakfast). Trulicity 3 MG/0.5ML solution pen-injector Inject 3 mg under the skin 1 (one) time per week. venlafaxine XR (Effexor XR) 75 MG 24 hr capsule Take 75 mg by mouth daily. No current facility-administered medications for this visit. Allergies: Amoxicillin-pot clavulanate Social History: Social History Socioeconomic History Marital status: Spouse name: Not on file Number of children: Not on file Years of education: Not on file Highest education level: Not on file Occupational History Not on file Tobacco Use Smoking status: Never Smokeless tobacco: Never Vaping Use Vaping Use: Never used Substance and Sexual Activity Alcohol use: Not Currently Drug use: Not Currently Sexual activity: Not on file Other Topics Concern Not on file Social History Narrative Not on file Social Determinants of Health Financial Resource Strain: Not on file Food Insecurity: Not on file Transportation Needs: Not on file Physical Activity: Not on file Stress: Not on file Social Connections: Not on file Intimate Partner Violence: Not on file Housing Stability: Not on file Family History: Family History Problem Relation Name Age of Onset Other Mother's Brother Shy-drager Syndrome Multiple sclerosis Maternal Cousin REVIEW OF SYSTEMS: Review of Systems Constitutional: Negative. HENT: Positive for rhinorrhea. Eyes: Negative. Respiratory: Negative. Cardiovascular: Negative. Gastrointestinal: Positive for nausea. Endocrine: Negative. Genitourinary: Negative. Musculoskeletal: Positive for back pain, myalgias and neck stiffness. Toe cramps Skin: Negative. Allergic/Immunologic: Negative. Neurological: Positive for numbness (positional). Hematological: Bruises/bleeds easily. Psychiatric/Behavioral: The patient is nervous/anxious. PHYSICAL EXAM: Vitals: BP 93/68 (BP Location: Left arm) Pulse 85 Temp 36.8 C (98.2 F) (Infrared) Ht 5' 4.5 (1.638 m) Wt 133 lb (60.3 kg) BMI 22.48 kg/m Physical Exam Constitutional: Appearance: Normal appearance. HENT: Head: Normocephalic and atraumatic. Nose: Nose normal. Mouth/Throat: Mouth: Mucous membranes are moist. Pharynx: Oropharynx is clear. Eyes: General: Vision grossly intact. Gaze aligned appropriately. Extraocular Movements: Extraocular movements intact. Conjunctiva/sclera: Conjunctivae normal. Pupils: Pupils are equal, round, and reactive to light. Neck: Trachea: Trachea and phonation normal. Cardiovascular: Rate and Rhythm: Normal rate and regular rhythm. Pulses: Normal pulses. Heart sounds: Normal heart sounds. Pulmonary: Effort: Pulmonary effort is normal. Breath sounds: Normal breath sounds. Abdominal: General: Abdomen is flat. Bowel sounds are normal. Palpations: Abdomen is soft. Musculoskeletal: General: Normal range of motion. Cervical back: Normal range of motion and neck supple. Skin: General: Skin is warm and dry. Neurological: General: No focal deficit present. Mental Status: She is alert and oriented to person, place, and time. Mental status is at baseline. Cranial Nerves: Cranial nerves 2-12 are intact. Deep Tendon Reflexes: Reflexes are normal and symmetric. Reflex Scores: Tricep reflexes are 2+ on the right side and 2+ on the left side. Bicep reflexes are 2+ on the right side and 2+ on the left side. Brachioradialis reflexes are 2+ on the right side and 2+ on the left side. Patellar reflexes are 2+ on the right side and 2+ on the left side. Achilles reflexes are 2+ on the right side and 2+ on the left side. Comments: Normal sensation and strength in legs bilaterally. Psychiatric: Attention and Perception: Attention normal. Mood and Affect: Mood normal. Speech: Speech normal. Behavior: Behavior normal. Behavior is cooperative. Thought Content: Thought content normal. Cognition and Memory: Cognition normal. Judgment: Judgment normal. Impression: Diagnosis Plan 1. Cramp in muscle Plan: 1. Since patient have abnormal neurological exam and her muscle cramps occur only occasionally, we are not going to start any specific treatment at this time. 2. Patient have borderline vitamin B12 levels, she will benefit from 1 taking vitamin B12 500 mcg every other day. Patient will need to recheck vitamin B12 in 6 months. 3. Patient will return to the neurology clinic in 3 months for further evaluation thank you. ABBY HOYOS MD documented in this encounter [facility] 09-09-2023 Note Per recent request - please scan Referral received at [facility] in patient's Chart to attach to appointment with Dr Hoyos. [facility] 09-09-2023 Telephone encounter Note Referral attached. [facility] 09-09-2023 Miscellaneous Notes Referral attached. Per recent request - please scan Referral received at [facility] in patient's Chart to attach to appointment with Dr Hoyos. Name of caller: Amish Contact phone number: [phone] Relationship to Patient: Patient Provider: Dr Hoyos Practice: Neuro Chief Complaint/Reason for Call: [facility] did receive patient's Referral via fax - requested to have scanned into patient's Chart so it could be attached to patient's appt with Dr Hoyos on 11-01-2023. Please scan into Chart so it can be attached. Thank you. Best time of day caller can be reached: any Patient advised that office/PCP has 24-48 business hours to return their call: No Lm with correct fax information. No referral has been rec'd. Name of Caller: Amish Contact Reason for Appointment: Amish is having a referral sent to the office. Please call to schedule when referral is received. Office Name: Neurology Medication Refills need, if any: N/A Medication Name: N/A Pt checking if the referral has been sent yet? Please advise if pt needs to contact her pcp/ Referral for neuropathy. Cesar I checked the patient chart and our fax inbox, but at this time we have not received her referral. Patient can call her PCP and let them know that we have not received the referral and give them our fax number ([phone]) if needed. Thank you. Name of Caller: Amish Contact Reason for Appointment: Pt states she needs to schedule. Pt states her pcp sent in a referral. Please advise. Office Name: Neurophysiology and General Neurology documented in this encounter [facility] 09-09-2023 Telephone encounter Note Per recent request - please scan Referral received at [facility] in patient's Chart to attach to appointment with Dr Hoyos. [facility] 09-08-2023 Telephone encounter Note Name of caller: Amish Contact phone number: [phone] Relationship to Patient: Patient Provider: Dr Hoyos Practice: Neuro Chief Complaint/Reason for Call: Neuro [facility] did receive patient's Referral via fax - requested to have scanned into patient's Chart so it could be attached to patient's appt with Dr Hoyos on 11-01-2023. Please scan into Chart so it can be attached. Thank you. Best time of day caller can be reached: any Patient advised that office/PCP has 24-48 business hours to return their call: No [facility] 09-01-2023 Note Lm with correct fax information. No referral has been rec'd. [facility] 09-01-2023 Telephone encounter Note Lm with correct fax information. No referral has been rec'd. [facility] 08-31-2023 Telephone encounter Note Name of Caller: Amish Contact Reason for Appointment: Amish is having a referral sent to the office. Please call to schedule when referral is received. Office Name: Neurology Medication Refills need, if any: N/A Medication Name: N/A [facility] 08-31-2023 Telephone encounter Note Name of Caller: Amish Contact Reason for Appointment: Amish is having a referral sent to the office. Please call to schedule when referral is received. Office Name: Neurology Medication Refills need, if any: N/A Medication Name: N/A [facility] 08-31-2023 Miscellaneous Notes Name of Caller: Amish Contact Reason for Appointment: Amish is having a referral sent to the office. Please call to schedule when referral is received. Office Name: Neurology Medication Refills need, if any: N/A Medication Name: N/A documented in this encounter [facility] 08-29-2023 Note Pt checking if the r eferral has been sent yet? Please advise if pt needs to contact her pcp/ Referral for neuropathy. [facility] 08-29-2023 Telephone encounter Note Pt checking if the referral has been sent yet? Please advise if pt needs to contact her pcp/ Referral for neuropathy. [facility] 08-22-2023 Note Cesar I checked the patient chart and our fax inbox, but at this time we have not received her referral. Patient can call her PCP and let them know that we have not received the referral and give them our fax number ([phone]) if needed. Thank you. [facility] 08-22-2023 Note Name of Caller: Steve lindsey Contact Reason for Appointment: Pt states she needs to schedule. Pt states her pcp sent in a referral. Please advise. Office Name: Neurophysiology and General Neurology [facility] 08-22-2023 Telephone encounter Note Cesar I checked the patient chart and our fax inbox, but at this time we have not received her referral. Patient can call her PCP and let them know that we have not received the referral and give them our fax number ([phone]) if needed. Thank you. [facility] 08-22-2023 Telephone encounter Note Name of Caller: Amish Contact Reason for Appointment: Pt states she needs to schedule. Pt states her pcp sent in a referral. Please advise. Office Name: Neurophysiology and General Neurology [facility] Evaluation note Diagnosis Cramp in muscle- Primary Cramp of limb [facility] this [facility] Diagnosis Flu-like symptoms- Primary Other general symptoms URI with cough and congestion Influenza A Influenza with other respiratory manifestations documented in this encounter [facility] Summary Purpose Family History No Family History Records FoundNo Family History Records FoundNo Family History Records Found Advance Directives No Advanced Directives Records FoundNo Advanced Directives Records FoundNo Advanced Directives Records Found Additional Source Comments Reason for Visit (unrecogniz ed section and content) Reason Onset Date Comments Appointment Request 08/31/2023 Error (VOID this visit) 08/31/2023 Reason Onset Date Comments Appointment Request 08/22/2023 Appointment 08/22/2023 Referral 08/22/2023 Please scan Refe rral received in Chart. Reason Comments New Patient EMG showed possible mononeuropathy in both feet. Specialty Diagnoses / Procedures Referred By Jed guillermo Referred To Contact Neurology Diagnoses Cramp and spasm Paresthesia of skin Pain in right toe(s) Pain in left toe(s) Procedures CA OFFICE/OUTPATIENT ESTABLISHED MOD MDM 30 MIN Sandra Reynolds [address] [facility] [place] [address] [facility] Neuro [address] [place] [address] [place] [address] Referral ID Status Reason Start Date Expiration Date Visits Re quested Visits Authorized [id number] Closed 09/09/2023 09/08/2024 1 1 Reason Comments Fever Runny nose, cough, s ore throat, ear pain, nausea, bodyaches, x 2 days Care Teams (unrecognized sec tion and content) Md Allergy Immunology Relationship Specialty Start Date End Date Abdias Cheatham [address] [facility] [address] [place] [id number] PCP - General Family Medicine 11/01/23 Md Allergy Immunology Relationship Specialty Start Date End Date Abdias Cheatham [address] [facility] [address] [place] [id number] PCP - General Family Medicine 11/01/23 INFORMATION SOURCE (unrecogn ized section and content) DATE CREATED AUTHOR 11/04/2023 [employer] [facility] DATE CREATED AUTHOR AUTHOR'S ORGANIZ ATION 09/04/2024 [facility] DATE CREATED AUTHOR AUTHOR'S ORGANIZ ATION 01/18/[address] [facility] Source Comments (unrecognize d section and content) In the event this informatio n is protected by the Federal Confidentiality of Alcohol and Drug Abuse Patient Records regulations: The Federal rules restrict any use of the information to criminally investigate or prosecute any alcohol or drug abuse patient.[facility] FOR RECORDS PERTAINING TO PATIENTS WHO ARE [...] BE BASED ON THE PRIMARY CLINICAL RECORDS. [employer] [facility]. provides no warranty or guarantee of the accuracy or completeness of information in this document.
[2025-04-16 08:54] LABS: Vitamin D,25 Hydroxy 18.3 ng/mL (30-100)
[2025-04-16 13:06] LABS: PTHIN 53 pg/mL (11-61)
[2025-04-16 13:26] LABS: Anion Gap 12 (5-15); BUN 17 mg/dL (4-19); BUN/Creat Ratio 23.3 RATIO (10-20); Calcium,Total 9.1 mg/dL (7.6-11.0); Carbon Dioxide 23.5 mmol/L (21.0-32.0); Chloride 104 mmol/L (98-108); Glucose 95 mg/dL (70-99); Magnesium 1.8 mg/dL (1.5-2.2); Potassium 4.1 mmol/L (3.3-5.1); Vitamin D,25 Hydroxy 49.3 ng/mL (30-100)
== END | disposition home or self-care (01) ==
PROVIDERS: PCP Family Medicine; Referring Provider Family Medicine; Visit Provider Family Medicine
DX: E55.9 Vitamin D deficiency, unspecified (principal); E03.9 Hypothyroidism, unspecified
CPT/HCPCS: 36415; 80048; 82306; 83735; 83970; 84100; 84443